=== PATIENT | male | born 1955 | race Caucasian/White ===

== ENCOUNTER 2019-10-08 16:02 | Emergency (ER) | payer OTHER, SELFPAY ==
[2019-10-08 16:49] VITALS: BP 158/87; PULSE 77; RESP 16; TEMP 36.8; O2SAT 95; BMI 39.5
[2019-10-08 17:33] LABS: Basophils % 0.6 %; Eosinophils # 0.1 10^3/uL (0.0-0.8); Hematocrit 44.1 % (42.0-52.0); Hemoglobin 13.4 g/dL (11.7-16.6); Lymphocytes # 1.9 10^3/uL (0.8-4.8); Lymphocytes % 27.9 %; Mean Corpuscular HGB Conc 30.4 g/dL (30.0-36.0); Mean Corpuscular Hemoglobin 26.6 pg (28.0-34.0); Mean Corpuscular Volume 87.5 fL (80-94); Mean Platelet Volume 8.6 fL (7.4-10.4); Monocytes # 0.7 10^3/uL (0.2-0.9); Monocytes % 10.1 %; Neutrophils % 59.8 %; Nucleated Red Blood Cells % 0 %; Platelet Count 245 10^3/cmm (130-400); Red Blood Count 5.04 10^6/uL (4.1-5.3); Red Cell Distribution Width 22.2 % (12.1-15.1); White Blood Count 6.8 10^3/uL (4.0-10.0)
[2019-10-08 17:37] LABS: Add RBC Morph No
[2019-10-08 17:50] LABS: Alanine Aminotransferase 38 U/L (0-41); Albumin Level 4.4 g/dL (3.5-5.2); Alkaline Phosphatase 56 IU/L (40-130); Anion Gap 18.1 (5-19); Aspartate Amino Transferase 39 U/L (0-40); Blood Urea Nitrogen 11 mg/dL (8-23); Carbon Dioxide 25 mmol/L (22-29); Chloride 92 mmol/L (98-107); Globulin 3.6 g/dL (1.3-4.6); Glomerular Filtration Rate 135.6 mL/min (90-130); Glucose 204 mg/dL (74-106); Potassium 4.1 mmol/L (3.5-5.1); Sodium 131 mmol/L (136-145); Total Bilirubin 0.4 mg/dL (0.15-1.2)
--- NOTE | 2019-10-08 19:39 | ED_ITS ---
HPI - Male Genitourinary General Chief complaint: Urogenital-Male Stated complaint: c/o of rectum prolapsing when he tries to have BM- today, hx of current colon CA tx Time Seen by Provider: 10/08/19 19:28 Source: patient Mode of arrival: ambulatory Related Data Allergies Allergy/AdvReac Type Severity Reaction Status Date / Time aspirin Allergy ALGY-Hives Verified 10/08/19 17:03 MDM - Male Lab Data Result diagrams: 10/08/19 17:25 10/08/19 17:25 Labs: Lab Results 10/08/19 10/08/19 Range/Units 17:25 17:25 WBC 6.8 (4.0-10.0) 10^3/uL RBC 5.04 (4.1-5.3) 10^6/uL Hgb 13.4 (11.7-16.6) g/dL Hct 44.1 (42.0-52.0) % MCV 87.5 (80-94) fL MCH 26.6 L (28.0-34.0) pg MCHC 30.4 (30.0-36.0) g/dL RDW 22.2 H (12.1-15.1) % Plt Count 245 (130-400) 10^3/cmm MPV 8.6 (7.4-10.4) fL Neut % (Auto) 59.8 % Lymph % (Auto) 27.9 % [place] % (Auto) 10.1 % Eos % (Auto) 1.0 % Baso % (Auto) 0.6 % Neut # (Auto) 4.0 (1.8-7.7) 10^3/uL Lymph # (Auto) 1.9 (0.8-4.8) 10^3/uL [place] # (Auto) 0.7 (0.2-0.9) 10^3/uL Eos # (Auto) 0.1 (0.0-0.8) 10^3/uL Baso # (Auto) 0.0 (0.0-0.1) 10^3/uL Nucleated RBC % (auto) 0 % Nucleated RBCs # 0.0 /100WBC Sodium 131 L (136-145) mmol/L Potassium 4.1 (3.5-5.1) mmol/L Chloride 92 L (98-107) mmol/L Carbon Dioxide 25 (22-29) mmol/L Anion Gap 18.1 (5-19) BUN 11 (8-23) mg/dL Creatinine 0.6 L (0.7-1.2) mg/dL GFR Calculation 135.6 H (90-130) mL/min Glucose 204 H (74-106) mg/dL Calcium 10.0 (8.8-10.2) mg/Dl Total Bilirubin 0.4 (0.15-1.2) mg/dL AST 39 (0-40) U/L ALT 38 (0-41) U/L Alkaline Phosphatase 56 (40-130) IU/L Total Protein 8.0 (6.6-8.7) g/dL Albumin 4.4 (3.5-5.2) g/dL Globulin 3.6 (1.3-4.6) g/dL
--- NOTE | 2019-10-08 19:45 | W.ED.GENADLT ---
Documented by User: JAYME Rodriguez 10/08/19 19:48 HPI - General Adult General: Chief complaint: Urogenital-Male Stated complaint: c/o of rectum prolapsing when he tries to have BM- today, hx of current colon CA tx Time Seen by Provider: 10/08/19 19:28 History of Present Illness: MD complaint: rectal prolapse Onset (ago): day(s) Severity: moderate Quality: burning Associated symptoms: Deny chest pain, dyspnea, headache(s), nausea, rash or vomiting Review of Systems Const: Denies: fever, chills or body aches Eyes: Denies: change in vision or blurry vision ENMT: Denies: throat pain or nasal congestion Card: Denies: chest pain or shortness of breath on exertion Resp: Denies: shortness of breath, productive cough or non-productive cough GI: Reports: painful bowel movements (bowel protruding with BM), rectal pain and blood in stool; Denies: abdominal pain, nausea, vomiting, rectal swelling, rectal itching or mucus in stool : Denies: difficulty urinating Musc: Denies: extremity pain Skin/Breast: Denies: rash Neuro: Denies: headache Psych: Denies: anxiety or depression Oswaldo/Lymph: Denies: easy bruising PFSH ED PFSH: Statuses (acute, chronic, etc) shown below reflect problem list status as previously entered and may not be historically accurate Social History Smoking and tobacco status: former smoker Physical Exam Const: COMMON NORMALS: no apparent distress, average body habitus and oriented x3 HENMT: COMMON NORMALS: normocephalic HEAD & SCALP: normal to inspection and normocephalic FACE & SINUS: normal facial exam Eye: COMMON NORMALS: conjunctivae normal GENERAL EYE: normal appearance of both eyes CONJUNCTIVA: Yes conjunctivae normal Neck/C-Spine: COMMON NORMALS: no JVD Chest: COMMONS NORMALS: inspection of chest normal Resp: COMMON NORMALS: normal respiratory effort and clear to auscultation bilaterally AUSCULTATION: clear to auscultation bilaterally Cardio: COMMON NORMALS: no JVD, regular rate and regular rhythm RATE: regular rate RHYTHM: regular rhythm GI: COMMON NORMALS: normal to inspection, nondistended, normoactive bowel sounds RECTAL EXAM: Yes visual inspection abnormal, Yes heme positive stool, No hemorrhoids, Yes prolapse (none seen), Yes excoriation and Yes tenderness Extremity: COMMON NORMALS: normal to inspection and full ROM Neuro: COMMON NORMALS: oriented x3 Course Vital Signs: Vital signs: Vital Signs Temperature 98.2 F 10/08/19 16:49 Pulse Rate 68 10/08/19 21:21 Respiratory Rate 18 10/08/19 21:21 Blood Pressure 142/71 10/08/19 21:21 Pulse Oximetry 96 10/08/19 21:21 [facility] - General Adult Lab Data: Labs: Lab Results 10/08/19 10/08/19 10/08/19 Range/Units 17:25 17:25 17:25 WBC 6.8 (4.0-10.0) 10^3/ uL RBC 5.04 (4.1-5.3) 10^6/u L Hgb 13.4 (11.7-16.6) g/dL Hct 44.1 (42.0-52.0) % MCV 87.5 (80-94) fL MCH 26.6 L (28.0-34.0) pg MCHC 30.4 (30.0-36.0) g/dL RDW 22.2 H (12.1-15.1) % Plt Count 245 (130-400) 10^3/c mm MPV 8.6 (7.4-10.4) fL Neut % (Auto) 59.8 % Lymph % (Auto) 27.9 % [place] % (Auto) 10.1 % Eos % (Auto) 1.0 % Baso % (Auto) 0.6 % Neut # (Auto) 4.0 (1.8-7.7) 10^3/u L Lymph # (Auto) 1.9 (0.8-4.8) 10^3/u L [place] # (Auto) 0.7 (0.2-0.9) 10^3/u L Eos # (Auto) 0.1 (0.0-0.8) 10^3/u L Baso # (Auto) 0.0 (0.0-0.1) 10^3/u L Nucleated RBC % (a uto) 0 % Nucleated RBCs # 0.0 /100WBC PT 20.70 H (10.5-13.3) SECO NDS INR 1.72 H (0.8-1.2) Sodium 131 L (136-145) mmol/L Potassium 4.1 (3.5-5.1) mmol/L Chloride 92 L (98-107) mmol/L Carbon Dioxide 25 (22-29) mmol/L Anion Gap 18.1 (5-19) BUN 11 (8-23) mg/dL Creatinine 0.6 L (0.7-1.2) mg/dL GFR Calculation 135.6 H (90-130) mL/min Glucose 204 H (74-106) mg/dL Calcium 10.0 (8.8-10.2) mg/Dl Total Bilirubin 0.4 (0.15-1.2) mg/dL AST 39 (0-40) U/L ALT 38 (0-41) U/L Alkaline Phosphata se 56 (40-130) IU/L Total Protein 8.0 (6.6-8.7) g/dL Albumin 4.4 (3.5-5.2) g/dL Globulin 3.6 (1.3-4.6) g/dL Urine Color (Yellow) Urine Appearance (CLEAR) Urine pH (5-7) Ur Specific Gravit y (1.005-1.030) Urine Protein (Negative) Urine Glucose (UA) (Normal) Urine Ketones (Negative) Urine Occult Blood (Negative) Urine Nitrate (Negative) Urine Bilirubin (Negative) Urine Urobilinogen (Negative) mg/dL Ur Leukocyte [place] (Negative) 10/08/19 Range/Units 19:50 WBC (4.0-10.0) 10^3/ uL RBC (4.1-5.3) 10^6/u L Hgb (11.7-16.6) g/dL Hct (42.0-52.0) % MCV (80-94) fL MCH (28.0-34.0) pg MCHC (30.0-36.0) g/dL RDW (12.1-15.1) % Plt Count (130-400) 10^3/c mm MPV (7.4-10.4) fL Neut % (Auto) % Lymph % (Auto) % [place] % (Auto) % Eos % (Auto) % Baso % (Auto) % Neut # (Auto) (1.8-7.7) 10^3/u L Lymph # (Auto) (0.8-4.8) 10^3/u L [place] # (Auto) (0.2-0.9) 10^3/u L Eos # (Auto) (0.0-0.8) 10^3/u L Baso # (Auto) (0.0-0.1) 10^3/u L Nucleated RBC % (a uto) % Nucleated RBCs # /100WBC PT (10.5-13.3) SECO NDS INR (0.8-1.2) Sodium (136-145) mmol/L Potassium (3.5-5.1) mmol/L Chloride (98-107) mmol/L Carbon Dioxide (22-29) mmol/L Anion Gap (5-19) BUN (8-23) mg/dL Creatinine (0.7-1.2) mg/dL GFR Calculation (90-130) mL/min Glucose (74-106) mg/dL Calcium (8.8-10.2) mg/Dl Total Bilirubin (0.15-1.2) mg/dL AST (0-40) U/L ALT (0-41) U/L Alkaline Phosphata se (40-130) IU/L Total Protein (6.6-8.7) g/dL Albumin (3.5-5.2) g/dL Globulin (1.3-4.6) g/dL Urine Color Yellow (Yellow) Urine Appearance Clear (CLEAR) Urine pH 7 (5-7) Ur Specific [place]it y 1.010 (1.005-1.030) Urine Protein Neg (Negative) Urine Glucose (UA) 1+ (Normal) Urine Ketones Negative (Negative) Urine Occult Blood Neg (Negative) Urine Nitrate Negative (Negative) Urine Bilirubin Neg (Negative) Urine Urobilinogen Norm (Negative) mg/dL Ur Leukocyte Rosa [place] Negative (Negative) Discharge Plan Discharge Patient Disposition: Home, Self-Care Clinical Impression: Rectal prolapse, Rectal burning Condition: Stable Prescriptions: No Action metformin 500 mg Tablet 500 mg PO BID RF: 0 warfarin 7.5 mg Tablet 7.5 mg PO DAILY RF: 0 Zofran 8 mg Tablet 8 mg PO Q12H PRN (Reason: Nausea) RF: 0 lisinopril 20 mg Tablet 20 mg PO DAILY RF: 0 Compazine 10 mg Tablet 10 mg PO Q6H PRN (Reason: Nausea) RF: 0 gabapentin 300 mg Capsule 300 mg PO TID RF: 0 montelukast 10 mg Tablet 10 mg PO BEDTIME RF: 0 Lasix 20 mg Tablet 20 mg PO DAILY RF: 0 metoprolol tartrate 25 mg Tablet 25 mg PO DAILY RF: 0 Ambien CR 6.25 mg Tablet,Ext Release Multiphase 6.25 mg PO BEDTIME RF: 0 Referrals: Kelton Lanier [Primary Care Provider] - Discharge Activity: Resume usual activity Patient Instructions: Topical Barrier Preparations (On the skin) Activity Restrictions/Additional Instructions: pt to contact surgeon in morning, use immodium, rx given for amoxil and mycolog cream Discharge Date/Time: 10/08/19 21:29 Coding Level of Care Code ED Process Description Writer for Chg Fwd Exam Problem Focused Documented by User: Patrick Correa MD 10/09/19 02:19 HPI - General Adult General: Chief complaint: Urogenital-Male Stated complaint: c/o of rectum prolapsing when he tries to have BM- today, hx of current colon CA tx Time Seen by Provider: 10/08/19 19:28 PFSH ED PFSH: Statuses (acute, chronic, etc) shown below reflect problem list status as previously entered and may not be historically accurate Social History Smoking and tobacco status: former smoker Course Vital Signs: Vital signs: Vital Signs Temperature 98.2 F 10/08/19 16:49 Pulse Rate 68 10/08/19 21:21 Respiratory Rate 18 10/08/19 21:21 Blood Pressure 142/71 10/08/19 21:21 Pulse Oximetry 96 10/08/19 21:21 MDM - General Adult Lab Data: Labs: Lab Results 10/08/19 10/08/19 10/08/19 Range/Units 17:25 17:25 17:25 WBC 6.8 (4.0-10.0) 10^3/ uL RBC 5.04 (4.1-5.3) 10^6/u L Hgb 13.4 (11.7-16.6) g/dL Hct 44.1 (42.0-52.0) % MCV 87.5 (80-94) fL MCH 26.6 L (28.0-34.0) pg MCHC 30.4 (30.0-36.0) g/dL RDW 22.2 H (12.1-15.1) % Plt Count 245 (130-400) 10^3/c mm MPV 8.6 (7.4-10.4) fL Neut % (Auto) 59.8 % Lymph % (Auto) 27.9 % [place] % (Auto) 10.1 % Eos % (Auto) 1.0 % Baso % (Auto) 0.6 % Neut # (Auto) 4.0 (1.8-7.7) 10^3/u L Lymph # (Auto) 1.9 (0.8-4.8) 10^3/u L [place] # (Auto) 0.7 (0.2-0.9) 10^3/u L Eos # (Auto) 0.1 (0.0-0.8) 10^3/u L Baso # (Auto) 0.0 (0.0-0.1) 10^3/u L Nucleated RBC % (a uto) 0 % Nucleated RBCs # 0.0 /100WBC PT 20.70 H (10.5-13.3) SECO NDS INR 1.72 H (0.8-1.2) Sodium 131 L (136-145) mmol/L Potassium 4.1 (3.5-5.1) mmol/L Chloride 92 L (98-107) mmol/L Carbon Dioxide 25 (22-29) mmol/L Anion Gap 18.1 (5-19) BUN 11 (8-23) mg/dL Creatinine 0.6 L (0.7-1.2) mg/dL GFR Calculation 135.6 H (90-130) mL/min Glucose 204 H (74-106) mg/dL Calcium 10.0 (8.8-10.2) mg/Dl Total Bilirubin 0.4 (0.15-1.2) mg/dL AST 39 (0-40) U/L ALT 38 (0-41) U/L Alkaline Phosphata se 56 (40-130) IU/L Total Protein 8.0 (6.6-8.7) g/dL Albumin 4.4 (3.5-5.2) g/dL Globulin 3.6 (1.3-4.6) g/dL Urine Color (Yellow) Urine Appearance (CLEAR) Urine pH (5-7) Ur Specific Gravit y (1.005-1.030) Urine Protein (Negative) Urine Glucose (UA) (Normal) Urine Ketones (Negative) Urine Occult Blood (Negative) Urine Nitrate (Negative) Urine Bilirubin (Negative) Urine Urobilinogen (Negative) mg/dL Ur Leukocyte Rosa ase (Negative) 10/08/19 Range/Units 19:50 WBC (4.0-10.0) 10^3/ uL RBC (4.1-5.3) 10^6/u L Hgb (11.7-16.6) g/dL Hct (42.0-52.0) % MCV (80-94) fL MCH (28.0-34.0) pg MCHC (30.0-36.0) g/dL RDW (12.1-15.1) % Plt Count (130-400) 10^3/c mm MPV (7.4-10.4) fL Neut % (Auto) % Lymph % (Auto) % [place] % (Auto) % Eos % (Auto) % Baso % (Auto) % Neut # (Auto) (1.8-7.7) 10^3/u L Lymph # (Auto) (0.8-4.8) 10^3/u L [place] # (Auto) (0.2-0.9) 10^3/u L Eos # (Auto) (0.0-0.8) 10^3/u L Baso # (Auto) (0.0-0.1) 10^3/u L Nucleated RBC % (a uto) % Nucleated RBCs # /100WBC PT (10.5-13.3) SECO NDS INR (0.8-1.2) Sodium (136-145) mmol/L Potassium (3.5-5.1) mmol/L Chloride (98-107) mmol/L Carbon Dioxide (22-29) mmol/L Anion Gap (5-19) BUN (8-23) mg/dL Creatinine (0.7-1.2) mg/dL GFR Calculation (90-130) mL/min Glucose (74-106) mg/dL Calcium (8.8-10.2) mg/Dl Total Bilirubin (0.15-1.2) mg/dL AST (0-40) U/L ALT (0-41) U/L Alkaline Phosphata se (40-130) IU/L Total Protein (6.6-8.7) g/dL Albumin (3.5-5.2) g/dL Globulin (1.3-4.6) g/dL Urine Color Yellow (Yellow) Urine Appearance Clear (CLEAR) Urine pH 7 (5-7) Ur Specific Gravit y 1.010 (1.005-1.030) Urine Protein Neg (Negative) Urine Glucose (UA) 1+ (Normal) Urine Ketones Negative (Negative) Urine Occult Blood Neg (Negative) Urine Nitrate Negative (Negative) Urine Bilirubin Neg (Negative) Urine Urobilinogen Norm (Negative) mg/dL Ur Leukocyte Rosa a[place] Negative (Negative) Discharge Plan Discharge Patient Disposition: Home, Self-Care Clinical Impression: Rectal prolapse, Rectal burning Condition: Stable Prescriptions: No Action metformin 500 mg Tablet 500 mg PO BID RF: 0 warfarin 7.5 mg Tablet 7.5 mg PO DAILY RF: 0 Zofran 8 mg Tablet 8 mg PO Q12H PRN (Reason: Nausea) RF: 0 lisinopril 20 mg Tablet 20 mg PO DAILY RF: 0 Compazine 10 mg Tablet 10 mg PO Q6H PRN (Reason: Nausea) RF: 0 gabapentin 300 mg Capsule 300 mg PO TID RF: 0 montelukast 10 mg Tablet 10 mg PO BEDTIME RF: 0 Lasix 20 mg Tablet 20 mg PO DAILY RF: 0 metoprolol tartrate 25 mg Tablet 25 mg PO DAILY RF: 0 Ambien CR 6.25 mg Tablet,Ext Release Multiphase 6.25 mg PO BEDTIME RF: 0 Referrals: Kelton Lanier [Primary Care Provider] - Discharge Activity: Resume usual activity Patient Instructions: Topical Barrier Preparations (On the skin) Activity Restrictions/Additional Instructions: pt to contact surgeon in morning, use immodium, rx given for amoxil and mycolog cream Discharge Date/Time: 10/08/19 21:29 Coding Level of Care Code ED Process Description Writer for Chg Fwd Exam Problem Focused
--- NOTE | 2019-10-08 19:49 | PC.NURSE ---
PT PRESENTS WITH C/O RECTAL PROLAPSE
--- NOTE | 2019-10-08 19:53 | W.ED.MALEGU ---
HPI - Male Genitourinary General Chief complaint: Urogenital-Male Stated complaint: c/o of rectum prolapsing when he tries to have BM- today, hx of current colon CA tx Time Seen by Provider: 10/08/19 19:28 Related Data Home Medications Medication Instructions Recorded Confirmed furosemide [Lasix] 20 mg PO DAILY 10/08/19 10/08/19 gabapentin 300 mg PO TID 10/08/19 10/08/19 lisinopril 20 mg PO DAILY 10/08/19 10/08/19 metformin 500 mg PO BID 10/08/19 10/08/19 metoprolol tartrate 25 mg PO DAILY 10/08/19 10/08/19 montelukast 10 mg PO BEDTIME 10/08/19 10/08/19 ondansetron HCl [Zofran] 8 mg PO Q12H PRN 10/08/19 10/08/19 prochlorperazine maleate 10 mg PO Q6H PRN 10/08/19 10/08/19 [Compazine] warfarin 7.5 mg PO DAILY 10/08/19 10/08/19 zolpidem [Ambien CR] 6.25 mg PO BEDTIME 10/08/19 10/08/19 Allergies Allergy/AdvReac Type Severity Reaction Status Date / Time aspirin Allergy ALGY-Hives Verified 10/08/19 17:03 Discharge Plan Discharge Patient Disposition: Home, Self-Care Clinical Impression: Rectal prolapse, Rectal burning Condition: Stable Prescriptions: No Action metformin 500 mg Tablet 500 mg PO BID RF: 0 warfarin 7.5 mg Tablet 7.5 mg PO DAILY RF: 0 Zofran 8 mg Tablet 8 mg PO Q12H PRN (Reason: Nausea) RF: 0 lisinopril 20 mg Tablet 20 mg PO DAILY RF: 0 Compazine 10 mg Tablet 10 mg PO Q6H PRN (Reason: Nausea) RF: 0 gabapentin 300 mg Capsule 300 mg PO TID RF: 0 montelukast 10 mg Tablet 10 mg PO BEDTIME RF: 0 Lasix 20 mg Tablet 20 mg PO DAILY RF: 0 metoprolol tartrate 25 mg Tablet 25 mg PO DAILY RF: 0 Ambien CR 6.25 mg Tablet,Ext Release Multiphase 6.25 mg PO BEDTIME RF: 0 Referrals: Kelton Lanier [Primary Care Provider] - Discharge Activity: Resume usual activity Patient Instructions: Topical Barrier Preparations (On the skin) Activity Restrictions/Additional Instructions: pt to contact surgeon in morning, use immodium, rx given for amoxil and mycolog cream MDM - Male Lab Data Result diagrams: 10/08/19 17:25 10/08/19 17:25 Labs: Lab Results 10/08/19 10/08/19 10/08/19 Range/Units 17:25 17:25 19:50 WBC 6.8 (4.0-10.0) 10^3/uL RBC 5.04 (4.1-5.3) 10^6/uL Hgb 13.4 (11.7-16.6) g/dL Hct 44.1 (42.0-52.0) % MCV 87.5 (80-94) fL MCH 26.6 L (28.0-34.0) pg MCHC 30.4 (30.0-36.0) g/dL RDW 22.2 H (12.1-15.1) % Plt Count 245 (130-400) 10^3/cmm MPV 8.6 (7.4-10.4) fL Neut % (Auto) 59.8 % Lymph % (Auto) 27.9 % [place] % (Auto) 10.1 % Eos % (Auto) 1.0 % Baso % (Auto) 0.6 % Neut # (Auto) 4.0 (1.8-7.7) 10^3/uL Lymph # (Auto) 1.9 (0.8-4.8) 10^3/uL [place] # (Auto) 0.7 (0.2-0.9) 10^3/uL Eos # (Auto) 0.1 (0.0-0.8) 10^3/uL Baso # (Auto) 0.0 (0.0-0.1) 10^3/uL Nucleated RBC % (auto) 0 % Nucleated RBCs # 0.0 /100WBC Sodium 131 L (136-145) mmol/L Potassium 4.1 (3.5-5.1) mmol/L Chloride 92 L (98-107) mmol/L Carbon Dioxide 25 (22-29) mmol/L Anion Gap 18.1 (5-19) BUN 11 (8-23) mg/dL Creatinine 0.6 L (0.7-1.2) mg/dL GFR Calculation 135.6 H (90-130) mL/min Glucose 204 H (74-106) mg/dL Calcium 10.0 (8.8-10.2) mg/Dl Total Bilirubin 0.4 (0.15-1.2) mg/dL AST 39 (0-40) U/L ALT 38 (0-41) U/L Alkaline Phosphatase 56 (40-130) IU/L Total Protein 8.0 (6.6-8.7) g/dL Albumin 4.4 (3.5-5.2) g/dL Globulin 3.6 (1.3-4.6) g/dL Urine Color Yellow (Yellow) Urine Appearance Clear (CLEAR) Urine pH 7 (5-7) Ur Specific [place] 1.010 (1.005-1.030) Urine Protein Neg (Negative) Urine Glucose (UA) 1+ (Normal) Urine Ketones Negative (Negative) Urine Occult Blood Neg (Negative) Urine Nitrate Negative (Negative) Urine Bilirubin Neg (Negative) Urine Urobilinogen Norm (Negative) mg/dL Ur Leukocyte Esterase Negative (Negative)
[2019-10-08 20:08] LABS: Add Urine Microscopic? NO
[2019-10-08 20:22] LABS: Bilirubin Urine Neg (Negative); Blood Urine Neg (Negative); Glucose Urine UA 1+ (Normal); Ketones Urine Negative (Negative); Leukocyte Esterase Urine Negative (Negative); Nitrate Urine Negative (Negative); Protein Urine Neg (Negative); Urine Appearance Clear (CLEAR); Urine Color Yellow (Yellow); Urobilinogen Urine Norm (Negative); pH Urine 7 (5-7)
[2019-10-08 21:11] LABS: INR 1.72 (0.8-1.2)
[2019-10-08 21:21] VITALS: BP 142/71; PULSE 68; RESP 18; O2SAT 96
== END 2019-10-08 21:29 | disposition home or self-care (01) ==
PROVIDERS: Family Medicine; Emergency Provider Nurse Practitioner Family; PCP Student in an Organized Health Care Education/Training Program
DX: K62.3 Rectal prolapse (principal); Z87.891 Personal history of nicotine dependence
CPT/HCPCS: 36415; 80053; 81003; 85025; 85610; 99282

== ENCOUNTER → 2020-05-11 16:00 | Outpatient (BNVA) | payer MEDICARE, SELFPAY | PROVIDERS: PCP Student in an Organized Health Care Education/Training Program; Visit Provider Nurse Practitioner Family | DX: Z20.828 Contact with and (suspected) exposure to other viral communicable diseases (principal); Z11.59 Encounter for screening for other viral diseases | CPT/HCPCS: 87635 ==

== ENCOUNTER 2020-09-12 10:33 | Emergency (ER) | payer MEDICARE, SELFPAY ==
[2020-09-12] VITALS (8 sets, daily range): BP systolic 121–129; BP diastolic 71–100; PULSE 72–91; RESP 16–18; TEMP 36.5; O2SAT 91–96; BMI 35.6
--- NOTE | 2020-09-12 10:51 | W.ED.ABDPA2 ---
HPI - Abdominal Pain General: Chief Complaint: Abdominal Pain Stated Complaint: R ABDOMEN PAIN Time Seen by Provider: 09/12/20 10:38 Source: patient and family Mode of arrival: ambulatory Limitations: no limitations History of Present Illness: HPI narrative: Patient is a 65-year-old male with stage IV colon cancer who is currently on chemotherapy. He complains of right sided abdominal/right flank pain that started 3 days ago. Pain is worse on deep inspiration and on laying down. When he lies down he has trouble breathing. He denies any fever, nausea or vomiting. He has some diarrhea but he believes it is due to chemotherapy. Because of the pain he is here to be evaluated MD elicited complaint: abdominal pain and flank pain Onset (ago): day(s) (3) Pain Consistency: constant Location: RUQ and R flank Severity: severe Quality: cramping Associated Symptoms: Denies anorexia, belching, bloating, change in bowel habits, change in stool character, chills, coffee ground emesis, constipation, GI cramping, diarrhea, dyspepsia, dysuria, excessive flatus, fever(s), heartburn, hematochezia, hematuria, hematemesis, fecal incontinence, loose stools, melena, nausea, poor appetite, syncope and vomiting Review of Systems General: Reports: 10 or more systems reviewed and unremarkable except in HPI and below Const: Denies: fever(s) or chills Eyes: Denies: change in vision or blurry vision ENMT: Denies: throat pain, enlarged tonsils, odynophagia, hoarseness, mouth pain or swelling of lips/tongue Card: Denies: syncope Resp: Denies: dyspnea, productive cough or non-productive cough GI: Denies: nausea, vomiting, hematemesis, coffee ground emesis, heartburn, diarrhea, constipation, bloating, GI cramping, belching, excessive flatus, fecal incontinence, change in bowel habits, change in stool character, hematochezia or melena : Denies: dysuria or hematuria Musc: Denies: neck pain, back pain or extremity swelling Skin/Breast: Denies: rash, pruritus or erythema Neuro: Denies: headache(s), numbness in extremities or weakness in extremities Endo: Denies: polyuria, polydipsia or tired all the time PFSH ED PFSH: Medical History CHF (congestive heart failure) Colon cancer COPD (chronic obstructive pulmonary disease) Diabetes Hypertension Insomnia Neuropathy GENIE (obstructive sleep apnea) Social History Smoking and tobacco status: former smoker Alcohol intake: never Physical Exam Const: COMMON NORMALS: no acute distress, average body habitus, patient oriented x3, no limitations, healthy appearing, alert and well nourished HENMT: COMMON NORMALS: normocephalic, atraumatic and moist oral mucous membranes HEAD & SCALP: normocephalic and atraumatic Neck/C-Spine: COMMON NORMALS: no meningeal signs and no JVD Resp: COMMON NORMALS: normal respiratory effort, No retractions, No use of accessory muscles, clear to auscultation bilaterally and percussion normal AUSCULTATION: clear to auscultation bilaterally PERCUSSION: percussion normal Cardio: COMMON NORMALS: no JVD, regular rate, regular rhythm, S1 normal heart sound present, S2 normal heart sound present, No gallops present (Cardio), No clicks present (Cardio), No murmurs present (Cardio), No rub (Cardio) and Peripheral pulses 2+ throughout RATE: regular rate RHYTHM: regular rhythm HEART SOUNDS: S1 normal heart sound present and S2 normal heart sound present PERIPHERAL PULSES: Peripheral pulses 2+ throughout GI: COMMON NORMALS: Normal to inspection, nondistended, normoactive bowel sounds present, Soft to palpation, No hepatosplenomegaly present, no masses and no bruits PALPATION: Yes Soft to palpation, Yes Tenderness to palpation present (GI) Details: RUQ, Yes Guarding due to palpation present (GI) and Yes No hepatosplenomegaly present Back/Pelvis: GENERAL BACK: Yes CVA tenderness CVA tenderness: right Extremity: COMMON NORMALS: normal to inspection, full ROM, capillary refill normal, no calf tenderness and no pedal edema Neuro: COMMON NORMALS: patient oriented x3 SENSORIUM/ORIENTATION: Yes alert MENINGEAL SIGNS: Yes no meningeal signs Skin: COMMON NORMALS: no rashes or lesions noted, no wounds, turgor normal, no jaundice, no petechiae and no mottling GENERAL SKIN EXAM: no rashes or lesions noted and turgor normal Course Reevaluation(s): Reevaluation #1: discussed her lab and imaging findings with him. No acute findings. We will discharge him home with pain medication as the pain might be muscular. No life-threatening cause for his pain could be identified. He voiced understanding and he is in agreement with the plan Time: 15:09 Vital Signs: Vital signs: Vital Signs Temperature 97.7 F 09/12/20 10:36 Pulse Rate 91 09/12/20 15:20 Respiratory Rate 16 09/12/20 15:20 Blood Pressure 129/87 09/12/20 15:20 Pulse Oximetry 91 09/12/20 15:20 MDM - Abdominal Pain MDM Narrative: Medical decision making narrative: 65-year-old male who presents with right flank/right upper quadrant pain. Evaluation in this emergency department was negative for acute findings. Because of the location of the pain and the fact that he is on chemotherapy for cancer plus he has had a prior history of PEs a CTA of his lungs was done which was negative for PE or other acute findings. A CT of his abdomen was also negative. Lab work was unremarkable. He is therefore sent home with a prescription for pain medication. Medical Records: Attestation: I reviewed the patient's medical records. Lab Data: Attestation: I reviewed the patient's lab results. Labs: Lab Results 09/12/20 09/12/20 09/12/20 Range/Units 11:30 12:05 12:05 WBC 8.9 (4.0-10.0) 10^3/ uL RBC 4.50 (4.1-5.3) 10^6/u L Hgb 13.6 (11.7-16.6) g/dL Hct 41.7 L (42.0-52.0) % MCV 92.7 (80-94) fL MCH 30.2 (28.0-34.0) pg MCHC 32.6 (30.0-36.0) g/dL RDW 14.6 (12.1-15.1) % Plt Count 205 (130-400) 10^3/c mm MPV 9.0 (7.4-10.4) fL Neut % (Auto) 73.1 % Lymph % (Auto) 18.8 % [place] % (Auto) 5.3 % Eos % (Auto) 1.6 % Baso % (Auto) 0.4 % Neut # (Auto) 6.50 (1.8-7.7) 10^3/u L Lymph # (Auto) 1.7 (0.8-4.8) 10^3/u L [place] # (Auto) 0.5 (0.2-0.9) 10^3/u L Eos # (Auto) 0.1 (0.0-0.8) 10^3/u L Baso # (Auto) 0.0 (0.0-0.1) 10^3/u L Nucleated RBC % (a uto) 0 % Nucleated RBCs # 0.0 /100WBC D-Dimer 1.73 H (0-0.59) ug/mIFE U Sodium (136-145) mmol/L Potassium (3.5-5.1) mmol/L Chloride (98-107) mmol/L Carbon Dioxide (22-29) mmol/L Anion Gap (5-19) BUN (8-23) mg/dL Creatinine (0.7-1.2) mg/dL GFR Calculation (90-130) mL/min Glucose (65-115) mg/dL Calculated Osmolal ity (285-295) mOsm/k g Lactate (0.5-2.2) mmol/L Calcium (8.5-10.5) mg/dL Total Bilirubin (0.15-1.2) mg/dL AST (0-40) U/L ALT (0-41) U/L Alkaline Phosphata se (40-130) IU/L Creatine Kinase (39-308) U/L C-Reactive Protein (0.0-4.9) mg/L Total Protein (6.6-8.7) g/dL Albumin (3.5-5.2) g/dL Globulin (1.3-4.6) g/dL Lipase (13-60) U/L Urine Color Straw (Yellow) Urine Appearance Clear (CLEAR) Urine pH 5 (5-7) Ur Specific Gravit y 1.005 (1.005-1.030) Urine Protein Neg (Negative) Urine Glucose (UA) Norm (Normal) Urine Ketones Negative (Negative) Urine Blood Neg (Negative) Urine Nitrate Negative (Negative) Urine Bilirubin Neg (Negative) Urine Urobilinogen Norm (Negative) mg/dL Ur Leukocyte Rosa ase Negative (Negative) 09/12/20 09/12/20 09/12/20 Range/Units 12:05 12:05 13:20 WBC (4.0-10.0) 10^3/ uL RBC (4.1-5.3) 10^6/u L Hgb (11.7-16.6) g/dL Hct (42.0-52.0) % MCV (80-94) fL MCH (28.0-34.0) pg MCHC (30.0-36.0) g/dL RDW (12.1-15.1) % Plt Count (130-400) 10^3/c mm MPV (7.4-10.4) fL Neut % (Auto) % Lymph % (Auto) % [place] % (Auto) % Eos % (Auto) % Baso % (Auto) % Neut # (Auto) (1.8-7.7) 10^3/u L Lymph # (Auto) (0.8-4.8) 10^3/u L [place] # (Auto) (0.2-0.9) 10^3/u L Eos # (Auto) (0.0-0.8) 10^3/u L Baso # (Auto) (0.0-0.1) 10^3/u L Nucleated RBC % (a uto) % Nucleated RBCs # /100WBC D-Dimer (0-0.59) ug/mIFE U Sodium 133 L (136-145) mmol/L Potassium 4.5 (3.5-5.1) mmol/L Chloride 97 L (98-107) mmol/L Carbon Dioxide 26 (22-29) mmol/L Anion Gap 14.5 (5-19) BUN 8 (8-23) mg/dL Creatinine 0.5 L (0.7-1.2) mg/dL GFR Calculation 166.9 H (90-130) mL/min Glucose 141 H (65-115) mg/dL Calculated Osmolal ity 277 L (285-295) mOsm/k g Lactate 1.9 (0.5-2.2) mmol/L Calcium 9.2 (8.5-10.5) mg/dL Total Bilirubin 0.4 (0.15-1.2) mg/dL AST 21 (0-40) U/L ALT 28 (0-41) U/L Alkaline Phosphata se 51 (40-130) IU/L Creatine Kinase 58 (39-308) U/L C-Reactive Protein 13.1 H (0.0-4.9) mg/L Total Protein 7.0 (6.6-8.7) g/dL Albumin 4.2 (3.5-5.2) g/dL Globulin 2.8 (1.3-4.6) g/dL Lipase 40 (13-60) U/L Urine Color (Yellow) Urine Appearance (CLEAR) Urine pH (5-7) Ur Specific Gravit y (1.005-1.030) Urine Protein (Negative) Urine Glucose (UA) (Normal) Urine Ketones (Negative) Urine Blood (Negative) Urine Nitrate (Negative) Urine Bilirubin (Negative) Urine Urobilinogen (Negative) mg/dL Ur Leukocyte Rosa ase (Negative) Imaging Data ^: CTA Chest: Radiologist's impression: [address] [address] [address] Scan Report Signed Patient: Santos Escalera #: [id number] : 5Acct#:[id number] Age/Sex: 65 / MADM Date: 09/12/20 Loc: [facility] [place]/Bed: Attending Dr: Ordering Provider/Ordering MD: Florina Li [place], [facility] [place] of Service: 09/12/20 Procedure(s): CT angio chest w abd pel w con Accession Number(s): [id number] Report Number: [id number] PROCEDURE INFORMATION: Exam: CT Angiography Chest With Contrast Exam date and time: 09/12/2020 1:29 PM Age: 65 years old Clinical indication: Abdominal pain; Right; Chest wall pain; Prior surgery; Surgery date: 6+ months; Surgery type: Port, multiple abd; Patient HX: HX of stage 4 colon CA - C/O R flank/r pleuritic cp w cough; Additional info: Right lower chest pain, pleuritic chest pain, high pretest TECHNIQUE: Imaging protocol: Computed tomographic angiography of the chest with intravenous contrast. 3D rendering (Not supervised by radiologist): MIP and/or 3D reconstructed images were created by the technologist. Radiation optimization: All CT scans at this facility use at least one of these dose optimization techniques: automated exposure control; mA and/or kV adjustment per patient size (includes targeted exams where dose is matched to clinical indication); or iterative reconstruction. Contrast material: OMNI 350; Contrast volume: 95 ml; Contrast route: INTRAVENOUS (IV); COMPARISON: No relevant prior studies available. RADIATION DOSE METRICS: Total DLP (mGy-cm): 2512.21 FINDINGS: Pulmonary arteries: Normal. No pulmonary emboli. Aorta: Unremarkable. No aortic aneurysm. No aortic dissection. Lungs: There is a 0.5 cm nodule in the right middle lobe on series 2, image 272. There is a calcified granuloma in the right lower lobe of the lung. There is probable atelectasis/scar in the lungs. No significant lung consolidation. Pleural space: Unremarkable. No pneumothorax. No pleural effusion. Heart: Unremarkable. No cardiomegaly. No pericardial effusion. Lymph nodes: Unremarkable. No enlarged lymph nodes. Bones/joints: Degenerative change is identified in the spine. There is no evidence for acute fracture or malalignment. Soft tissues: Unremarkable. IMPRESSION: There are no acute concerning abnormalities. There is a nodule in the right middle lobe of the lung.For patients at low risk (minimal or absent history of smoking and of other known risk factors), no routine follow-up is indicated. For patients at high risk (history of smoking or of other known risk factors), consider optional CT Chest at 12 months. (Reference: Verna) References: Verna Syed, et al. Guidelines for Management of Incidental Pulmonary Nodules Detected on CT Images: From the Fleischner Society 2017. Radiology. 2017;284(1):228-243. PROCEDURE INFORMATION: Exam: CT Abdomen And Pelvis With Contrast Exam date and time: 09/12/2020 1:29 PM Age: 65 years old Clinical indication: Abdominal pain; Right; Chest wall pain; Prior surgery; Surgery date: 6+ months; Surgery type: Port, multiple abd; Patient HX: HX of stage 4 colon CA - C/O R flank/r pleuritic cp w cough; Additional info: Right lower chest pain, pleuritic chest pain, high pretest TECHNIQUE: Imaging protocol: Computed tomography of the abdomen and pelvis with intravenous contrast. Radiation optimization: All CT scans at this facility use at least one of these dose optimization techniques: automated exposure control; mA and/or kV adjustment per patient size (includes targeted exams where dose is matched to clinical indication); or iterative reconstruction. Contrast material: OMNI 350; Contrast volume: 95 ml; Contrast route: INTRAVENOUS (IV); COMPARISON: No relevant prior studies available. RADIATION DOSE METRICS: Total DLP (mGy-cm): 2512.21 FINDINGS: Liver: Findings consistent with fatty infiltration of the liver are identified. No liver mass. Gallbladder and bile ducts: Normal. No calcified stones. No ductal dilation. Pancreas: Normal. No ductal dilation. Spleen: Normal. No splenomegaly. Adrenal glands: Normal. No mass. Kidneys and ureters: Normal. No hydronephrosis. Stomach and bowel: There has been a right hemicolectomy. No bowel obstruction or wall thickening. Appendix: No evidence of appendicitis. Intraperitoneal space: Unremarkable. No free air. No significant fluid collection. Vasculature: Unremarkable. No abdominal aortic aneurysm. Lymph nodes: Unremarkable. No enlarged lymph nodes. Urinary bladder: Unremarkable as visualized. Reproductive: Unremarkable as visualized. Bones/joints: Unremarkable. No acute fracture. Soft tissues: Unremarkable. CT/CT angio chest w abd pel w con IMPRESSION: There are no acute concerning abnormalities. Radiation Dose CTDIVOL = (mGy): DLP = 2512.21~2512.21 (mGy-cm) Dictated By:Dilan Jiménez MD Signed By:Dilan Jiménezigned Date/Time:09/12/201445 DD/ 144 Discharge Plan Discharge Patient Disposition: Home Clinical Impression: Abdominal wall pain in right flank Condition: Stable Prescriptions: [place] 5-325 mg tablet 1 tab PO Q8H PRN (Reason: pain) Qty: 20 RF: 0 Continued ondansetron HCl 8 mg tablet 8 mg PO Q12H PRN (Reason: Nausea) 30 Days Qty: 60 RF: 2 Compazine 10 mg tablet 10 mg PO Q6H PRN (Reason: Nausea) Qty: 60 RF: 2 albuterol sulfate [Ventolin HFA] 90 mcg/actuation HFA aerosol inhaler 2 puff INHALATION Q6H PRN (Reason: Shortness Of Breath) RF: 0 minocycline 100 mg capsule 100 mg PO Q12H RF: 0 montelukast 10 mg Tablet 10 mg PO BEDTIME@1800 RF: 0 metformin 500 mg tablet 500 mg PO BID@06,18 RF: 0 lisinopril 20 mg tablet 20 mg PO DAILY@0600 RF: 0 gabapentin 300 mg capsule 300 mg PO TID@06,,18 RF: 0 Lasix 20 mg tablet 20 mg PO DAILY@0600 RF: 0 metoprolol succinate 25 mg tablet extended release 24 hr 25 mg PO DAILY@0600 RF: 0 zolpidem 10 mg tablet 10 mg PO BEDTIME@1800 RF: 0 Discharge Orders: Discharge ED (Routine); Ordered 09/12/20 Ordered By: Florina Li Referrals: Kelton Lanier [Primary Care Provider] - 1-3 days Discharge Diet: Usual diet Discharge Activity: Increase activity as tolerated Patient Instructions: Hydrocodone/Acetaminophen (By mouth), Abdominal Pain (ED) Activity Restrictions/Additional Instructions: Return for any new or worsening symptoms. Follow-up with your primary care provider within 3 days. Take the pain medication as needed for pain. Coding Level of Care Code ED Guide Foreign Tour for Chg Fwd Exam Comprehensive
[2020-09-12 11:46] LABS: Add Urine Microscopic? NO
[2020-09-12 12:16] LABS: Specific Gravity, Urine 1.005 (1.005-1.030); Urine Appearance Clear (CLEAR); Urine Color Straw (Yellow); pH Urine 5 (5-7)
[2020-09-12 12:17] LABS: Bilirubin Urine Neg (Negative); Blood Urine Neg (Negative); Glucose Urine UA Norm (Normal); Ketones Urine Negative (Negative); Leukocyte Esterase Urine Negative (Negative); Nitrate Urine Negative (Negative); Protein Urine Neg (Negative); Urobilinogen Urine Norm (Negative)
[2020-09-12 12:26] LABS: Basophils % 0.4 %; Eosinophils # 0.1 10^3/uL (0.0-0.8); Eosinophils % 1.6 %; Hematocrit 41.7 % (42.0-52.0); Hemoglobin 13.6 g/dL (11.7-16.6); Lymphocytes # 1.7 10^3/uL (0.8-4.8); Lymphocytes % 18.8 %; Mean Corpuscular HGB Conc 32.6 g/dL (30.0-36.0); Mean Corpuscular Hemoglobin 30.2 pg (28.0-34.0); Mean Corpuscular Volume 92.7 fL (80-94); Monocytes # 0.5 10^3/uL (0.2-0.9); Monocytes % 5.3 %; Neutrophils % 73.1 %; Nucleated Red Blood Cells % 0 %; Platelet Count 205 10^3/cmm (130-400); Red Cell Distribution Width 14.6 % (12.1-15.1); White Blood Count 8.9 10^3/uL (4.0-10.0)
[2020-09-12 12:39] LABS: D Dimer 1.73 ug/mIFEU (0-0.59)
[2020-09-12 12:46] LABS: Alanine Aminotransferase 28 U/L (0-41); Albumin Level 4.2 g/dL (3.5-5.2); Alkaline Phosphatase 51 IU/L (40-130); Aspartate Amino Transferase 21 U/L (0-40); Blood Urea Nitrogen 8 mg/dL (8-23); C Reactive Protein 13.1 mg/L (0.0-4.9); Calcium 9.2 mg/dL (8.5-10.5); Carbon Dioxide 26 mmol/L (22-29); Chloride 97 mmol/L (98-107); Creatine Phosphokinase 58 U/L (39-308); Globulin 2.8 g/dL (1.3-4.6); Glomerular Filtration Rate 166.9 mL/min (90-130); Glucose 141 mg/dL (65-115); Osmolality Calculated 277 mOsm/kg (285-295); Sodium 133 mmol/L (136-145); Total Bilirubin 0.4 mg/dL (0.15-1.2)
[2020-09-12 12:50] LABS: Anion Gap 14.5 (5-19)
--- NOTE | 2020-09-12 12:50 | CTR_ITS ---
PROCEDURE INFORMATION: Exam: CT Angiography Chest With Contrast Exam date and time: 09/12/2020 1:29 PM Age: 65 years old Clinical indication: Abdominal pain; Right; Chest wall pain; Prior surgery; Surgery date: 6+ months; Surgery type: Port, multiple abd; Patient HX: HX of stage 4 colon CA - C/O R flank/r pleuritic cp w cough; Additional info: Right lower chest pain, pleuritic chest pain, high pretest TECHNIQUE: Imaging protocol: Computed tomographic angiography of the chest with intravenous contrast. 3D rendering (Not supervised by radiologist): MIP and/or 3D reconstructed images were created by the technologist. Radiation optimization: All CT scans at this facility use at least one of these dose optimization techniques: automated exposure control; mA and/or kV adjustment per patient size (includes targeted exams where dose is matched to clinical indication); or iterative reconstruction. Contrast material: OMNI 350; Contrast volume: 95 ml; Contrast route: INTRAVENOUS (IV); COMPARISON: No relevant prior studies available. RADIATION DOSE METRICS: Total DLP (mGy-cm): 2512.21 FINDINGS: Pulmonary arteries: Normal. No pulmonary emboli. Aorta: Unremarkable. No aortic aneurysm. No aortic dissection. Lungs: There is a 0.5 cm nodule in the right middle lobe on series 2, image 272. There is a calcified granuloma in the right lower lobe of the lung. There is probable atelectasis/scar in the lungs. No significant lung consolidation. Pleural space: Unremarkable. No pneumothorax. No pleural effusion. Heart: Unremarkable. No cardiomegaly. No pericardial effusion. Lymph nodes: Unremarkable. No enlarged lymph nodes. Bones/joints: Degenerative change is identified in the spine. There is no evidence for acute fracture or malalignment. Soft tissues: Unremarkable. IMPRESSION: There are no acute concerning abnormalities. There is a nodule in the right middle lobe of the lung.For patients at low risk (minimal or absent history of smoking and of other known risk factors), no routine follow-up is indicated. For patients at high risk (history of smoking or of other known risk factors), consider optional CT Chest at 12 months. (Reference: Verna) References: Verna Syed et al. Guidelines for Management of Incidental Pulmonary Nodules Detected on CT Images: From the Fleischner Society 2017. Radiology. 2017;284(1):228-243. PROCEDURE INFORMATION: Exam: CT Abdomen And Pelvis With Contrast Exam date and time: 09/12/2020 1:29 PM Age: 65 years old Clinical indication: Abdominal pain; Right; Chest wall pain; Prior surgery; Surgery date: 6+ months; Surgery type: Port, multiple abd; Patient HX: HX of stage 4 colon CA - C/O R flank/r pleuritic cp w cough; Additional info: Right lower chest pain, pleuritic chest pain, high pretest TECHNIQUE: Imaging protocol: Computed tomography of the abdomen and pelvis with intravenous contrast. Radiation optimization: All CT scans at this facility use at least one of these dose optimization techniques: automated exposure control; mA and/or kV adjustment per patient size (includes targeted exams where dose is matched to clinical indication); or iterative reconstruction. Contrast material: OMNI 350; Contrast volume: 95 ml; Contrast route: INTRAVENOUS (IV); COMPARISON: No relevant prior studies available. RADIATION DOSE METRICS: Total DLP (mGy-cm): 2512.21 FINDINGS: Liver: Findings consistent with fatty infiltration of the liver are identified. No liver mass. Gallbladder and bile ducts: Normal. No calcified stones. No ductal dilation. Pancreas: Normal. No ductal dilation. Spleen: Normal. No splenomegaly. Adrenal glands: Normal. No mass. Kidneys and ureters: Normal. No hydronephrosis. Stomach and bowel: There has been a right hemicolectomy. No bowel obstruction or wall thickening. Appendix: No evidence of appendicitis. Intraperitoneal space: Unremarkable. No free air. No significant fluid collection. Vasculature: Unremarkable. No abdominal aortic aneurysm. Lymph nodes: Unremarkable. No enlarged lymph nodes. Urinary bladder: Unremarkable as visualized. Reproductive: Unremarkable as visualized. Bones/joints: Unremarkable. No acute fracture. Soft tissues: Unremarkable. CT/CT angio chest w abd pel w con IMPRESSION: There are no acute concerning abnormalities. Radiation Dose CTDIVOL = (mGy): DLP = 2512.21~2512.21 (mGy-cm)
[2020-09-12 12:51] LABS: Potassium 4.5 mmol/L (3.5-5.1)
[2020-09-12 13:16] LABS: Lipase 40 U/L (13-60)
[2020-09-12] MEDS: iohexol 350 mg/mL 100 mL Btl IV (13:43)
[2020-09-12 13:46] LABS: Lactate (Lactic Acid level) 1.9 mmol/L (0.5-2.2)
[2020-09-12] MEDS: ondansetron 2 mg/ML SDV 2 mL 4 MG IVP (14:17)
[2020-09-12] MEDS: morphine 4 mg/mL SDV 1 mL IVP (14:17)
== END 2020-09-12 15:20 | disposition home or self-care (01) ==
PROVIDERS: Emergency Provider Family Medicine; PCP Student in an Organized Health Care Education/Training Program
DX: R10.9 Unspecified abdominal pain (principal); Z79.84 Long term (current) use of oral hypoglycemic drugs; I11.0 Hypertensive heart disease with heart failure; I50.9 Heart failure, unspecified; Z85.038 Personal history of other malignant neoplasm of large intestine; J44.9 Chronic obstructive pulmonary disease, unspecified; E11.40 Type 2 diabetes mellitus with diabetic neuropathy, unspecified; Z87.891 Personal history of nicotine dependence; Z79.899 Other long term (current) drug therapy
CPT/HCPCS: 12345; 71275; 74177; 80053; 81003; 82550; 83605; 83690; 85025; 85378; 86140; 96374; 96375; 99283; 99284; J2270; J2405; Q9967

== ENCOUNTER 2020-09-27 11:53 | Emergency (ER) | payer MEDICARE, SELFPAY ==
[2020-09-27] VITALS (7 sets, daily range): BP systolic 113–142; BP diastolic 75–85; PULSE 70–75; RESP 14–16; TEMP 36.4–37.3; O2SAT 93–98; BMI 35.3
--- NOTE | 2020-09-27 13:37 | USCV_ITS ---
Santos Escalera Age: 65 Gender: M : 1955 Exam Date: 09/27/2020 14:05 Ordering Phys: Harris Simon DO Technologist: Jacquelyn Hills [place] [facility] [place]: + covid, LLE hot/swelling/tender to touch HISTORY: Lower extremity swelling. Lower extremity pain. PROCEDURES: Venous duplex imaging was performed in only the left lower extremity. The following venous structures were evaluated: common femoral vein, profunda vein, proximal portion of the greater saphenous vein, superficial femoral vein, and the popliteal vein. In addition, the posterior tibial veins were evaluated. In addition, the posterior tibial and peroneal trunk were evaluated. FINDINGS: Evidence of acute occlusive deep vein thrombosis in the distal left femoral vein with abnormal flow dynamics. DVT extends into the popliteal and tibioperoneal trunk. No DVT proximal CFV. CONCLUSIONS Acute DVT left distal SFV through the tibioperoneal trunk. Dr. Cathy Farrell DO (Electronically Signed) Final Date: 27 September 2020 15:06 S
--- NOTE | 2020-09-27 13:48 | W.ED.EXTPRO ---
HPI - Extremity Problem General: Chief complaint: Infusion Kenny Stated complaint: COVID+, LLE HOT/SWELLING/TENDER TO TOUCH Time Seen by Provider: 09/27/20 13:29 History of Present Illness: HPI Narrative: 65-year-old male who comes in today complaining of left leg pain and swelling is getting progressively worse over the weekend. 5 days ago he was tested positive for Covid. In addition to that he has colon cancer is currently undergoing chemotherapy he was supposed to receive a round of chemo today but was not able to get therapy because of the leg pain and instead presented here. He denies any chest pain or shortness of breath. MD Complaint: extremity pain and extremity swelling Onset (ago): day(s) Pain Consistency: constant Location: left and lower extremity Quality: aching Radiation: none Relieving factors: immobilization Exacerbating factors: weight bearing, walking and exertion Associated symptoms: Deny arthralgias, chest pain, fever(s), myalgias, rash or short of breath Review of Systems Const: Denies: fever(s) ENMT: Denies: throat pain, ear or mastoid pain, nasal discharge or nasal congestion Card: Denies: chest pain Resp: Denies: dyspnea, productive cough or non-productive cough GI: Denies: abdominal pain, nausea, vomiting, hematemesis, coffee ground emesis, diarrhea, constipation, bloating, hematochezia or melena : Denies: flank pain, dysuria, urinary frequency or urinary urgency Skin/Breast: Denies: rash PFSH ED PFSH: Medical History CHF (congestive heart failure) Colon cancer COPD (chronic obstructive pulmonary disease) Diabetes Hypertension Insomnia Neuropathy GENIE (obstructive sleep apnea) Social History Smoking and tobacco status: former smoker Alcohol intake: never Physical Exam Const: COMMON NORMALS: no acute distress GENERAL APPEARANCE: cooperative and comfortable ORIENTATION/CONSCIOUSNESS: Yes awake, Yes oriented to person, Yes oriented to place and Yes oriented to time HENMT: COMMON NORMALS: normocephalic, atraumatic and hearing grossly normal bilaterally HEAD & SCALP: normocephalic and atraumatic Neck/C-Spine: COMMON NORMALS: no JVD Resp: COMMON NORMALS: normal respiratory effort, No retractions, No use of accessory muscles and clear to auscultation bilaterally AUSCULTATION: clear to auscultation bilaterally Cardio: COMMON NORMALS: no JVD, regular rate, regular rhythm and No murmurs present (Cardio) RATE: regular rate RHYTHM: regular rhythm GI: COMMON NORMALS: Soft to palpation and No hepatosplenomegaly present AUSCULTATION: Yes normoactive bowel sounds PALPATION: Yes Soft to palpation, No Tenderness to palpation present (GI), No Guarding due to palpation present (GI) and Yes No hepatosplenomegaly present Extremity: NARRATIVE EXTREMITY EXAM: Swelling and extreme tenderness of the left lower leg positive Homans test. Neuro: SENSORIUM/ORIENTATION: Yes oriented to person, Yes oriented to place and Yes oriented to time Skin: COMMON NORMALS: no rashes or lesions noted GENERAL SKIN EXAM: no rashes or lesions noted Course Vital Signs: Vital signs: Vital Signs Temperature 97.5 F L 09/27/20 17:37 Pulse Rate 70 09/27/20 17:37 Respiratory Rate 16 09/27/20 17:37 Blood Pressure 125/75 09/27/20 17:37 Pulse Oximetry 98 09/27/20 17:37 MDM - Extremity (Nontraumatic) MDM Narrative: Medical decision making narrative: Patient he does have a left lower leg DVT we will go ahead and give him Lovenox start him on Eliquis. In addition to that he is 5 days out from being tested positive for Covid. We will go ahead and give him albumin of the map infusion. I discussed this with him at length reviewed the risks and benefits he wishes to proceed he signed the consent we have called pharmacy and placed the order for the infusion. Discharge Plan Discharge Patient Disposition: Home Clinical Impression: Deep vein thrombosis of lower extremity, COVID-19 Condition: Stable Prescriptions: New Eliquis DVT-PE Treat 30D Start 5 mg (74 tabs) tablets,dose pack See Rx Instructions .ROUTE .COMPLEX Qty: 74 RF: 0 No Action ondansetron HCl 8 mg tablet 8 mg PO Q12H PRN (Reason: Nausea) 30 Days Qty: 60 RF: 2 Compazine 10 mg tablet 10 mg PO Q6H PRN (Reason: Nausea) Qty: 60 RF: 2 albuterol sulfate [Ventolin HFA] 90 mcg/actuation HFA aerosol inhaler 2 puff INHALATION Q6H PRN (Reason: Shortness Of Breath) RF: 0 metformin 500 mg tablet 500 mg PO BID@,18 RF: 0 lisinopril 20 mg tablet 20 mg PO DAILY@0600 RF: 0 gabapentin 300 mg capsule 300 mg PO TID@06,,18 RF: 0 furosemide [Lasix] 20 mg tablet 20 mg PO DAILY PRN (Reason: Edema) RF: 0 metoprolol succinate 25 mg tablet extended release 24 hr 25 mg PO DAILY@0600 RF: 0 zolpidem 10 mg tablet 10 mg PO BEDTIME@1800 RF: 0 hydrocodone-acetaminophen [[place]] 5-325 mg tablet 1 tab PO Q8H PRN (Reason: pain) Qty: 20 RF: 0 Discharge Orders: Discharge ED (Routine); Ordered 09/27/20 Ordered By: Harris Simon Referrals: Nan Sellers MD [Primary Care Provider] - Discharge Diet: Usual diet Discharge Activity: Increase activity as tolerated Coding Level of Care Code ED Action Installer for Chg Fwd Exam Comprehensive Monoclonal Antibody Treatments Inclusion/Exclusion Criteria weight >/= 40 kg and + direct Sars-Cov-2 test less than 7-10 days ago age >/= 65, receiving immunosuppressive therapy and has immunosuppressive disease not requiring hospitalization, not requiring oxygen (if not chronically on oxygen) and no increase oxygen requirement (if chronically on oxygen) Patient education patient/family/caregiver received/reviewed fact sheet, Emergency Use Authorization/unapproved drug status discussed with patient/family/caregiver, alternatives to this treatment discussed with patient/family/caregiver, risks and benefits of medication reviewed with patient/family/caregiver, patient/family/caregiver given opportunity for questions, which were answered and patient consents to receiving Monoclonal Antibody Treatment Plan for treatment Meets criteria for Monoclonal Antibody infusion Monoclonal antibody information given and Ordering Monoclonal Antibody infusion for today
[2020-09-27] MEDS: enoxaparin 120 mg/0.8 mL Syringe SUBCUT (15:30)
--- NOTE | 2020-09-28 16:17 | DCPLANNER ---
Addendum entered by Eva Vera 10/07/20 15:45: Patient returned case investigator phone, he stated that he was doing good. Patient stated that he was still a little weak, but he is feeling good. Patient also stated that he has not been admitted to the hospital. Addendum entered by Eva Vera 10/07/20 14:24: hostel manager called to check on patient on day 10 after receiving the BAM infusion. hostel manager was unable to speak with patient at this time, a voicemail was left for patient to return case investigator phone call. Addendum entered by Eva Vera 09/30/20 11:54: Called to check on patient, unable to speak with patient, a voicemail was left for patient to return case investigator phone call. Addendum entered by Eva Vera 09/28/20 16:19: Patient has a follow up appointment scheduled for Sunday, October 06, [address] at 9:[address] Sellers. Original Note: hostel manager had message that patient received the BAM infusion. hostel manager called to check on patient after he received the infusion. Spoke with patient, he stated that he took the infusion well. Before the infusion patient stated that he had a fever, and he hurt all over, and he had a small cough. After the infusion, patient stated that he had the dirreaha really bad, he felt wore out, still has a cough, no fever. Patient stated that he can not really tell a difference at this time.
== END 2020-09-27 17:38 | disposition home or self-care (01) ==
PROVIDERS: Emergency Provider Family Medicine; PCP Family Medicine
DX: I82.412 Acute embolism and thrombosis of left femoral vein (principal); U07.1 COVID-19; I11.0 Hypertensive heart disease with heart failure; I50.9 Heart failure, unspecified; Z85.038 Personal history of other malignant neoplasm of large intestine; J44.9 Chronic obstructive pulmonary disease, unspecified; E11.40 Type 2 diabetes mellitus with diabetic neuropathy, unspecified; Z87.891 Personal history of nicotine dependence
CPT/HCPCS: 12345; 93971; 96365; 99281; 99283; J1650; J7050

== ENCOUNTER 2020-11-10 20:00 | Outpatient (CLI) | payer MEDICARE, SELFPAY | END 2020-11-10 20:01 | disposition home or self-care (01) | LOC: SLEEP 11-11 09:42 | PROVIDERS: PCP Family Medicine; Visit Provider Family Medicine | DX: G47.33 Obstructive sleep apnea (adult) (pediatric) (principal) | CPT/HCPCS: 95811 ==

== ENCOUNTER → 2020-11-12 08:59 | Outpatient (BNVA) | payer MEDICARE, SELFPAY | PROVIDERS: PCP Family Medicine; Referring Provider Family Medicine; Visit Provider Family Medicine | DX: I82.409 Acute embolism and thrombosis of unspecified deep veins of unspecified lower extremity (principal) | CPT/HCPCS: 85610 ==

== ENCOUNTER → 2020-11-29 11:37 | Outpatient (BNVA) | payer MEDICARE, SELFPAY | PROVIDERS: PCP Family Medicine; Visit Provider Family Medicine | DX: I82.593 Chronic embolism and thrombosis of other specified deep vein of lower extremity, bilateral (principal); C18.9 Malignant neoplasm of colon, unspecified; G47.01 Insomnia due to medical condition; I50.22 Chronic systolic (congestive) heart failure; G89.29 Other chronic pain; Z51.81 Encounter for therapeutic drug level monitoring; Z79.01 Long term (current) use of anticoagulants | CPT/HCPCS: 85610 ==

== ENCOUNTER → 2020-12-29 10:06 | Outpatient (BNVA) | payer MEDICARE, SELFPAY | PROVIDERS: PCP Family Medicine; Visit Provider Family Medicine | DX: I82.593 Chronic embolism and thrombosis of other specified deep vein of lower extremity, bilateral (principal); Z51.81 Encounter for therapeutic drug level monitoring; Z79.01 Long term (current) use of anticoagulants | CPT/HCPCS: 85610 ==

== ENCOUNTER → 2021-01-20 10:00 | Outpatient (BNVA) | payer MEDICARE, SELFPAY | PROVIDERS: PCP Family Medicine; Visit Provider Family Medicine | DX: I82.593 Chronic embolism and thrombosis of other specified deep vein of lower extremity, bilateral (principal); R05 Cough; C18.9 Malignant neoplasm of colon, unspecified; Z51.81 Encounter for therapeutic drug level monitoring; Z79.01 Long term (current) use of anticoagulants | CPT/HCPCS: 85610 ==

== ENCOUNTER 2021-01-25 19:23 | Inpatient (IN) | payer MEDICARE, SELFPAY ==
[2021-01-25 19:27] VITALS: BP 100/64; PULSE 123; RESP 26; TEMP 36.6; O2SAT 90; BMI 37.8
--- NOTE | 2021-01-25 19:37 | XR_ITS ---
WS: [id number] Portable AP upright chest, 01/25/2021 Clinical Data: sob Comparison: None. Findings: No nodules, masses or effusions are seen. The heart is normal. The pulmonary vascularity is not increased. No pneumothorax is seen. There is minimal opacity over the surface of left diaphragm which could represent atelectasis or mild pneumonia. There is a right infusion catheter ending in th e superior vena cava. The aortic arch and descending aorta shows mild tortuosity. XR/XR chest 1V portable [id number] Impression: Minimal opacity over surface of left diaphragm which could represent atelectasi s or minimal pneumonia.
--- NOTE | 2021-01-25 19:37 | ECG_ITS ---
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
--- NOTE | 2021-01-25 19:40 | ED_ITS ---
HPI - Chest Pain General: Chief Complaint: Chest Pain Stated Complaint: CHEST PAIN Time Seen by Provider: 01/25/21 19:30 History of Present Illness: HPI narrative: 65-year-old male presents with shortness of breath. Patient reports that he just feels like he cannot catch any air. Patient reports has been going on since around 2 PM this afternoon. He has a history of COPD or reactive airway and has not used his inhaler in about a week. He reports that the shortness of breath gets significantly worse if he lays down. He does state he has got some leg swelling. He has a history of colon cancer. He also has a history of blood clots. Patient denies any significant chest pain. No reports of fevers chills or cough. Associated symptoms: Reports dyspnea; Deny abdominal pain, fever(s), nausea or vomiting Review of Systems Const: Denies: fever(s) or chills ENMT: Denies: throat pain Card: Reports: swelling of feet/ankles, dyspnea on exertion and orthopnea; Denies: chest pain Resp: Reports: dyspnea; Denies: productive cough or non-productive cough GI: Denies: abdominal pain, nausea or vomiting : Denies: flank pain Musc: Denies: neck pain Skin/Breast: Denies: rash Neuro: Denies: headache(s) Psych: Denies: anxiety PFSH ED PFSH: Medical History Allergy CHF (congestive heart failure) Colon cancer COPD (chronic obstructive pulmonary disease) Diabetes DVT (deep venous thrombosis) Hypertension Insomnia Neuropathy GENIE (obstructive sleep apnea) Surgical History H/O hemorrhoidectomy Social History Smoking and tobacco status: former smoker Alcohol intake: never Physical Exam Const: COMMON NORMALS: no acute distress Resp: COMMON NORMALS: normal respiratory effort AUSCULTATION: diminished lung sounds Cardio: COMMON NORMALS: regular rhythm RATE: tachycardic RHYTHM: regular rhythm GI: COMMON NORMALS: Soft to palpation INSPECTION: Yes central obesity PALPATION: Yes Soft to palpation and No Tenderness to palpation present (GI) Psych: COMMON NORMALS: mental status grossly normal, normal affect and speech normal SPEECH: Yes normal speech Skin: COMMON NORMALS: no rashes or lesions noted GENERAL SKIN EXAM: no rashes or lesions noted Course Vital Signs: Vital signs: Vital Signs Temperature 97.9 F 01/25/21 19:27 Pulse Rate 108 H 01/25/21 21:02 Respiratory Rate 18 01/25/21 21:02 Blood Pressure 101/55 01/25/21 21:02 Pulse Oximetry 91 01/25/21 21:02 MDM - Chest Pain MDM Narrative: Medical decision making narrative: Patient with elevated white count, low oxygen. This tachycardia at arrival improved with oxygen as did his low oxygen. Patient has what looks like left upper lobe infiltrates. Patient has had [employer] Covid vaccine. Discussed with the hospitalist, we will start him on Rocephin and doxycycline. I will admit him due to his oxygen need. Patient stable upon admission Lab Data: Attestation: I reviewed the patient's lab results. Labs: Lab Results 01/25/21 01/25/21 01/25/21 Range/Units 19:53 19:53 19:53 WBC 17.9 H (4.0-10.0) 10^3/ uL RBC 4.95 (4.1-5.3) 10^6/u L Hgb 14.4 (11.7-16.6) g/dL Hct 45.3 (42.0-52.0) % MCV 91.5 (80-94) fL MCH 29.1 (28.0-34.0) pg MCHC 31.8 (30.0-36.0) g/dL RDW 15.7 H (12.1-15.1) % Plt Count 207 (130-400) 10^3/c mm MPV 8.8 (7.4-10.4) fL Neut % (Auto) 85.8 % Lymph % (Auto) 4.5 % Josephine % (Auto) 8.1 % Eos % (Auto) 0.7 % Baso % (Auto) 0.4 % Neut # (Auto) 15.35 H (1.8-7.7) 10^3/u L Lymph # (Auto) 0.8 (0.8-4.8) 10^3/u L Josephine # (Auto) 1.4 H (0.2-0.9) 10^3/u L Eos # (Auto) 0.1 (0.0-0.8) 10^3/u L Baso # (Auto) 0.1 (0.0-0.1) 10^3/u L Nucleated RBC % (a uto) 0 % Nucleated RBCs # 0.0 /100WBC D-Dimer 1.60 H (0-0.59) ug/mIFE U Sodium (136-145) mmol/L Potassium (3.5-5.1) mmol/L Chloride (98-107) mmol/L Carbon Dioxide (22-29) mmol/L Anion Gap (5-19) BUN (8-23) mg/dL Creatinine (0.7-1.2) mg/dL GFR Calculation (90-130) mL/min Glucose (65-115) mg/dL Calculated Osmolal ity (285-295) mOsm/k g Calcium (8.5-10.5) mg/dL Magnesium 1.7 (1.7-2.3) mg/dL NT-Pro-B Natriuret Pep 58 (0-125) pg/mL 01/25/ Range/Units 19:53 WBC (4.0-10.0) 10^3/ uL RBC (4.1-5.3) 10^6/u L Hgb (11.7-16.6) g/dL Hct (42.0-52.0) % MCV (80-94) fL MCH (28.0-34.0) pg MCHC (30.0-36.0) g/dL RDW (12.1-15.1) % Plt Count (130-400) 10^3/c mm MPV (7.4-10.4) fL Neut % (Auto) % Lymph % (Auto) % Josephine % (Auto) % Eos % (Auto) % Baso % (Auto) % Neut # (Auto) (1.8-7.7) 10^3/u L Lymph # (Auto) (0.8-4.8) 10^3/u L Josephine # (Auto) (0.2-0.9) 10^3/u L Eos # (Auto) (0.0-0.8) 10^3/u L Baso # (Auto) (0.0-0.1) 10^3/u L Nucleated RBC % (a uto) % Nucleated RBCs # /100WBC D-Dimer (0-0.59) ug/mIFE U Sodium 134 L (136-145) mmol/L Potassium 4.2 (3.5-5.1) mmol/L Chloride 97 L (98-107) mmol/L Carbon Dioxide 25 (22-29) mmol/L Anion Gap 16.2 (5-19) BUN 15 (8-23) mg/dL Creatinine 0.7 (0.7-1.2) mg/dL GFR Calculation 113.2 (90-130) mL/min Glucose 151 H (65-115) mg/dL Calculated Osmolal ity 282 L (285-295) mOsm/k g Calcium 9.1 (8.5-10.5) mg/dL Magnesium (1.7-2.3) mg/dL NT-Pro-B Natriuret Pep (0-125) pg/mL Imaging Data^: CTA Chest: Radiologist's impression: CT/CT angio chest PE protcl [id number] IMPRESSION: 1. No pulmonary embolism. 2. Fatty infiltration of the liver. 3. There is moderate emphysema. 4. Scattered left upper lower lobe airspace opacities which are nonspecific but can be seen in pneumonia and COVID-19. 5. Stable 6 mm right upper lobe pulmonary nodule. For patients at low risk (minimal or absent history of smoking and of other known risk factors), recommend CT Chest at 6-12 months, then consider CT Chest at 18-24 months. For patients at high risk (history of smoking or of other known risk factors), recommend CT Chest at 6-12 months, then CT Chest at 18-24 months. CXR: Attestation: I personally reviewed and interpreted this imaging study as follows: My impression: No acute findings EKG Data^: EKG 1: Attestation: I personally reviewed and interpreted this EKG as follows: EKG interpretation date: 01/25/21 EKG interpretation time: 19:35 Interpretation: Sinus tach, ventricular rate 116, MT 131, no acute ST elevation or findings Discharge Plan Discharge Patient Disposition: Admitted As Inpatient Clinical Impression: Pneumonia Qualifiers: Pneumonia type: due to unspecified organism Laterality: left Lung location: upper lobe of lung Qualified Code(s): J18.9 - Pneumonia, unspecified organism Condition: Stable Coding Level of Care Code ED Senior Software Engineer for Chg Fwd Exam Detailed
[2021-01-25 19:55] VITALS: BP 112/64; PULSE 111; RESP 16; O2SAT 95
[2021-01-25 20:05] LABS: Basophils # 0.1 10^3/uL (0.0-0.1); Basophils % 0.4 %; Eosinophils # 0.1 10^3/uL (0.0-0.8); Eosinophils % 0.7 %; Hematocrit 45.3 % (42.0-52.0); Hemoglobin 14.4 g/dL (11.7-16.6); Lymphocytes # 0.8 10^3/uL (0.8-4.8); Lymphocytes % 4.5 %; Mean Corpuscular HGB Conc 31.8 g/dL (30.0-36.0); Mean Corpuscular Hemoglobin 29.1 pg (28.0-34.0); Mean Corpuscular Volume 91.5 fL (80-94); Mean Platelet Volume 8.8 fL (7.4-10.4); Monocytes # 1.4 10^3/uL (0.2-0.9); Monocytes % 8.1 %; Neutrophils # 15.35 10^3/uL (1.8-7.7); Neutrophils % 85.8 %; Nucleated Red Blood Cells % 0 %; Platelet Count 207 10^3/cmm (130-400); Red Blood Count 4.95 10^6/uL (4.1-5.3); Red Cell Distribution Width 15.7 % (12.1-15.1); White Blood Count 17.9 10^3/uL (4.0-10.0)
[2021-01-25 20:37] LABS: Magnesium 1.7 mg/dL (1.7-2.3); NT Pro B Type Natriuretic Pept 58 pg/mL (0-125)
[2021-01-25 21:02] VITALS: BP 101/55; PULSE 108; RESP 18; O2SAT 91
[2021-01-25 21:10] LABS: Anion Gap 16.2 (5-19); Blood Urea Nitrogen 15 mg/dL (8-23); Calcium 9.1 mg/dL (8.5-10.5); Carbon Dioxide 25 mmol/L (22-29); Chloride 97 mmol/L (98-107); Glomerular Filtration Rate 113.2 mL/min (90-130); Glucose 151 mg/dL (65-115); Osmolality Calculated 282 mOsm/kg (285-295); Potassium 4.2 mmol/L (3.5-5.1); Sodium 134 mmol/L (136-145)
--- NOTE | 2021-01-25 21:22 | CTR_ITS ---
PROCEDURE INFORMATION: Exam: CTA Chest With Contrast Exam date and time: 01/25/2021 9:25 PM Age: 65 years old Clinical indication: Abnormal findings; Abnormal diagnostic tests; Elevated d-dimer; Shortness of breath; Prior surgery; Surgery type: Port; Additional info: Elevated dimer, SOB, HX of clots TECHNIQUE: Imaging protocol: Computed tomographic angiography of the chest with contrast. 3D rendering (Not supervised by radiologist): MIP and/or 3D reconstructed images were created by the technologist. Radiation optimization: All CT scans at this facility use at least one of these dose optimization techniques: automated exposure control; mA and/or kV adjustment per patient size (includes targeted exams where dose is matched to clinical indication); or iterative reconstruction. Contrast material: VISI 320; Contrast volume: 69 ml; Contrast route: INTRAVENOUS (IV); COMPARISON: CT angio chest w abd pel w con 09/12/2020 1:30 PM RADIATION DOSE METRICS: Total DLP (mGy-cm): 1621.47 FINDINGS: Pulmonary arteries: No pulmonary embolism. Aorta: No aortic dissection or aneurysm. Lungs: There is moderate emphysema. There are scattered airspace opacities in the left upper lower lobes. Stable 6 mm right upper lobe pulmonary nodule. Pleural spaces: Unremarkable. No pneumothorax. No pleural effusion. Heart: Unremarkable. No cardiomegaly. No pericardial effusion. Lymph nodes: Unremarkable. No enlarged lymph nodes. Liver: There is fatty infiltration of the liver. Bones/joints: Unremarkable. No acute fracture. Soft tissues: Unremarkable. CT/CT angio chest PE protcl [id number] IMPRESSION: 1. No pulmonary embolism. 2. Fatty infiltration of the liver. 3. There is moderate emphysema. 4. Scattered left upper lower lobe airspace opacities which are nonspecific but can be seen in pneumonia and COVID-19. 5. Stable 6 mm right upper lobe pulmonary nodule. For patients at low risk (minimal or absent history of smoking and of other known risk factors), recommend CT Chest at 6-12 months, then consider CT Chest at 18-24 months. For patients at high risk (history of smoking or of other known risk factors), recommend CT Chest at 6-12 months, then CT Chest at 18-24 months. (Reference: Verna) REFERENCES: Verna Syed et al. Guidelines for Management of Incidental Pulmonary Nodules Detected on CT Images: From the Fleischner Society 2017. Radiology. 2017;284(1):228-243. Radiation Dose CTDIVOL = (mGy): DLP = 1621.47 (mGy-cm)
[2021-01-25] MEDS: iohexol 350 mg/mL 100 mL Btl IV (21:40)
[2021-01-25] MEDS: iodixanol 320 mg/mL 100mL Btl IV (21:44)
[2021-01-25 22:00] VITALS: PULSE 74
[2021-01-25] MEDS: cefTRIAXone 1,000 MG in sodium chloride 0.9% (plus) 50 ML 100 MG IV (23:18)
[2021-01-25] MEDS: doxycycline 100 mg Tablet PO (23:19)
[2021-01-25 23:20] VITALS: BP 106/62; PULSE 97; RESP 16; O2SAT 95
--- NOTE | 2021-01-25 23:41 | P.HP_ITS ---
Providers/Chief Complaint Admitting Physician: Tj Ledbetter Primary Care Provider: Nan Sellers MD Chief Complaint: CHEST PAIN History of Present Illness Santos Escalera is a 65 year old male with past medical history of stage IV colon cancer, DVT, diabetes, CHF and possible COPD who presents to emergency room with complaints of shortness of breath and productive cough with yellow mucus which started yesterday. He describes his symptoms as moderate in intensity but worsening. Denies associated fever or chills. However he reports that he might be developing sweats right now. He reports left-sided back pain. No nausea or vomiting. No diarrhea. Reports similar pneumonia several years ago. Chest x- ray today reveals left-sided infiltrate consistent with pneumonia. Review of Systems General: Reports: 10 or more systems reviewed and unremarkable except in HPI and below Medications/Allergies Home Medications Medication Instructions Recorded Confirmed Last Taken Type albuterol sulfate 90 mcg/actuation 2 puff INHALATION Q6H PRN 06/08/20 01/25/21 01/21/21 History aerosol inhaler prochlorperazine maleate 10 mg 10 mg PO Q6H PRN #60 tab 09/07/20 01/25/21 09/11/20 Rx tablet furosemide [Lasix] 20 mg PO DAILY PRN 09/12/20 01/25/21 01/25/21 History gabapentin 300 mg PO TID@07,,09/12/20 01/25/21 01/25/21 History albuterol sulfate 2.5 mg INHALATION Q4H PRN #180 ml 10/06/20 01/25/21 Unknown Rx miscellaneous medical supply See Rx Instructions MISCELLANEOUS 10/06/20 01/25/21 Unknown Rx .COMPLEX #1 ea ondansetron HCl 8 mg tablet 8 mg PO Q12H PRN 30 Days #60 tab 01/14/21 01/25/21 Unknown Rx dextromethorphan polistirex 30 10 ml PO Q12H PRN #89 ml 01/20/21 01/25/21 01/25/21 Rx mg/5 mL oral susp ext.release 12hr guaifenesin 1,200 mg tablet, 1,200 mg PO Q12H #60 tab 01/20/21 01/25/21 01/25/21 Rx extended release 12 hr hydrocodone 5 mg-acetaminophen 325 1 tab PO Q8H PRN 30 Days #60 tab 01/20/21 01/25/21 Unknown Rx mg tablet warfarin 4 mg tablet 8 mg PO DAILY 14 Days #28 tab 01/20/21 01/25/21 01/25/21 Rx lisinopril 20 mg PO DAILY@0700 01/25/21 01/25/21 01/25/21 History magnesium 1 tab PO DAILY@0700 01/25/21 01/25/21 01/25/21 History metformin 500 mg PO BID@0700,1900 01/25/21 01/25/21 01/25/21 History metoprolol succinate 25 mg PO DAILY@0700 01/25/21 01/25/21 01/25/21 History montelukast 10 mg PO DAILY@0700 01/25/21 01/25/21 01/25/21 History trifluridine-tipiracil [Lonsurf] See Rx Instructions .ROUTE .COMPLEX 01/25/21 01/25/21 Unknown History zolpidem 10 mg PO BEDTIME@1900 01/25/21 01/25/21 01/24/21 History Allergies Allergy/AdvReac Type Severity Reaction Status Date / Time aspirin Allergy ALGY-Hives Verified 01/20/21 09:32 PFSH Acute PFSH: Medical History Allergy CHF (congestive heart failure) Colon cancer COPD (chronic obstructive pulmonary disease) Diabetes DVT (deep venous thrombosis) Hypertension Insomnia Neuropathy GENIE (obstructive sleep apnea) Surgical History H/O hemorrhoidectomy Social History Smoking and tobacco status: former smoker Alcohol intake: never Vitals/I&O/Wt Last Vital Signs Temp 97.9 F 01/25/21 19:27 Pulse 97 01/25/21 23:20 Resp 16 01/25/21 23:20 BP 106/62 01/25/21 23:20 Pulse Ox 95 01/25/21 23:20 Weight last 48 hrs Weight 133.81 kg Physical Exam Narrative: EXAM NARRATIVE: The patient is awake alert oriented. No acute distress. Mood and affect are appropriate. Responses are adequate. Skin is warm and dry. Moist extremities Eyes PERRL, extraocular muscles are intact Normal speech Neck supple. No JVD Lungs left-sided coarse breath sounds and wheezes are present. Right side is clear. Heart S1, S2, regular Abdomen soft, obese, nontender, bowel sounds are present colon resection abdominal wall scar is present. Extremities no edema cyanosis or calf tenderness bilaterally Neuro examination is nonfocal Data : 01/25/21 19:53 01/25/21 19:53 Other Labs: Laboratory Results WBC 17.9 10^3/uL (4.0-10.0) H 01/25/21 19:53 RBC 4.95 10^6/uL (4.1-5.3) 01/25/21 19:53 Hgb 14.4 g/dL (11.7-16.6) 01/25/21 19:53 Hct 45.3 % (42.0-52.0) 01/25/21 19:53 MCV 91.5 fL (80-94) 01/25/21 19:53 MCH 29.1 pg (28.0-34.0) 01/25/21 19:53 MCHC 31.8 g/dL (30.0-36.0) 01/25/21 19:53 RDW 15.7 % (12.1-15.1) H 01/25/21 19:53 Plt Count 207 10^3/cmm (130-400) 01/25/21 19:53 MPV 8.8 fL (7.4-10.4) 01/25/21 19:53 Neut % (Auto) 85.8 % 01/25/21 19:53 Lymph % (Auto) 4.5 % 01/25/21 19:53 Beauregard % (Auto) 8.1 % 01/25/21 19:53 Eos % (Auto) 0.7 % 01/25/21 19:53 Baso % (Auto) 0.4 % 01/25/21 19:53 Neut # (Auto) 15.35 10^3/uL (1.8-7.7) H 01/25/21 19:53 Lymph # (Auto) 0.8 10^3/uL (0.8-4.8) 01/25/21 19:53 Beauregard # (Auto) 1.4 10^3/uL (0.2-0.9) H 01/25/21 19:53 Eos # (Auto) 0.1 10^3/uL (0.0-0.8) 01/25/21 19:53 Baso # (Auto) 0.1 10^3/uL (0.0-0.1) 01/25/21 19:53 Nucleated RBC % (auto) 0 % 01/25/21 19:53 Nucleated RBCs # 0.0 /100WBC 01/25/21 19:53 D-Dimer 1.60 ug/mIFEU (0-0.59) H 01/25/21 19:53 Sodium 134 mmol/L (136-145) L 01/25/21 19:53 Potassium 4.2 mmol/L (3.5-5.1) 01/25/21 19:53 Chloride 97 mmol/L (98-107) L 01/25/21 19:53 Carbon Dioxide 25 mmol/L (22-29) 01/25/21 19:53 Anion Gap 16.2 (5-19) 01/25/21 19:53 BUN 15 mg/dL (8-23) 01/25/21 19:53 Creatinine 0.7 mg/dL (0.7-1.2) 01/25/21 19:53 GFR Calculation 113.2 mL/min (90-130) 01/25/21 19:53 Glucose 151 mg/dL (65-115) H 01/25/21 19:53 Calculated Osmolality 282 mOsm/kg (285-295) L 01/25/21 19:53 Calcium 9.1 mg/dL (8.5-10.5) 01/25/21 19:53 Magnesium 1.7 mg/dL (1.7-2.3) 01/25/21 19:53 NT-Pro-B Natriuret Pep 58 pg/mL (0-125) 01/25/21 19:53 Impressions Chest CTA 01/25/21 21:22 IMPRESSION: 1. No pulmonary embolism. 2. Fatty infiltration of the liver. 3. There is moderate emphysema. 4. Scattered left upper lower lobe airspace opacities which are nonspecific but can be seen in pneumonia and COVID-19. 5. Stable 6 mm right upper lobe pulmonary nodule. For patients at low risk (minimal or absent history of smoking and of other known risk factors), recommend CT Chest at 6-12 months, then consider CT Chest at 18-24 months. For patients at high risk (history of smoking or of other known risk factors), recommend CT Chest at 6-12 months, then CT Chest at 18-24 months. (Reference: Verna) REFERENCES: Verna Syed et al. Guidelines for Management of Incidental Pulmonary Nodules Detected on CT Images: From the Fleischner Society 2017. Radiology. 2017;284(1):228-243. Radiation Dose CTDIVOL = (mGy): DLP = 1621.47 (mGy-cm) A&P Additional A&P Information Santos Escalera is a 65 year old male with past medical history of stage IV colon cancer, DVT, diabetes, CHF and possible COPD who presents to emergency room with complaints of shortness of breath and productive cough with yellow mucus w hich started yesterday. The patient is found to have left-sided pneumonia. Community-acquired pneumonia. We will start Rocephin and doxycycline. Left upper lobe nodule. Will need close follow-up with outpatient CT. Please remind the patient at discharge. Hyponatremia probably secondary to pneumonia. Monitor. Diabetes. Insulin sliding scale History of DVT. We will resume his warfarin and monitor his INR. The plan of care was discussed with the patient. He verbalized understanding an d agreement. Attestations Medical Necessity Statement*: Based on my assessment of patient's condition he will require more than 2 midnights in the hospital. Coding Level of Care Code Acute Educational Programming Director for [facility]
[2021-01-25 23:48] VITALS: BP 106/62; PULSE 92; RESP 17; O2SAT 98
[2021-01-26] VITALS (14 sets, daily range): BP systolic 92–143; BP diastolic 51–78; PULSE 59–101; RESP 15–19; TEMP 36.7–37.3; O2SAT 90–98
[2021-01-26] MEDS: HYDROcodone-acetaminophen 5-325 mg Tablet 1 TAB PO ×2 (01:51→10:52)
[2021-01-26 06:13] LABS: Basophils # 0.1 10^3/uL (0.0-0.1); Basophils % 0.3 %; Eosinophils % 0.1 %; Hematocrit 43.2 % (42.0-52.0); Hemoglobin 13.6 g/dL (11.7-16.6); Lymphocytes # 1.3 10^3/uL (0.8-4.8); Lymphocytes % 5.6 %; Mean Corpuscular HGB Conc 31.5 g/dL (30.0-36.0); Mean Corpuscular Hemoglobin 29.6 pg (28.0-34.0); Mean Corpuscular Volume 94.1 fL (80-94); Mean Platelet Volume 9.5 fL (7.4-10.4); Monocytes # 2.8 10^3/uL (0.2-0.9); Monocytes % 11.9 %; Neutrophils # 19.11 10^3/uL (1.8-7.7); Neutrophils % 80.6 %; Nucleated Red Blood Cells % 0 %; Platelet Count 203 10^3/cmm (130-400); Red Blood Count 4.59 10^6/uL (4.1-5.3); Red Cell Distribution Width 16.1 % (12.1-15.1); White Blood Count 23.7 10^3/uL (4.0-10.0)
[2021-01-26] MEDS: gabapentin 300 mg Capsule PO ×3 (06:19→18:51)
[2021-01-26] MEDS: montelukast sodium 10 mg Tablet PO (06:19)
[2021-01-26] MEDS: lisinopril 20 mg Tablet PO (06:19)
[2021-01-26 06:23] LABS: INR 1.54 (0.8-1.2)
[2021-01-26 06:48] LABS: Procalcitonin 3.65 ng/mL (0-0.5)
[2021-01-26 07:01] LABS: Albumin Level 3.9 g/dL (3.5-5.2); Anion Gap 16.6 (5-19); Blood Urea Nitrogen 13 mg/dL (8-23); Calcium 8.8 mg/dL (8.5-10.5); Carbon Dioxide 24 mmol/L (22-29); Chloride 96 mmol/L (98-107); Glomerular Filtration Rate 135.2 mL/min (90-130); Glucose 159 mg/dL (65-115); Magnesium 1.8 mg/dL (1.7-2.3); Phosphorus 3.4 mg/dL (2.5-4.5); Potassium 4.6 mmol/L (3.5-5.1); Sodium 132 mmol/L (136-145)
--- NOTE | 2021-01-26 10:24 | PC.CHAP ---
Pastoral Care Encounter/Spiritual Assessment Type of Contact [] Declined webmethods consultant visit [] Patient/Family/Request visit [] Outpatient visit [] Follow-up visit [] Physician referral [] Code/Alert [xx] Routine visit [] Staff referral [] Actively dying [] Patient sleeping [] Family support [] [] Out of room [] Palliative care [] [] Receiving care in room [] Pre-surgical visit [] Trauma [] Long length of stay [] ICU visit [] Other: Relational/Emotional Strength [] Patient feels connected with others/family/visitors/staff [] Distress [] Loneliness/isolation [] Abandonment Spirituality of Patient [] Person of Briana [] Attends Pentecostal of their Briana [] Believes in Prayer [] Reads Bible or Mormon materials [] There are Spiritual issues to be addressed Medical Services Assistant Interventions [x] Prayer [x] Active listening [x] Non-anxious presence [x] Spiritual/emotional support [] Crisis/trauma care [] Spiritual counseling [] Bereavement support [] Provided bereavement packet [] Provided Bible/devotional materials [] Provided toy/stuffed animal, coloring book to patient or family member [] Provided Communion [] Anointing/[place] [] Salvation [x] Completed spiritual assessment [] Other: Impact on Illness or Injury [] Angry [] Fearful [] Anxious [] Often cries [] Exhaustion [] Unable to work [] Unable to attend zoroastrian [] Unable to walk/stand [] Unable to read [] Unable to drive [] Unable to eat/drink [] Unable to sleep [] Unable to be with family [] Patient intubated [] Other: Summary Time spent with patient 15 min
[2021-01-26] MEDS: doxycycline 100 mg Tablet PO ×2 (10:51→18:52)
--- NOTE | 2021-01-26 15:42 | PM.PN ---
Subjective Subjective: Interval history: Admitted last night. H&P and labs noted. Examination patient lying comfortably in bed with at bedside. He states his cough is little better though is complaining of pain in his abdominal muscles with each cough. He is on 2 L nasal cannula saturating 93%. He states he is feeling little better. He is having occasional rigors. Vitals/I&O/Wt Last Vital Signs Temp 98.5 F 01/26/21 12:00 Pulse 80 01/26/21 12:00 Resp 18 01/26/21 12:00 BP 92/51 01/26/21 12:00 Pulse Ox 93 01/26/21 12:00 01/26/21 01/26/21 01/26/21 06:59 14:59 22:59 Intake Total 170 / 170 600 / 600 Balance 170 / 170 600 / 600 Weight last 48 hrs Weight 133.81 kg Physical Exam Narrative: EXAM NARRATIVE: The patient is awake alert oriented. No acute distress. Mood and affect are appropriate. Responses are adequate. Skin is warm and dry. Moist extremities Eyes PERRL, extraocular muscles are intact Normal speech Neck supple. No JVD Lungs no respiratory breath sounds bilaterally, left-sided coarse breath sounds and wheezes are present. Right side is clear. Heart S1, S2, regular, no murmurs Abdomen soft, obese, nontender, bowel sounds are present colon resection abdominal wall scar is present. Extremities no edema cyanosis or calf tenderness bilaterally Neuro examination is nonfocal Data : 01/26/21 04:30 01/26/21 04:30 A&P Assessment and plan (1) Hypoxia: Status: Acute (2) Pneumonia: Status: Acute Qualifiers: Laterality: left Lung location: upper lobe of lung Pneumonia type: due to unspecified organism Qualified Code(s): J18.9 - Pneumonia, unspecified organism (3) GENIE (obstructive sleep apnea): Status: Acute (4) DVT, bilateral lower limbs: Status: Acute Qualifiers: Affected thrombotic vein of extremity: other lower extremity vein Chronicity: chronic Qualified Code(s): I82.593 - 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, bilateral (5) Anticoagulation goal of INR 2 to 3: Status: Acute (6) Hypertension: Status: Acute Qualifiers: Hypertension type: essential hypertension Qualified Code(s): I10 - Essential (primary) hypertension (7) Diabetes: Status: Acute Qualifiers: Diabetes mellitus type: type 2 Diabetes mellitus intermediate designer insulin use: without intermediate designer use Diabetes mellitus complication status: with other specified complication Qualified Code(s): E11.69 - Type 2 diabetes mellitus with other specified complication (8) Colon cancer: Status: Acute Qualifiers: Colon location: unspecified part of colon Qualified Code(s): C18.9 - Malignant neoplasm of colon, unspecified Additional A&P Information Santos Escalera is a 65 year old male with past medical history of stage IV colon cancer, DVT, diabetes, CHF and possible COPD who presents to emergency room with complaints of shortness of breath and productive cough with yellow mucus which started yesterday. The patient is found to have left-sided pneumonia. Community-acquired pneumonia: Given the immunocompromise status with chemotherapy and recurrent visual hospitalization we will broaden the coverage of antibiotics with vancomycin and Zosyn. Stop ceftriaxone. Continue doxycycline. Check blood culture, urine culture, urinalysis, urine Legionella, sputum culture. Will de-escalate antibiotics as per the culture results. Start patient on DuoNebs and budesonide. Questionable history of CHF in the past. Patient is on Lasix as needed. Check echocardiogram, proBNP. CPAP at night because of history of obstructive sleep apnea. Oxygen supplementation keeping saturation over 92%. History of colon cancer: Follow-ups with oncology department at [facility]. Post colectomy, history of metastasis to liver. On chemotherapy. Plan to transition over to oral experimental therapy. Diabetes: Stop oral hypoglycemics. Continue with insulin sliding scale. Carb consistent cardiac diet. History of DVT/PE: Goal INR 2-3. Takes Coumadin 8 mg daily at home. Subtherapeutic INR. Increase the dose of Coumadin to 9 mg daily. Hypertension: Goal blood pressure less than 140/90 of Hg. Blood pressure is borderline for now. Takes metoprolol 25 and lisinopril 20 mg at home. For now hold off on lisinopril. We will continue to monitor and reintroduce medications accordingly. Full code. Coumadin also help with DVT prophylaxis. Cardiac diabetic diet. Attestations Medical Necessity Statement*: Requires further hospitalization for management of hypoxia because of pneumonia in immunocompromised patient on chemotherapy for colon cancer Time Spent in Patient Care: Greater than 35 minutes (>than 50% of time spent in counselling and/or direct pt care on unit). Coding Level of Care Code Acute Rehab Nursing Tech for Chg Fwd Diagnoses Hypoxia R09.02 Pneumonia J18.9 Laterality: left Lung location: upper lobe of lung Pneumonia type: due to unspecified organism GENIE (obstructive sleep apnea) G47.33 DVT, bilateral lower limbs I82.593 Affected thrombotic vein of extremity: other lower extremity vein Chronicity: chronic Anticoagulation goal of INR 2 to 3 Z51.81; Z79.01 Hypertension I10 Hypertension type: essential hypertension Diabetes E11.69 Diabetes mellitus type: type 2 Diabetes mellitus intermediate insulin use: without intermediate designer use Diabetes mellitus complication status: with other specified complication Colon cancer C18.9 Colon location: unspecified part of colon
[2021-01-26 16:10] LABS: Thyroid Stimulating Hormone 0.29 uIU/mL (0.27-4.20)
[2021-01-26] MEDS: warfarin 4 mg Tablet 8 MG PO (16:13)
[2021-01-26] MEDS: piperacillin-tazobactam 3.375 GM in sodium chloride 0.9% (plus) 50 ML IV (16:14)
[2021-01-26 16:28] LABS: Iron 24 ug/dL (59-158); NT Pro B Type Natriuretic Pept 305 pg/mL (0-125); Percent Saturation 7.3 % (20-50); Total Iron Binding Capacity 327 mcg/dl; Unsaturated Iron Binding 303 ug/dL (112-347)
[2021-01-26] MEDS: guaiFENesin 600 mg Tablet 1200 MG PO (18:51)
[2021-01-26] MEDS: zolpidem 5 mg Tablet 10 MG PO (18:52)
[2021-01-26] MEDS: budesonide 0.5 mg/2 mL Neb INHALATION (20:29)
[2021-01-26] MEDS: ipratropium-albuterol 3 mL Neb INHALATION (20:29)
[2021-01-26] MEDS: benzonatate 100 mg Capsule PO (21:57)
[2021-01-26] MEDS: FUROsemide 20 mg Tablet PO (22:44)
[2021-01-27] VITALS (20 sets, daily range): BP systolic 111–127; BP diastolic 71–80; PULSE 74–100; RESP 15–20; TEMP 36.8–37.4; O2SAT 91–97
[2021-01-27 00:34] LABS: Bilirubin Urine Neg (Negative); Blood Urine Neg (Negative); Glucose Urine UA Norm (Normal); Ketones Urine Negative (Negative); Nitrate Urine Negative (Negative); Protein Urine Neg (Negative); Urine Appearance Clear (CLEAR); Urine Color Yellow (Yellow); pH Urine 5 (5-7)
[2021-01-27 00:35] LABS: Add Urine Culture? No; Leukocyte Esterase Urine Negative (Negative); RBC Urine RARE /hpf (0-2); Squamous Epithelial Cell Urine RARE /hpf (0-5); Urobilinogen Urine Norm (Negative); WBC Urine RARE /hpf (0-5)
[2021-01-27 00:43] LABS: Potassium, Radom Urine 14 mmol/L; Urine Random Sodium 26 mmol/L
[2021-01-27 00:48] LABS: Urine Random Chloride 11 mmol/L
[2021-01-27] MEDS: piperacillin-tazobactam 3.375 GM in sodium chloride 0.9% (plus) 50 ML IV ×3 (01:18→18:06)
[2021-01-27] MEDS: ipratropium-albuterol 3 mL Neb INHALATION ×4 (03:01→20:54)
--- NOTE | 2021-01-27 05:00 | USCV_ITS ---
Santos Escalera Age: 65 Gender: M : 1955 Exam Date: 01/27/2021 05:55 Ordering Phys: Regino Pino MD Technologist: Kelsey Ordaz Exam Location: [facility] Indication: CHF BP: 119 / 79 HR: 85 Rhythm: Sinus Technical Quality: Very technically difficult study MEASUREMENTS (Male / Female) Normal Values 2D ECHO LV Diastolic Diameter PLAX 4.5 cm 4.2 - 5.9 / 3.9 - 5.3 cm LV Systolic Diameter PLAX 3.1 cm LV Chamber Size 4.6 cm IVS Diastolic Thickness 1.8 cm 0.6 - 1.0 / 0.6 - 0.9 cm IVS Systolic Thickness 2.3 cm LVPW Diastolic Thickness 1.6 cm 0.6 - 1.0 / 0.6 - 0.9 cm LVPW Systolic Thickness 2.4 cm RV Chamber Size 2.9 cm LVOT Diameter 2.1 cm LV Ejection Fraction 2D Teich 60.4 % LA Diameter 3.2 cm LA Width 2.6 cm LA Height 4.5 cm RA Width 3.5 cm RA Height 3.7 cm M-MODE LV Diastolic Diameter MM 5.2 cm 4.2 - 5.9 / 3.9 - 5.3 cm LV Systolic Diameter MM 3.0 cm LV Ejection Fraction MM Teich 71.4 % IVS Diastolic Thickness MM 1.0 cm 0.6 - 1.0 / 0.6 - 0.9 cm IVS Systolic Thickness MM 1.3 cm LVPW Diastolic Thickness MM 1.2 cm 0.6 - 1.0 / 0.6 - 0.9 cm LVPW Systolic Thickness MM 1.3 cm MV E Point Septal Separation 1.8 cm DOPPLER AV Peak Velocity 134.0 cm/s LVOT Peak Velocity 106.0 cm/s AV Area Cont Eq vti 3.0 cm squared AV Area Cont Eq pk 2.6 cm squared MV Area PHT 6.3 cm squared Mitral E to A Ratio 0.8 MV E' Velocity 43.5 cm/s Mitral E to MV E' Ratio 6.0 Mitral E to LV E' Lateral Ratio 6.4 Mitral E to LV E' Septal Ratio 5.8 TR Peak Velocity 167.3 cm/s TR Peak Gradient 11.2 mmHg TV Peak E Velocity 53.0 cm/s Right Atrial Pressure 8.0 mmHg Pulmonary Artery Systolic Pressu 19.2 mmHg FINDINGS Left Ventricle Mildly dilated left ventricular cavity size. Milldy decreased left ventricular ejection fraction is estimated at 50%. Possible septal hypokinesis. Grade I diastolic dysfunction (abnormal relaxation filling pattern), normal to mildly elevated filling pressures. Abnormal septal motion. Right Ventricle Right ventricle not well visualized. Right Atrium Right atrium not well visualized. Left Atrium Left atrium not well visualized. Mitral Valve Mitral valve not well visualized. Aortic Valve Aortic valve not well visualized. Tricuspid Valve Tricuspid valve not well visualized. Pulmonic Valve Pulmonic valve not well visualized. Pericardium No pericardial effusion. Aorta Aorta not well visualized. CONCLUSIONS 1. This is a technically difficult study inspite of ultrasound enhancing agent (Optison). 2. Mildly dilated left ventricular cavity size. Milldy decreased left ventricular ejection fraction is estimated at 50%. Possible septal hypokinesis. Grade I diastolic dysfunction (abnormal relaxation filling pattern), normal to mildly elevated filling pressures. Abnormal septal motion. 3. No prior similar studies to compare. Rain Conrad MD (Electronically Signed) Final Date: 28 January 2021 13:25 S
[2021-01-27 05:07] LABS: Basophils # 0.1 10^3/uL (0.0-0.1); Basophils % 0.3 %; Eosinophils # 0.1 10^3/uL (0.0-0.8); Eosinophils % 0.6 %; Hematocrit 40.8 % (42.0-52.0); Hemoglobin 12.1 g/dL (11.7-16.6); Lymphocytes # 1.7 10^3/uL (0.8-4.8); Lymphocytes % 10.7 %; Mean Corpuscular HGB Conc 29.7 g/dL (30.0-36.0); Mean Corpuscular Hemoglobin 29.2 pg (28.0-34.0); Mean Corpuscular Volume 98.3 fL (80-94); Mean Platelet Volume 9.1 fL (7.4-10.4); Monocytes # 1.7 10^3/uL (0.2-0.9); Neutrophils # 11.86 10^3/uL (1.8-7.7); Neutrophils % 76.8 %; Nucleated Red Blood Cells % 0 %; Platelet Count 155 10^3/cmm (130-400); Red Blood Count 4.15 10^6/uL (4.1-5.3); Red Cell Distribution Width 16.2 % (12.1-15.1); White Blood Count 15.4 10^3/uL (4.0-10.0)
[2021-01-27 05:26] LABS: Alanine Aminotransferase 19 U/L (0-41); Albumin Level 3.3 g/dL (3.5-5.2); Alkaline Phosphatase 43 IU/L (40-130); Anion Gap 11.3 (5-19); Aspartate Amino Transferase 16 U/L (0-40); Blood Urea Nitrogen 10 mg/dL (8-23); Calcium 7.9 mg/dL (8.5-10.5); Carbon Dioxide 26 mmol/L (22-29); Chloride 96 mmol/L (98-107); Globulin 3.1 g/dL (1.3-4.6); Glomerular Filtration Rate 166.9 mL/min (90-130); Glucose 156 mg/dL (65-115); Osmolality Calculated 270 mOsm/kg (285-295); Potassium 4.3 mmol/L (3.5-5.1); Sodium 129 mmol/L (136-145); Total Bilirubin 0.6 mg/dL (0.15-1.2); Total Protein 6.4 g/dL (6.6-8.7)
[2021-01-27] MEDS: metoprolol succinate ER (24 HR) 25 mg Tablet PO (06:19)
[2021-01-27] MEDS: gabapentin 300 mg Capsule PO ×3 (06:19→18:06)
[2021-01-27] MEDS: montelukast sodium 10 mg Tablet PO (06:19)
[2021-01-27] MEDS: acetaminophen 325 mg Tablet 650 MG PO ×2 (06:25→20:34)
[2021-01-27] MEDS: benzonatate 100 mg Capsule PO ×3 (08:15→20:34)
[2021-01-27] MEDS: doxycycline 100 mg Tablet PO ×2 (08:15→18:06)
[2021-01-27] MEDS: guaiFENesin 600 mg Tablet 1200 MG PO ×2 (08:15→18:06)
[2021-01-27] MEDS: HYDROcodone-acetaminophen 5-325 mg Tablet 1 TAB PO (08:15)
[2021-01-27] MEDS: budesonide 0.5 mg/2 mL Neb INHALATION ×2 (08:18→20:54)
[2021-01-27] MEDS: warfarin 4 mg Tablet 8 MG PO (14:06)
[2021-01-27] MEDS: FUROsemide 10 mg/mL SDV 4mL 40 MG IVP (14:14)
--- NOTE | 2021-01-27 16:32 | P.PN_ITS ---
Subjective Subjective: Interval history: No acute events overnight. On examination patient is lying comfortably in bed. He is on 2 L nasal cannula saturating 93%. States he is feeling better than yesterday. Is able to ambulate without any issue [id number] from the restroom. Still complaining of left upper quadrant abdominal pain on cough. Patient states hospice has been arranged for him at home. We did have a long discussion with son at bedside regarding hospice, goals of care with hospice. Patient states for now he would want everything to be done to keep him alive and would want to continue full treatment to get better. He states he will continue to think about hospice then decide accordingly. Vitals/I&O/Wt Last Vital Signs Temp 98.4 F 01/27/21 15:52 Pulse 79 01/27/21 15:52 Resp 18 01/27/21 15:52 BP 112/71 01/27/21 15:52 Pulse Ox 93 01/27/21 15:52 01/27/21 01/27/21 01/27/21 06:59 14:59 22:59 Intake Total 550 / 1560 1220 / 1220 50 / 1270 Output Total 1300 / 1300 Balance -750 / 260 1220 / 1220 50 / 1270 Weight last 48 hrs Weight 133.81 kg Physical Exam Narrative: EXAM NARRATIVE: The patient is awake alert oriented. No acute distress. Mood and affect are appropriate. Responses are adequate. Skin is warm and dry. Moist extremities Eyes PERRL, extraocular muscles are intact Normal speech Neck supple. No JVD Lungs no respiratory breath sounds bilaterally, left-sided coarse breath sounds and wheezes are present. Right side is clear. Heart S1, S2, regular, no murmurs Abdomen soft, obese, nontender, bowel sounds are present colon resection abdominal wall scar is present. Extremities no edema cyanosis or calf tenderness bilaterally Neuro examination is nonfocal Data : 01/27/21 04:36 01/27/21 04:36 Micro: Microbiology 01/27/21 00:01 Legionella Urinary Antigen - Final Urine,Voided 01/26/21 18:50 Blood Culture - Preliminary Blood SPECIMEN COLLECTED 01/26/21 18:45 Blood Culture - Preliminary Blood SPECIMEN COLLECTED A&P Assessment and plan (1) Hypoxia: Status: Acute (2) Pneumonia: Status: Acute Qualifiers: Laterality: left Lung location: upper lobe of lung Pneumonia type: due to unspecified organism Qualified Code(s): J18.9 - Pneumonia, unspecified organism (3) GENIE (obstructive sleep apnea): Status: Acute (4) DVT, bilateral lower limbs: Status: Acute Qualifiers: Affected thrombotic vein of extremity: other lower extremity vein Chronicity: chronic Qualified Code(s): I82.593 - 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, bilateral (5) Anticoagulation goal of INR 2 to 3: Status: Acute (6) Hypertension: Status: Acute Qualifiers: Hypertension type: essential hypertension Qualified Code(s): I10 - Essential (primary) hypertension (7) Diabetes: Status: Acute Qualifiers: Diabetes mellitus type: type 2 Diabetes mellitus [facility] insulin use: without [facility] use Diabetes mellitus complication status: with other specified complication Qualified Code(s): E11.69 - Type 2 diabetes mellitus with other specified complication (8) Colon cancer: Status: Acute Qualifiers: Colon location: unspecified part of colon Qualified Code(s): C18.9 - Malignant neoplasm of colon, unspecified Additional A&P Information Santos Escalera is a 65 year old male with past medical history of stage IV colon cancer, DVT, diabetes, CHF and possible COPD who presents to emergency room with complaints of shortness of breath and productive cough with yellow mucus which started yesterday. The patient is found to have left-sided pneumonia. Shortness of breath: Could be a combination of bronchitis leading to COPD exacerbation versus community-acquired pneumonia: Given the immunocompromise status with chemotherapy and recurrent visual hospitalization antibiotic coverage will broaden. CT chest done yesterday did not reveal proper consolidation but read as possible pneumonitis. For now continue with vancomycin and Zosyn. Procalcitonin elevated. Urine Legionella negative. Sputum culture, MRSA swab results awaited. Continue with DuoNebs and budesonide. Echocardiogram results still awaited. Lasix 40 mg IV once. Tessalon Perles. Peculiar as needed for pain. Patient complaining of left upper quadrant abdominal pain with cough. Given his history of colon cancer we will do CT chest with contrast for further evaluation. We will request records from his primary oncologist office to see what chemotherapy patient is on and when did patient have scheduled last Neupogen for further clarity. It is important to rule out that patient does not have pneumo nitis secondary to ongoing chemotherapy. Oxygen supplementation keeping saturation over 92%. History of colon cancer: Follow-ups with oncology department at [facility]. Post colectomy, history of metastasis to liver. On chemotherapy. Plan to transition over to oral experimental therapy. Diabetes: Stop oral hypoglycemics. Continue with insulin sliding scale. Carb consistent cardiac diet. History of DVT/PE: Goal INR 2-3. Takes Coumadin 8 mg daily at home. Subtherapeutic INR. Continue Coumadin 9 mg daily. Check INR in 2 days. Hypertension: Goal blood pressure less than 140/90 of Hg. Blood pressure is borderline for now. Takes metoprolol 25 and lisinopril 20 mg at home. For now hold off on lisinopril. We will continue to monitor and reintroduce medications accordingly. Full code. Coumadin also help with DVT prophylaxis. Cardiac diabetic diet. Attestations Medical Necessity Statement*: Requires further hospitalization for management of community-acquired pneumonia Time Spent in Patient Care: Greater than 35 minutes (>than 50% of time spent in counselling and/or direct pt care on unit) . Coding Level of Care Code Acute Pearler for [facility] Fwd Diagnoses Hypoxia R09.02 Pneumonia J18.9 Laterality: left Lung location: upper lobe of lung Pneumonia type: due to unspecified organism GENIE (obstructive sleep apnea) G47.33 DVT, bilateral lower limbs I82.593 Affected thrombotic vein of extremity: other lower extremity vein Chronicity: chronic Anticoagulation goal of INR 2 to 3 Z51.81; Z79.01 Hypertension I10 Hypertension type: essential hypertension Diabetes E11.69 Diabetes mellitus type: type 2 Diabetes mellitus [facility] insulin use: without terminal make up operator use Diabetes mellitus complication status: with other specified complication Colon cancer C18.9 Colon location: unspecified part of colon
--- NOTE | 2021-01-27 16:38 | CTR_ITS ---
PROCEDURE INFORMATION: Exam: CT Abdomen And Pelvis With Contrast Exam date and time: 01/27/2021 5:24 PM Age: 65 years old Clinical indication: Constipation; Prior surgery; Surgery type: Colon, appy, back; Additional info: Abdominal pain, colon cancer TECHNIQUE: Imaging protocol: Computed tomography of the abdomen and pelvis with contrast. Radiation optimization: All CT scans at this facility use at least one of these dose optimization techniques: automated exposure control; mA and/or kV adjustment per patient size (includes targeted exams where dose is matched to clinical indication); or iterative reconstruction. Contrast material: OMNI 300; Contrast volume: 95 ml; Contrast route: INTRAVENOUS (IV); COMPARISON: CT angio chest w abd pel w con 09/12/2020 1:30 PM RADIATION DOSE METRICS: Total DLP (mGy-cm): 1981.38 FINDINGS: Lungs: Nonspecific bibasilar consolidation left greater than right is present, consistent with atelectasis, edema, or pneumonia. Calcified granulomas are noted in the lungs. No discrete soft tissue density pulmonary nodule. Pleural spaces: There is a trace left pleural effusion and mild right pleural thickening. Mediastinal space: A small hiatal hernia is present. Liver: There is a diffuse decrease in hepatic parenchymal density, consistent with fatty infiltration. Several small hypodensities are noted in the liver and are too small to characterize. Gallbladder and bile ducts: Normal. No calcified stones. No ductal dilation. Pancreas: Normal. No ductal dilation. Spleen: Normal. No splenomegaly. Adrenal glands: The adrenal glands are normal. Kidneys and ureters: There is mild left hydronephrosis and hydroureter with mild left perinephric fat stranding without obstructing calculus concerning for recent passage of a stone or urinary tract infection new since the prior exam. There is punctate right nephrolithiasis. No right hydronephrosis. There is trace right perinephric fat stranding much less than the left kidney. Stomach and bowel: There is excessive colonic stool content. Postoperative changes of a right hemicolectomy are noted. There is no evidence of colitis/diverticulitis. There is no evidence of intestinal perforation or obstruction. Appendix: There has been an appendectomy. Intraperitoneal space: There are several areas of ill-defined/hazy density infiltrating the mesenteric fat concerning for omental carcinomatosis that are larger than on the prior exam. For example the abnormality on the right series 2, image 39 today measures 2.1 x 3.8 cm where previously it measured 1.6 x 2.1 cm. A nodule just right of midline on image 52 today measures 1.9 x 3.0 cm were previously it measured 1.4 x 2.5 cm. There is no ascites. Additional hazy and nodular opacities deep to the abdominal wall compatible probable carcinomatosis have increased in size and number such is image 59 and posterior to the right lobe of the liver on image 43.. Vasculature: The aorta demonstrates mild atherosclerotic calcification. Lymph nodes: Unremarkable.No enlarged lymph nodes. Urinary bladder: Unremarkable as visualized. Reproductive: Unremarkable as visualized. Bones/joints: There is a transitional lumbosacral junction with degenerative changes and vacuum disc at L5-S1 and degenerative changes at the transitional lumbarized S1 and the remaining sacrum. No acute bony abnormality. Soft tissues: There are bilateral fat filled inguinal hernias. CT/CT abdomen pelvis w con* [id number] IMPRESSION: 1. There is mild left hydronephrosis and hydroureter with mild left perinephric fat stranding without obstructing calculus concerning for recent passage of a stone or urinary tract infection new since the prior exam. 2. Progressing omental carcinomatosis. Larger and more numerous nodules are noted. No ascites. 3. There is constipation but no bowel thickening, colitis or enteritis is identified. 4. Nonspecific bibasilar consolidation left greater than right is present, consistent with atelectasis, edema, or pneumonia. Radiation Dose CTDIVOL = (mGy): DLP = 1981.38 (mGy-cm)
[2021-01-27] MEDS: perflutren protein-a microsphr 0.22 mg/mL SDV 3 mL IV (16:47)
[2021-01-27] MEDS: iohexol 300 mg/mL 100 mL Btl IV (17:44)
[2021-01-27] MEDS: zolpidem 5 mg Tablet 10 MG PO (18:06)
[2021-01-28] VITALS (22 sets, daily range): BP systolic 116–128; BP diastolic 74–79; PULSE 64–88; RESP 14–20; TEMP 36.3–37.1; O2SAT 90–97
[2021-01-28] MEDS: ipratropium-albuterol 3 mL Neb INHALATION ×4 (02:10→20:10)
[2021-01-28] MEDS: piperacillin-tazobactam 3.375 GM in sodium chloride 0.9% (plus) 50 ML IV ×3 (02:14→18:01)
[2021-01-28] MEDS: metoprolol succinate ER (24 HR) 25 mg Tablet PO (06:02)
[2021-01-28] MEDS: gabapentin 300 mg Capsule PO ×3 (06:02→18:02)
[2021-01-28] MEDS: montelukast sodium 10 mg Tablet PO (06:02)
[2021-01-28 06:24] LABS: Basophils % 0.3 %; Eosinophils # 0.3 10^3/uL (0.0-0.8); Eosinophils % 2.7 %; Hematocrit 39.5 % (42.0-52.0); Hemoglobin 12.3 g/dL (11.7-16.6); Lymphocytes # 1.6 10^3/uL (0.8-4.8); Lymphocytes % 14.3 %; Mean Corpuscular HGB Conc 31.1 g/dL (30.0-36.0); Mean Corpuscular Hemoglobin 29.1 pg (28.0-34.0); Mean Corpuscular Volume 93.6 fL (80-94); Mean Platelet Volume 8.8 fL (7.4-10.4); Monocytes # 1.1 10^3/uL (0.2-0.9); Monocytes % 9.6 %; Neutrophils # 7.95 10^3/uL (1.8-7.7); Neutrophils % 72.7 %; Nucleated Red Blood Cells % 0 %; Platelet Count 186 10^3/cmm (130-400); Red Blood Count 4.22 10^6/uL (4.1-5.3); Red Cell Distribution Width 15.9 % (12.1-15.1); White Blood Count 10.9 10^3/uL (4.0-10.0)
[2021-01-28 06:44] LABS: INR 1.64 (0.8-1.2)
[2021-01-28 06:46] LABS: Vancomycin Trough 12.3 ug/mL (10-15)
[2021-01-28 06:55] LABS: Alanine Aminotransferase 19 U/L (0-41); Albumin Level 3.7 g/dL (3.5-5.2); Alkaline Phosphatase 46 IU/L (40-130); Anion Gap 11.1 (5-19); Aspartate Amino Transferase 14 U/L (0-40); Blood Urea Nitrogen 10 mg/dL (8-23); Calcium 8.3 mg/dL (8.5-10.5); Carbon Dioxide 30 mmol/L (22-29); Chloride 98 mmol/L (98-107); Globulin 2.9 g/dL (1.3-4.6); Glomerular Filtration Rate 135.2 mL/min (90-130); Glucose 147 mg/dL (65-115); Osmolality Calculated 282 mOsm/kg (285-295); Potassium 4.1 mmol/L (3.5-5.1); Sodium 135 mmol/L (136-145); Total Bilirubin 0.4 mg/dL (0.15-1.2); Total Protein 6.6 g/dL (6.6-8.7)
[2021-01-28] MEDS: HYDROcodone-acetaminophen 5-325 mg Tablet 1 TAB PO (07:34)
[2021-01-28] MEDS: benzonatate 100 mg Capsule PO ×3 (07:35→20:01)
[2021-01-28] MEDS: guaiFENesin 600 mg Tablet 1200 MG PO ×2 (07:35→18:02)
[2021-01-28] MEDS: doxycycline 100 mg Tablet PO ×2 (07:35→18:02)
[2021-01-28] MEDS: budesonide 0.5 mg/2 mL Neb INHALATION ×2 (08:09→20:10)
--- NOTE | 2021-01-28 10:10 | PC.SOCIAL ---
Pg 2 IMM Explained to pt Pg 2 IMM. No questions voiced. Provided pt a copy. Signed, dated, & timed a copy & placed in chart.
[2021-01-28] MEDS: acetaminophen 325 mg Tablet 650 MG PO (11:12)
[2021-01-28] MEDS: warfarin 5 mg Tablet PO (13:46)
[2021-01-28] MEDS: warfarin 4 mg Tablet PO (13:48)
--- NOTE | 2021-01-28 15:16 | PM.PN ---
Subjective Subjective: Interval history: No acute events overnight. Patient states he is feeling a lot better. Denies any nausea, vomiting, headache. Still complaining of mild pain in the left upper quadrant. Denies any headache. States he is feeling little more energetic than before. Vitals/I&O/Wt Last Vital Signs Temp 97.3 F L 01/28/21 11:09 Pulse 88 01/28/21 14:32 Resp 20 H 01/28/21 14:27 BP 116/74 01/28/21 11:09 Pulse Ox 94 01/28/21 14:27 01/28/21 01/28/21 01/28/21 06:59 14:59 22:59 Intake Total 486.667 / 2110.000 620 / 620 Output Total 425 / 1325 275 / 275 Balance 61.667 / 785.000 345 / 345 Physical Exam Narrative: EXAM NARRATIVE: The patient is awake alert oriented. No acute distress. Mood and affect are appropriate. Responses are adequate. Skin is warm and dry. Moist extremities Eyes PERRL, extraocular muscles are intact Normal speech Neck supple. No JVD Lungs no respiratory breath sounds bilaterally, left-sided coarse breath sounds and wheezes are present. Right side is clear. Heart S1, S2, regular, no murmurs Abdomen soft, obese, nontender, bowel sounds are present colon resection abdominal wall scar is present. Extremities no edema cyanosis or calf tenderness bilaterally Neuro examination is nonfocal Data : 01/28/21 06:13 01/28/21 06:13 Micro: Microbiology 01/27/21 00:01 Urine Culture - Preliminary Urine,Voided 01/26/21 18:50 Blood Culture - Preliminary Blood NEGATIVE TO DATE 01/26/21 18:45 Blood Culture - Preliminary Blood NEGATIVE TO DATE 01/26/21 16:00 Gram Stain - Final Sputum - Expectorated Sputum A&P Assessment and plan (1) Hypoxia: Status: Acute (2) Pneumonia: Status: Acute Qualifiers: Laterality: left Lung location: upper lobe of lung Pneumonia type: due to unspecified organism Qualified Code(s): J18.9 - Pneumonia, unspecified organism (3) GENIE (obstructive sleep apnea): Status: Acute (4) DVT, bilateral lower limbs: Status: Acute Qualifiers: Affected thrombotic vein of extremity: other lower extremity vein Chronicity: chronic Qualified Code(s): I82.593 - 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, bilateral (5) Anticoagulation goal of INR 2 to 3: Status: Acute (6) Hypertension: Status: Acute Qualifiers: Hypertension type: essential hypertension Qualified Code(s): I10 - Essential (primary) hypertension (7) Diabetes: Status: Acute Qualifiers: Diabetes mellitus type: type 2 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 mellitus 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 insulin use: without usp use Diabetes mellitus complication status: with other specified complication Qualified Code(s): E11.69 - Type 2 diabetes mellitus with other specified complication (8) Colon cancer: Status: Acute Qualifiers: Colon location: unspecified part of colon Qualified Code(s): C18.9 - Malignant neoplasm of colon, unspecified Additional A&P Information Santos Escalera is a 65 year old male with past medical history of stage IV colon cancer, DVT, diabetes, CHF and possible COPD who presents to emergency room with complaints of shortness of breath and productive cough with yellow mucus which started yesterday. The patient is found to have left-sided pneumonia. Shortness of breath/hypoxia: Etiology could be multiple. Could be secondary to bronchitis due to COPD exacerbation. Cannot rule out pneumonitis from chemotherapy. CT chest done on admission consistent with possible diffuse pneumonitis. No consolidation. Given the immunocompromise status continue with vancomycin and Zosyn for now. Patient has remained afebrile and WBC has trended down to 10,000 from 25,000 on admission. While we continue to wait for documents from primary's office/oncology office regarding patient's chemotherapy will start patient on Solu-Medrol 40 mg IV once a day for now. Continue with DuoNebs and budesonide. Tessalon Perles. Incentive spirometry [place] as needed for pain. Patient complaining of left upper quadrant abdominal pain with cough. CT abdomen results appreciated consistent with possible left hydronephrosis secondary to recent passage of stone along with omental carcinomatosis. Most likely cause of pain and hydronephrosis is omental carcinomatosis. Continue with [place] 5 every 6 hours as needed. Oxygen supplementation keeping saturation over 92%. History of colon cancer: Follow-ups with oncology department at [facility]. Post colectomy, history of metastasis to liver. On chemotherapy. Plan to transition over to oral experimental therapy. Diabetes: Stop oral hypoglycemics. Continue with insulin sliding scale. Carb consistent cardiac diet. History of DVT/PE: Goal INR 2-3. Takes Coumadin 8 mg daily at home. Subtherapeutic INR. Continue Coumadin 9 mg daily. Check INR in 2 days. Hypertension: Goal blood pressure less than 140/90 mmHg. Blood pressure is borderline for now. Takes metoprolol 25 and lisinopril 20 mg at home. For now hold off on lisinopril. We will continue to monitor and reintroduce medications accordingly. Full code. Coumadin also help with DVT prophylaxis. Cardiac diabetic diet. Attestations Medical Necessity Statement*: Patient requires further hospitalization for management of shortness of breath/hypoxia secondary to pneumonitis along with abdominal pain most likely from omental carcinomatosis Time Spent in Patient Care: Greater than 35 minutes (>than 50% of time spent in counselling and/or direct pt care on unit). 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 [facility] Diagnoses Hypoxia R09.02 Pneumonia J18.9 Laterality: left Lung location: upper lobe of lung Pneumonia type: due to unspecified organism GENIE (obstructive sleep apnea) G47.33 DVT, bilateral lower limbs I82.593 Affected thrombotic vein of extremity: other lower extremity vein Chronicity: chronic Anticoagulation goal of INR 2 to 3 Z51.81; Z79.01 Hypertension I10 Hypertension type: essential hypertension Diabetes E11.69 Diabetes mellitus type: type 2 Diabetes mellitus 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 insulin use: without usp use Diabetes mellitus complication status: with other specified complication Colon cancer C18.9 Colon location: unspecified part of colon
[2021-01-28] MEDS: FUROsemide 10 mg/mL SDV 4mL 40 MG IVP (16:31)
--- NOTE | 2021-01-28 16:31 | PC.RESP ---
Pulmonary Rehab information sent to patient.
[2021-01-28 16:52] LABS: Procalcitonin 2.05 ng/mL (0-0.5)
[2021-01-28] MEDS: zolpidem 5 mg Tablet 10 MG PO (18:02)
[2021-01-28 18:30] LABS: INR 1.53 (0.8-1.2)
[2021-01-29] VITALS (11 sets, daily range): BP systolic 106–156; BP diastolic 67–84; PULSE 65–80; RESP 15–19; TEMP 36.4–36.9; O2SAT 86–96
[2021-01-29] MEDS: piperacillin-tazobactam 3.375 GM in sodium chloride 0.9% (plus) 50 ML IV ×2 (01:38→10:25)
[2021-01-29] MEDS: ipratropium-albuterol 3 mL Neb INHALATION ×2 (03:08→08:12)
[2021-01-29] MEDS: montelukast sodium 10 mg Tablet PO (06:02)
[2021-01-29] MEDS: metoprolol succinate ER (24 HR) 25 mg Tablet PO (06:02)
[2021-01-29] MEDS: gabapentin 300 mg Capsule PO ×2 (06:02→12:14)
[2021-01-29 07:04] LABS: Basophils % 0.3 %; Eosinophils % 0.1 %; Hematocrit 41.3 % (42.0-52.0); Lymphocytes % 9.2 %; Mean Corpuscular HGB Conc 31.5 g/dL (30.0-36.0); Mean Corpuscular Hemoglobin 29.5 pg (28.0-34.0); Mean Corpuscular Volume 93.7 fL (80-94); Mean Platelet Volume 9.2 fL (7.4-10.4); Monocytes # 0.7 10^3/uL (0.2-0.9); Monocytes % 6.4 %; Neutrophils # 8.65 10^3/uL (1.8-7.7); Neutrophils % 83.2 %; Nucleated Red Blood Cells % 0 %; Platelet Count 226 10^3/cmm (130-400); Red Blood Count 4.41 10^6/uL (4.1-5.3); Red Cell Distribution Width 15.2 % (12.1-15.1); White Blood Count 10.4 10^3/uL (4.0-10.0)
[2021-01-29 07:24] LABS: Alanine Aminotransferase 23 U/L (0-41); Albumin Level 3.4 g/dL (3.5-5.2); Alkaline Phosphatase 57 IU/L (40-130); Blood Urea Nitrogen 11 mg/dL (8-23); Calcium 8.9 mg/dL (8.5-10.5); Carbon Dioxide 26 mmol/L (22-29); Chloride 101 mmol/L (98-107); Globulin 3.7 g/dL (1.3-4.6); Glomerular Filtration Rate 166.9 mL/min (90-130); Glucose 204 mg/dL (65-115); Osmolality Calculated 289 mOsm/kg (285-295); Sodium 137 mmol/L (136-145); Total Bilirubin 0.3 mg/dL (0.15-1.2); Total Protein 7.1 g/dL (6.6-8.7)
[2021-01-29 07:28] LABS: Aspartate Amino Transferase 21 U/L (0-40)
[2021-01-29] MEDS: guaiFENesin 600 mg Tablet 1200 MG PO (08:01)
[2021-01-29] MEDS: doxycycline 100 mg Tablet PO (08:01)
[2021-01-29] MEDS: benzonatate 100 mg Capsule PO (08:01)
[2021-01-29] MEDS: budesonide 0.5 mg/2 mL Neb INHALATION (08:12)
--- NOTE | 2021-01-29 12:16 | P.DS_ITS ---
Discharge Providers Date of Admission: 01/25/21 22:52 Date of Discharge: January 29, 2021 Attending Provider at Admission: Tj Ledbetter Attending Provider at Discharge: Regino Pino MD Primary Care Provider: Nan Sellers MD Diagnoses at Discharge Discharge Diagnosis (1) Hypoxia: Status: Acute (2) Pneumonia: Status: Acute Qualifiers: Laterality: left Lung location: upper lobe of lung Pneumonia type: due to unspecified organism Qualified Code(s): J18.9 - Pneumonia, unspecified organism (3) GENIE (obstructive sleep apnea): Status: Acute (4) DVT, bilateral lower limbs: Status: Acute Qualifiers: Affected thrombotic vein of extremity: other lower extremity vein Chronicity: chronic Qualified Code(s): I82.593 - 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, bilateral (5) Anticoagulation goal of INR 2 to 3: Status: Acute (6) Hypertension: Status: Acute Qualifiers: Hypertension type: essential hypertension Qualified Code(s): I10 - Essential (primary) hypertension (7) Diabetes: Status: Acute Qualifiers: Diabetes mellitus type: type 2 Diabetes mellitus detention insulin use: without exterminator helper termite use Diabetes mellitus complication status: with other specified complication Qualified Code(s): E11.69 - Type 2 diabetes mellitus with other specified complication (8) Colon cancer: Status: Acute Qualifiers: Colon location: unspecified part of colon Qualified Code(s): C18.9 - Malignant neoplasm of colon, unspecified Reason for Visit Reason for Visit: CHEST PAIN Hospital Course Hospital Course Santos Escalera is a 65 year old male with past medical history of stage IV colon cancer, DVT, diabetes, CHF and possible COPD who presents to emergency room with complaints of shortness of breath and productive cough with yellow mucus which started yesterday. He describes his symptoms as moderate in intensity but worsening. Denies associated fever or chills. However he reports that he might be developing sweats right now. He reports left-sided back pain. No nausea or vomiting. No diarrhea. Reports similar pneumonia several years ago. Chest x- ray today reveals left-sided infiltrate consistent with pneumonia. Patient is admitted to the floors with working diagnosis of hypoxia because of pneumonia. On admission patient had leukocytosis without any signs of sepsis, hypoxia needing up to 5 L oxygen supplementation to maintain saturation. CT chest was done which is consistent with possible diffuse mild pneumonitis. During hospitalization patient continued to complain of left upper quadrant abdominal pain for which he underwent CT abdomen pelvis is consistent with mild left nonobstructive hydronephrosis and hydroureter along with omental carcinomatosis. Patient's kidney functions remained stable. He was started on broad-spectrum antibiotics because of immunocompromise status from ongoing chemotherapy for colon cancer. Initially patient's oxygen supplementation did not improve later in view of possible pneumonitis secondary to chemotherapy medications he was started on low-dose steroids after which his oxygen supplementation improved drastically. Patient's blood culture and sputum culture remain negative though his white count trended down drastically on broad-spectrum antibiotics along with improvement of oxygen supplementation hence he has been discharged hemodynamically stable condition on oral antibiotics to finish a 5-day course along with a steroid taper as described in the discharge medications. During hospitalization goals of care was also discussed with patient patient and his family at bedside. Patient stated he is being set up for hospice as an outpatient though after further discussing hospice and describing what hospice means patient states that if not in view of goals of care he has for now. He states for now he would like to live as long as possible and give a trial of experimental oral therapy for colon cancer for which his oncologist is trying as an outpatient. Patient declined hospice. Home health has been arranged for patient follow-up of all above set reasons. He is been discharged in hemodynamically stable condition. Home oxygen evaluation was done prior to discharge and he qualified for 2 L Physical Exam Narrative: EXAM NARRATIVE: The patient is awake alert oriented. No acute distress. Mood and affect are appropriate. Responses are adequate. Skin is warm and dry. Moist extremities Eyes PERRL, extraocular muscles are intact Normal speech Neck supple. No JVD Lungs no respiratory breath sounds bilaterally, left-sided coarse breath sounds and wheezes are present. Right side is clear. Heart S1, S2, regular, no murmurs Abdomen soft, obese, nontender, bowel sounds are present colon resection abdominal wall scar is present. Extremities no edema cyanosis or calf tenderness bilaterally Neuro examination is nonfocal Discharge Data Data Completed and Pending: Completed Studies During Hospitalization Category Date Time Status CT abdomen pelvis w con* [id number] Rout ine Cat Scan 01/27/21 16:[address] angio chest PE protcl [id number] Urge nt Cat Scan 01/25/21 21:22 Completed XR chest 1V nenita ble [id number] Urgent Exams 01/25/21 19:37 Completed CV echo wo/w cont rast [id number] Routine Ultrasound 01/27/21 05:00 Completed US/CV paperwork R outine Ultrasound 01/27/21 Completed Pending at discharge Category Date Time Status Blood Culture Sta t Lab 01/26/21 18:50 Results MRSA by PCR Routi ne Lab 01/28/21 11:48 Ordered Sputum Culture an d Gram Stain Stat Lab 01/27/21 15:53 Results Labs from last 24 hours 01/29/21 01/29/21 01/28/21 06:26 06:26 17:50 WBC 10.4 H RBC 4.41 Hgb 13.0 Hct 41.3 L MCV 93.7 MCH 29.5 MCHC 31.5 RDW 15.2 H Plt Count 226 MPV 9.2 Neut % (Auto) 83.2 Lymph % (Auto) 9.2 [place] % (Auto) 6.4 Eos % (Auto) 0.1 Baso % (Auto) 0.3 Neut # (Auto) 8.65 H Lymph # (Auto) 1.0 [place] # (Auto) 0.7 Eos # (Auto) 0.0 Baso # (Auto) 0.0 Nucleated RBC % (a uto) 0 Nucleated RBCs # 0.0 PT 18.80 H INR 1.53 H Sodium 137 Potassium 5.0 Chloride 101 Carbon Dioxide 26 Anion Gap 15.0 BUN 11 Creatinine 0.5 L GFR Calculation 166.9 H Glucose 204 H Calculated Osmolal ity 289 Calcium 8.9 Total Bilirubin 0.3 AST 21 ALT 23 Alkaline Phosphata se 57 Total Protein 7.1 Albumin 3.4 L Globulin 3.7 Procalcitonin 01/28/21 06:13 WBC RBC Hgb Hct MCV MCH MCHC RDW Plt Count MPV Neut % (Auto) Lymph % (Auto) [place] % (Auto) Eos % (Auto) Baso % (Auto) Neut # (Auto) Lymph # (Auto) [place] # (Auto) Eos # (Auto) Baso # (Auto) Nucleated RBC % (a uto) Nucleated RBCs # PT INR Sodium Potassium Chloride Carbon Dioxide Anion Gap BUN Creatinine GFR Calculation Glucose Calculated Osmolal ity Calcium Total Bilirubin AST ALT Alkaline Phosphata se Total Protein Albumin Globulin Procalcitonin 2.05 H Addt'l Data from Hospital Stay: Laboratory Results WBC 10.4 10^3/uL (4.0 -10.0) H 01/29/21 06:26 RBC 4.41 10^6/uL (4.1 -5.3) 01/29/21 06:26 Hgb 13.0 g/dL (11.7-1 6.6) 01/29/21 06:26 Hct 41.3 % (42.0-52.0 ) L 01/29/21 06:26 MCV 93.7 fL (80-94) 01/29/21 06:26 MCH 29.5 pg (28.0-34. 0) 01/29/21 06:26 MCHC 31.5 g/dL (30.0-3 6.0) 01/29/21 06:26 RDW 15.2 % (12.1-15.1 ) H 01/29/21 06:26 Plt Count 226 10^3/cmm (130 -400) 01/29/21 06:26 MPV 9.2 fL (7.4-10.4) 01/29/21 06:26 Neut % (Auto) 83.2 % 01/29/21 06:26 Lymph % (Auto) 9.2 % 01/29/21 06:26 [place] % (Auto) 6.4 % 01/29/21 06:26 Eos % (Auto) 0.1 % 01/29/21 06:26 Baso % (Auto) 0.3 % 01/29/21 06:26 Neut # (Auto) 8.65 10^3/uL (1.8 -7.7) H 01/29/21 06:26 Lymph # (Auto) 1.0 10^3/uL (0.8- 4.8) 01/29/21 06:26 [place] # (Auto) 0.7 10^3/uL (0.2- 0.9) 01/29/21 06:26 Eos # (Auto) 0.0 10^3/uL (0.0- 0.8) 01/29/21 06:26 Baso # (Auto) 0.0 10^3/uL (0.0- 0.1) 01/29/21 06:26 Nucleated RBC % (a uto) 0 % 01/29/21 06:26 Nucleated RBCs # 0.0 /100WBC 01/29/21 06:26 PT 18.80 SECONDS (12 .1-14.9) H 01/28/21 17:50 INR 1.53 (0.8-1.2) H 01/28/21 17:50 D-Dimer 1.60 ug/mIFEU (0- 0.59) H 01/25/21 19:53 Sodium 137 mmol/L (136-1 45) 01/29/21 06:26 Potassium 5.0 mmol/L (3.5-5 .1) 01/29/21 06:26 Chloride 101 mmol/L (98-10 7) 01/29/21 06:26 Carbon Dioxide 26 mmol/L (22-29) 01/29/21 06:26 Anion Gap 15.0 (5-19) 01/29/21 06:26 BUN 11 mg/dL (8-23) 01/29/21 06:26 Creatinine 0.5 mg/dL (0.7-1. 2) L 01/29/21 06:26 GFR Calculation 166.9 mL/min (90- 130) H 01/29/21 06:26 Glucose 204 mg/dL (65-115 ) H 01/29/21 06:26 Calculated Osmolal ity 289 mOsm/kg (285- 295) 01/29/21 06:26 Calcium 8.9 mg/dL (8.5-10 .5) 01/29/21 06:26 Phosphorus 3.4 mg/dL (2.5-4. 5) 01/26/21 04:30 Phosphorus Cancelled 01/26/21 04:30 Magnesium 1.8 mg/dL (1.7-2. 3) 01/26/21 04:30 Iron 24 ug/dL (59-158) L 01/26/21 04:30 TIBC 327 mcg/dl 01/26/21 04:30 % Saturation 7.3 % (20-50) L 01/26/21 04:30 Unsat Iron Binding 303 ug/dL (112-34 7) 01/26/21 04:30 Total Bilirubin 0.3 mg/dL (0.15-1 .2) 01/29/21 06:26 AST 21 U/L (0-40) 01/29/21 06:26 ALT 23 U/L (0-41) 01/29/21 06:26 Alkaline Phosphata se 57 IU/L (40-130) 01/29/21 06:26 NT-Pro-B Natriuret Pep 305 pg/mL (0-125) H 01/26/21 04:30 Total Protein 7.1 g/dL (6.6-8.7 ) 01/29/21 06:26 Albumin 3.4 g/dL (3.5-5.2 ) L 01/29/21 06:26 Globulin 3.7 g/dL (1.3-4.6 ) 01/29/21 06:26 Procalcitonin 2.05 ng/mL (0-0.5 ) H 01/28/21 06:13 TSH 0.29 uIU/mL (0.27 -4.20) 01/26/21 04:30 Urine Color Yellow (Yellow) 01/27/21 00:01 Urine Appearance Clear (CLEAR) 01/27/21 00:01 Urine pH 5 (5-7) 01/27/21 00:01 Ur Specific Gravit y 1.010 (1.005-1.0 30) 01/27/21 00:01 Urine Protein Neg (Negative) 01/27/21 00:01 Urine Glucose (UA) Norm (Normal) 01/27/21 00:01 Urine Ketones Negative (Negati ve) 01/27/21 00:01 Urine Blood Neg (Negative) 01/27/21 00:01 Urine Nitrate Negative (Negati ve) 01/27/21 00:01 Urine Bilirubin Neg (Negative) 01/27/21 00:01 Urine Urobilinogen Norm mg/dL (Negat chris) 01/27/21 00:01 Ur Leukocyte Rosa ase Negative (Negati ve) 01/27/21 00:01 Urine RBC Rare /hpf (0-2) 01/27/21 00:01 Urine WBC Rare /hpf (0-5) 01/27/21 00:01 Ur Squamous Epith Cells Rare /hpf (0-5) 01/27/21 00:01 Amorphous Sediment Not Reportable 01/27/21 00:01 Urine Bacteria None /hpf (NONE) 01/27/21 00:01 Ur Random Sodium 26 mmol/L 01/27/21 00:01 Ur Random Potassiu m 14 mmol/L 01/27/21 00:01 Ur Random Chloride 11 mmol/L 01/27/21 00:01 Vancomycin Trough 12.3 ug/mL (10-15 ) 01/28/21 06:13 Impressions Chest X-Ray 01/25/21 19:37 Impression: Minimal opacity over surface of left diaphragm which could represent atelectasis or minimal pneumonia. Chest CTA 01/25/21 21:22 IMPRESSION: 1. No pulmonary embolism. 2. Fatty infiltration of the liver. 3. There is moderate emphysema. 4. Scattered left upper lower lobe airspace opacities which are nonspecific but can be seen in pneumonia and COVID-19. 5. Stable 6 mm right upper lobe pulmonary nodule. For patients at low risk (minimal or absent history of smoking and of other known risk factors), recommend CT Chest at 6-12 months, then consider CT Chest at 18-24 months. For patients at high risk (history of smoking or of other known risk factors), recommend CT Chest at 6-12 months, then CT Chest at 18-24 months. (Reference: Verna) REFERENCES: Verna Syed, et al. Guidelines for Management of Incidental Pulmonary Nodules Detected on CT Images: From the Fleischner Society 2017. Radiology. 2017;284(1):228-243. Radiation Dose CTDIVOL = (mGy): DLP = 1621.47 (mGy-cm) Abdomen/Pelvis CT 01/27/21 16:38 IMPRESSION: 1. There is mild left hydronephrosis and hydroureter with mild left perinephric fat stranding without obstructing calculus concerning for recent passage of a stone or urinary tract infection new since the prior exam. 2. Progressing omental carcinomatosis. Larger and more numerous nodules are noted. No ascites. 3. There is constipation but no bowel thickening, colitis or enteritis is identified. 4. Nonspecific bibasilar consolidation left greater than right is present, consistent with atelectasis, edema, or pneumonia. Radiation Dose CTDIVOL = (mGy): DLP = 1981.38 (mGy-cm) Vitals: Last Vital Signs Temp 98.4 F 01/29/21 11:39 Pulse 71 01/29/21 11:39 Resp 18 01/29/21 11:39 BP 106/67 01/29/21 11:39 Pulse Ox 94 04/24/21 11:39 Discharge Plan Discharge Patient Disposition: Home Health Service Condition: Stable Prescriptions: New Advair HFA 115-21 mcg/actuation HFA aerosol inhaler 2 inh inhalation Q12H Qty: 12 RF: 0 Augmentin 875-125 mg tablet 1 tab PO Q12H Qty: 10 RF: 0 levofloxacin 500 mg tablet 500 mg PO DAILY 5 Days Qty: 5 RF: 0 prednisone 10 mg tablet See Taper mg PO DAILY Qty: 30 RF: 0 warfarin 5 mg Tablet 5 mg PO 1400 Qty: 30 RF: 0 warfarin [Jantoven] 4 mg Tablet 4 mg PO DAILY@1400 Qty: 30 RF: 0 Continued Compazine 10 mg tablet 10 mg PO Q6H PRN (Reason: Nausea) Qty: 60 RF: 2 albuterol sulfate 2.5 mg /3 mL (0.083 %) solution for nebulization 2.5 mg inhalation Q4H PRN (Reason: shortness of breath or wheezing) Qty: 180 RF: 0 miscellaneous medical supply Misc See Rx Instructions miscellaneous .COMPLEX Qty: 1 RF: 0 albuterol sulfate [Ventolin HFA] 90 mcg/actuation HFA aerosol inhaler 2 puff INHALATION Q6H PRN (Reason: Shortness Of Breath) RF: 0 hydrocodone-acetaminophen 5-325 mg tablet 1 tab PO Q8H PRN (Reason: pain) 30 Days Qty: 60 RF: 0 dextromethorphan polistirex 30 mg/5 mL suspension,extended rel 12 hr 10 ml PO Q12H PRN (Reason: cough) Qty: 89 RF: 0 Mucinex 1,200 mg tablet extended release 12hr 1,200 mg PO Q12H Qty: 60 RF: 0 ondansetron HCl 8 mg tablet 8 mg PO Q12H PRN (Reason: Nausea) 30 Days Qty: 60 RF: 2 metformin 500 mg tablet 500 mg PO BID@0700,1900 RF: 0 lisinopril 20 mg tablet 20 mg PO DAILY@0700 RF: 0 montelukast 10 mg tablet 10 mg PO DAILY@0700 RF: 0 metoprolol succinate 25 mg tablet extended release 24 hr 25 mg PO DAILY@0700 RF: 0 zolpidem 10 mg tablet 10 mg PO BEDTIME@1900 RF: 0 Lonsurf 20-8.19 mg tablet See Rx Instructions .ROUTE .COMPLEX RF: 0 magnesium 1 tab PO DAILY@0700 RF: 0 gabapentin 300 mg capsule 300 mg PO TID@07,12,19 RF: 0 furosemide [Lasix] 20 mg tablet 20 mg PO DAILY PRN (Reason: Edema) RF: 0 Discontinued warfarin 4 mg tablet 8 mg PO DAILY 14 Days Qty: 28 RF: 0 Discharge Orders: Discharge Order (Routine); Ordered 01/29/21 Ordered By: Regino Pino Other Ambulatory Orders: DME: Oxygen (Order) Location: None Selected Ordered By: Regino Pino [place] [facility] [place] Nan Sellers MD [Primary Care Provider] - 4-7 days Discharge Diet: Cardiac Discharge Activity: Resume usual activity Patient Instructions: Opioid Safety Activity Restrictions/Additional Instructions: You will be on antibiotics including levofloxacin and Augmentin for 5 more days. Your dose of warfarin has been changed to 9 mg daily. Please recheck INR in 3 days. Please follow-up with your primary care provider within next 4 to 7 days. You will also be on prednisone taper for pneumonitis. Discharge Attestations Time Spent in Discharge Care*: greater than 30 min Specific Discharge Activities: educating patient, educating and/or supporting family/caregiver, discussing with disease case manager/social workers/dc planners, documenting/other paperwork and evaluating patient/reviewing data Status at Discharge: Cognitive status at discharge: cognitively intact , Behavioral status at discharge: cooperative , Functional status at discharge: independent ambulation Overall status at discharge: patient is back to baseline Quality Metrics Clinical Quality Measures During this hospital stay, did patient experience: None Coding Level of Care Code Acute [facility] note Diagnoses Hypoxia R09.02 Pneumonia J18.9 Laterality: left Lung location: upper lobe of lung Pneumonia type: due to unspecified organism GENIE (obstructive sleep apnea) G47.33 DVT, bilateral lower limbs I82.593 Affected thrombotic vein of extremity: other lower extremity vein Chronicity: chronic Anticoagulation goal of INR 2 to 3 Z51.81; Z79.01 Hypertension I10 Hypertension type: essential hypertension Diabetes E11.69 Diabetes mellitus type: type 2 Diabetes mellitus exterminator helper termite insulin use: without detention use Diabetes mellitus complication status: with other specified complication Colon cancer C18.9 Colon location: unspecified part of colon
--- NOTE | 2021-01-29 13:22 | PC.NURSE ---
Discharge instructions discussed with patient. IV removed with tip of catheter intact. Patient tolerated well. 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 Instructed patient to call primary care provider Sunday to set up a follow up appt. Patient waiting on ride at the moment.
== END 2021-01-29 13:41 | disposition home health service (06) | DRG 194 ==
LOC: ER 22:54 → MEDSURG 23:35
PROVIDERS: Admitting Provider Internal Medicine; Emergency Provider Student in an Organized Health Care Education/Training Program; PCP Family Medicine; Visit Provider Student in an Organized Health Care Education/Training Program
DX: J18.9 Pneumonia, unspecified organism (principal); E87.1 Hypo-osmolality and hyponatremia; J44.0 Chronic obstructive pulmonary disease with (acute) lower respiratory infection; C18.9 Malignant neoplasm of colon, unspecified; C78.6 Secondary malignant neoplasm of retroperitoneum and peritoneum; N13.30 Unspecified hydronephrosis; I82.593 Chronic embolism and thrombosis of other specified deep vein of lower extremity, bilateral; R91.1 Solitary pulmonary nodule; E11.40 Type 2 diabetes mellitus with diabetic neuropathy, unspecified; R09.02 Hypoxemia; I11.0 Hypertensive heart disease with heart failure; I50.9 Heart failure, unspecified; G47.33 Obstructive sleep apnea (adult) (pediatric); Z79.01 Long term (current) use of anticoagulants; Z87.01 Personal history of pneumonia (recurrent); Z90.49 Acquired absence of other specified parts of digestive tract; Z87.891 Personal history of nicotine dependence; Z79.899 Other long term (current) drug therapy; Z79.891 Long term (current) use of opiate analgesic; Z79.84 Long term (current) use of oral hypoglycemic drugs
CPT/HCPCS: 36415; 71045; 71275; 74177; 80048; 80053; 80069; 80202; 81001; 82436; 83540; 83550; 83735; 83880; 84133; 84145; 84300; 84443; 85025; 85378; 85610; 87040; 87070; 87086; 87205; 87449; 93005; 93306; 94640; 94660; 96365; 99285; C8929; J0696; J1940; J2543; J2920; J3370; J7040; J7626; Q9956; Q9967

== ENCOUNTER → 2021-01-31 15:46 | Outpatient (BNVA) | payer MEDICARE, SELFPAY | PROVIDERS: PCP Family Medicine; Visit Provider Family Medicine | DX: I82.503 Chronic embolism and thrombosis of unspecified deep veins of lower extremity, bilateral (principal); J18.9 Pneumonia, unspecified organism; J41.0 Simple chronic bronchitis; Z51.81 Encounter for therapeutic drug level monitoring; Z79.01 Long term (current) use of anticoagulants; C18.9 Malignant neoplasm of colon, unspecified; Z78.9 Other specified health status; R91.1 Solitary pulmonary nodule; Z74.09 Other reduced mobility; G89.3 Neoplasm related pain (acute) (chronic); R09.02 Hypoxemia | CPT/HCPCS: 85610 ==

== ENCOUNTER → 2021-02-08 09:25 | Outpatient (BNVA) | payer MEDICARE, SELFPAY | PROVIDERS: PCP Family Medicine; Visit Provider Family Medicine | DX: Z51.81 Encounter for therapeutic drug level monitoring (principal); Z79.01 Long term (current) use of anticoagulants | CPT/HCPCS: 85610 ==

== ENCOUNTER → 2021-02-16 09:21 | Outpatient (BNVA) | payer MEDICARE, SELFPAY | PROVIDERS: PCP Family Medicine; Referring Provider Family Medicine; Visit Provider Family Medicine | DX: I82.503 Chronic embolism and thrombosis of unspecified deep veins of lower extremity, bilateral (principal) | CPT/HCPCS: 85610 ==

== ENCOUNTER → 2021-02-23 14:30 | Outpatient (BNVA) | payer MEDICARE, SELFPAY | PROVIDERS: PCP Family Medicine; Visit Provider Family Medicine | DX: I82.503 Chronic embolism and thrombosis of unspecified deep veins of lower extremity, bilateral (principal); Z79.01 Long term (current) use of anticoagulants; Z51.81 Encounter for therapeutic drug level monitoring | CPT/HCPCS: 85610 ==

== ENCOUNTER → 2021-03-04 10:53 | Outpatient (BNVA) | payer MEDICARE, SELFPAY | PROVIDERS: PCP Family Medicine; Visit Provider Family Medicine | DX: I82.503 Chronic embolism and thrombosis of unspecified deep veins of lower extremity, bilateral (principal) | CPT/HCPCS: 85610 ==

== ENCOUNTER → 2021-03-29 11:50 | Outpatient (BNVA) | payer MEDICARE, SELFPAY | PROVIDERS: PCP Family Medicine; Visit Provider Family Medicine | DX: I82.503 Chronic embolism and thrombosis of unspecified deep veins of lower extremity, bilateral (principal) | CPT/HCPCS: 85610 ==

== ENCOUNTER → 2021-04-12 16:19 | Outpatient (BNVA) | payer MEDICARE, SELFPAY | PROVIDERS: PCP Family Medicine; Visit Provider Family Medicine | DX: C18.9 Malignant neoplasm of colon, unspecified (principal); I82.503 Chronic embolism and thrombosis of unspecified deep veins of lower extremity, bilateral; Z51.81 Encounter for therapeutic drug level monitoring; R10.31 Right lower quadrant pain; G89.3 Neoplasm related pain (acute) (chronic); Z79.01 Long term (current) use of anticoagulants; R10.32 Left lower quadrant pain; G89.4 Chronic pain syndrome | CPT/HCPCS: 85610 ==

== ENCOUNTER → 2021-04-29 10:30 | Outpatient (BNVA) | payer MEDICARE, SELFPAY | PROVIDERS: PCP Family Medicine; Visit Provider Family Medicine | DX: I82.503 Chronic embolism and thrombosis of unspecified deep veins of lower extremity, bilateral (principal); Z51.81 Encounter for therapeutic drug level monitoring; Z79.01 Long term (current) use of anticoagulants | CPT/HCPCS: 85610 ==

== ENCOUNTER → 2021-05-10 15:33 | Outpatient (BNVA) | payer MEDICARE, SELFPAY | PROVIDERS: PCP Family Medicine; Visit Provider Nurse Practitioner Family | DX: I82.503 Chronic embolism and thrombosis of unspecified deep veins of lower extremity, bilateral (principal); R18.0 Malignant ascites; R06.02 Shortness of breath | CPT/HCPCS: 85610 ==

== ENCOUNTER → 2021-06-08 11:45 | Outpatient (BNVA) | payer MEDICARE, SELFPAY | PROVIDERS: PCP Family Medicine; Visit Provider Family Medicine | DX: I82.503 Chronic embolism and thrombosis of unspecified deep veins of lower extremity, bilateral (principal) | CPT/HCPCS: 85610 ==

== ENCOUNTER 2021-08-02 17:01 | Emergency (ER) | payer MEDICARE, SELFPAY ==
[2021-08-02 17:44] VITALS: BP 131/80; PULSE 72; RESP 22; TEMP 36.7; O2SAT 89; BMI 36.9
[2021-08-02 17:50] VITALS: O2SAT 98
--- NOTE | 2021-08-02 18:08 | XRR_ITS ---
PROCEDURE INFORMATION: Exam: XR Chest Exam date and time: 08/02/2021 6:08 PM Age: 66 years old Clinical indication: Cough and dyspnea; Prior surgery; Surgery type: Port; Patient HX: HX colon cancer, sob/cough x 10days; Additional info: Dyspnea/cough TECHNIQUE: Imaging protocol: XR of the chest. Views: 1 view. COMPARISON: CR XR chest 1V portable [id number] 01/25/2021 8:17 PM FINDINGS: Tubes, catheters and devices: Infusion port catheter is in place with its tip in the superior vena cava. Lungs: There is some mild residual infiltrate at the left lung base. This is improved compared with 01/25/2021. No new infiltrate is identified. There is no pulmonary vascular congestion. Pleural spaces: Unremarkable. No pleural effusion. No pneumothorax. Heart/Mediastinum: Heart is within normal limits of size. Bones/joints: Unremarkable. XR/XR chest 1V portable [id number] IMPRESSION: 1. Improving pulmonary infiltrates. 2. No acute finding. Radiation Dose CTDIVOL = (mGy): DLP = (mGy-cm)
[2021-08-02 18:25] VITALS: BP 109/73; PULSE 72; RESP 18; O2SAT 98
--- NOTE | 2021-08-02 18:34 | CTR_ITS ---
PROCEDURE INFORMATION: Exam: CTA Chest With Contrast Exam date and time: 08/02/2021 6:34 PM Age: 66 years old Clinical indication: Other: Hemoptysis; Prior surgery; Surgery type: Port, appy, colon TECHNIQUE: Imaging protocol: Computed tomographic angiography of the chest with contrast. 3D rendering (Not supervised by radiologist): MIP and/or 3D reconstructed images were created by the technologist. Radiation optimization: All CT scans at this facility use at least one of these dose optimization techniques: automated exposure control; mA and/or kV adjustment per patient size (includes targeted exams where dose is matched to clinical indication); or iterative reconstruction. Contrast material: OMNI 350; Contrast volume: 95 ml; Contrast route: INTRAVENOUS (IV); COMPARISON: 1. CT angio chest w abd pel w con 09/12/2020 1:[address] angio chest PE protcl [id number] 01/25/2021 9:53:31 PM RADIATION DOSE METRICS: Total DLP (mGy-cm): 3005.78 FINDINGS: Pulmonary arteries: There is no evidence of filling defects within the pulmonary arterial circulation to suggest pulmonary embolism. There is no evidence of filling defects within the pulmonary arterial circulation to suggest pulmonary embolism. Aorta: There is no thoracic aortic aneurysm or dissection. Lungs: There are calcified granulomas in both lungs. There is moderate centrilobular emphysema not significantly changed. No focal infiltrate is identified. There is some mild dependent atelectasis at the lung bases. 8 mm nodule series 5, image 71 in the right lung abutting the fissure previously measured 6 mm on 01/25/2021 and 5 mm on 09/12/2020. There is also a new nodule on the same slice in the middle lobe abutting the fissure measuring 4 mm 4 mm nodule superior segment right lower lobe not significantly changed. 5 mm size nodule left upper lobe image number 29 previously 3 mm. These increasing nodules are worrisome for pulmonary metastasis there is also a 7 mm sized nodule right upper lobe image number 43 previously 5 mm. Pleural spaces: There is small bilateral pleural effusions. Heart: Unremarkable. No cardiomegaly. No pericardial effusion. Lymph nodes: There are calcified left hilar lymph nodes in keeping with old granulomatous disease. There is no evidence of lymphadenopathy. Bones/joints: Unremarkable. No acute fracture. Soft tissues: Unremarkable. IMPRESSION: 1. Small bilateral pleural effusions. 2. Increasing pulmonary nodules worrisome for pulmonary metastasis. 3. Old granulomatous disease. 4. No evidence pulmonary embolism. PROCEDURE INFORMATION: Exam: CTA Abdomen and Pelvis With Contrast Exam date and time: 08/02/2021 6:34 PM Age: 66 years old Clinical indication: Other: Hemoptysis; Prior surgery; Surgery type: Port, appy, colon TECHNIQUE: Imaging protocol: Computed tomographic angiography of the abdomen and pelvis with contrast material. 3D rendering (Not supervised by radiologist): MIP and/or 3D reconstructed images were created by the technologist. Radiation optimization: All CT scans at this facility use at least one of these dose optimization techniques: automated exposure control; mA and/or kV adjustment per patient size (includes targeted exams where dose is matched to clinical indication); or iterative reconstruction. Contrast material: OMNI 350; Contrast volume: 95 ml; Contrast route: INTRAVENOUS (IV); COMPARISON: 1. CT angio chest w abd pel w con 09/12/2020 1:[address] abdomen pelvis w con* [id number] 01/27/2021 5:57:39 PM RADIATION DOSE METRICS: Total DLP (mGy-cm): 3005.78 FINDINGS: Aorta: There is no evidence of an abdominal aortic aneurysm. Celiac trunk and mesenteric arteries: No occlusion or significant stenosis. Renal arteries: No occlusion or significant stenosis. Right iliac arteries: No occlusion or significant stenosis. Left iliac arteries: No occlusion or significant stenosis. Liver: There are at least 6 lesions in the liver, larger than on the previous examination with subtle peripheral enhancement measuring up to 2.3 cm in size worrisome for hepatic metastasis. Gallbladder and bile ducts: The gallbladder is normal. Pancreas: The pancreas is normal. Spleen: The spleen is normal. Adrenal glands: The adrenal glands are normal. Kidneys and ureters: The kidneys are normal. There is no evidence of hydronephrosis. There is no evidence of renal or ureteral calcifications. Stomach and bowel: There is no evidence of intestinal obstruction. Appendix: No evidence of appendicitis. Intraperitoneal space: There is a moderate amount of free intraperitoneal fluid present. Peritoneal carcinomatosis is partly obscured by the ascites but appears to have increased in the upper abdomen. Lymph nodes: There is no evidence of lymphadenopathy. Urinary bladder: Unremarkable. No mass. Reproductive: Unremarkable as visualized. Bones/joints: No acute fracture. No dislocation. Soft tissues: There are bilateral inguinal hernias containing fat. CT/CT angio chest abdomen pelvis IMPRESSION: 1. Increasing peritoneal carcinomatosis. 2. Hepatic metastasis. 3. Ascites Radiation Dose CTDIVOL = (mGy): DLP = 3005.78~3005.78 (mGy-cm)
--- NOTE | 2021-08-02 18:40 | ED_ITS ---
HPI - SOB/Dyspnea General: Chief Complaint: Shortness of Breath/Dyspnea Stated Complaint: THROWING UP BLOOD (SENT BY ) Time Seen by Provider: 08/02/21 18:08 Source: patient Mode of arrival: ambulatory Limitations: no limitations History of Present Illness: HPI Narrative: 66-year-old male who has a history of colon cancer has had metastases to the lung and liver he is no longer on chemo as he states it is grown too much to be treated and is not a surgical candidate either. He states that he spat some slight hemoptysis and some dyspnea today and some small amount of bright red blood in the stool. He is on Coumadin for DVTs. He has had increased cough to causing him some sharp pain in his chest. Denies any other symptoms denies any worsening improving factors. Associated symptoms: Reports hemoptysis; Deny chest pain or fever(s) Review of Systems Const: Denies: fever(s), chills, body aches or change in appetite Eyes: Denies: blurry vision or eye discomfort ENMT: Denies: throat pain or dental pain Card: Denies: chest pain Resp: Reports: dyspnea, non-productive cough and hemoptysis GI: Reports: hematochezia : Denies: dysuria Musc: Denies: neck pain or back pain Skin/Breast: Denies: rash Neuro: Denies: headache(s) Psych: Denies: depression Oswaldo/Lymph: Denies: easy bruising All/Imm: Denies: urticaria PFSH ED PFSH: Medical History Allergy CHF (congestive heart failure) Colon cancer COPD (chronic obstructive pulmonary disease) Diabetes DVT (deep venous thrombosis) Hypertension Insomnia Neuropathy GENIE (obstructive sleep apnea) Surgical History H/O hemorrhoidectomy Social History Smoking and tobacco status: former smoker Alcohol intake: never Physical Exam Const: COMMON NORMALS: no acute distress, patient oriented x3 and healthy appearing HENMT: COMMON NORMALS: normocephalic and atraumatic HEAD & SCALP: normocephalic and atraumatic Eye: COMMON NORMALS: Equal, round and reactive pupils present and EOMs intact bilaterally PUPIL: Yes Equal, round and reactive pupils present Neck/C-Spine: COMMON NORMALS: full ROM and supple Chest: COMMONS NORMALS: normal inspection of the chest and normal palpation of entire chest wall Resp: COMMON NORMALS: normal respiratory effort, No retractions, No use of accessory muscles and clear to auscultation bilaterally AUSCULTATION: clear to auscultation bilaterally Cardio: COMMON NORMALS: regular rate, regular rhythm and No murmurs present (Cardio) RATE: regular rate RHYTHM: regular rhythm GI: COMMON NORMALS: Normal to inspection, nondistended, normoactive bowel sounds present, Soft to palpation, non-tender and no masses PALPATION: Yes Soft to palpation Extremity: COMMON NORMALS: normal to inspection and full ROM Neuro: COMMON NORMALS: patient oriented x3, moves all extremities and no focal motor deficits Psych: COMMON NORMALS: mental status grossly normal, Normal thought process present and cooperative THOUGHT PROCESS: Normal thought process present Skin: COMMON NORMALS: no rashes or lesions noted and no wounds GENERAL SKIN EXAM: no rashes or lesions noted Course Vital Signs: Vital signs: Vital Signs Temperature 98.0 F 08/02/21 17:44 Pulse Rate 72 08/02/21 18:25 Respiratory Rate 18 08/02/21 18:25 Blood Pressure 109/73 08/02/21 18:25 Pulse Oximetry 98 08/02/21 18:25 MDM - SOB/Dyspnea MDM Narrative: Medical decision making narrative: Patient presents here with hemoptysis and cough likely from his cancer. He is well-appearing here with no acute findings on his CT. He has no signs of acute blood loss his blood count here is normal his vital signs here been normal he is stable for discharge follow-up PCP and return if worsening. Lab Data: Labs: Lab Results 08/02/21 08/02/21 08/02/21 18:23 18:58 18:58 WBC 9.6 10^3/uL 10^3/ uL (4.0-10.0) RBC 4.27 10^6/uL 10^6 /uL (4.1-5.3) Hgb 12.4 g/dL g/dL (11.7-16.6) Hct 40.3 % L % (42.0-52.0) MCV 94.4 fl H fl (80-94) MCH 29.0 pg pg (28.0-34.0) MCHC 30.8 g/dL g/dL (30.0-36.0) RDW 15.9 % H % (12.1-15.1) Plt Count 299 10^3/cmm 10^3 /cmm (130-400) MPV 8.7 fL fL (7.4-10.4) Neut % (Auto) 61.6 % % Lymph % (Auto) 19.7 % % [place] % (Auto) 14.1 % % Eos % (Auto) 3.7 % % Baso % (Auto) 0.6 % % Neut # (Auto) 5.88 10^3/uL 10^3 /uL (1.8-7.7) Lymph # (Auto) 1.9 10^3/uL 10^3/ uL (0.8-4.8) [place] # (Auto) 1.4 10^3/uL H 10^ 3/uL (0.2-0.9) Eos # (Auto) 0.4 10^3/uL 10^3/ uL (0.0-0.8) Baso # (Auto) 0.1 10^3/uL 10^3/ uL (0.0-0.1) Nucleated RBC % (a uto) 0 % % Nucleated RBCs # 0.0 /100WBC /100W BC PT 22.40 SECONDS H S ECONDS (12.1-14.9) INR 1.92 H (0.8-1.2) APTT 42.2 SECONDS H SE CONDS (23.9-36.7) Specimen Type Sample Site ABG pH ABG pCO2 ABG pO2 ABG HCO3 ABG O2 Saturation ABG Base Excess Shilo Test Hematocrit Hgb O2 Saturation Carboxyhemoglobin Methemoglobin Total Hemoglobin Ionized Calcium O2 Delivery Device O2 Liters/Min Central Supply Worker ID Sodium 136 mmol/L mmol/L (136-145) Potassium 4.3 mmol/L mmol/L (3.5-5.1) Chloride 98 mmol/L mmol/L (98-107) Carbon Dioxide 31 mmol/L H mmol/ L (22-29) Anion Gap 11.3 (5-19) BUN 6 mg/dL L mg/dL (8-23) Creatinine 0.5 mg/dL L mg/dL (0.7-1.2) GFR Calculation 166.4 mL/min H mL /min (90-130) Glucose 108 mg/dL mg/dL (65-115) Calculated Osmolal ity 280 mOsm/kg L mOs m/kg (285-295) Calcium 9.0 mg/dL mg/dL (8.5-10.5) Total Bilirubin 0.3 mg/dL mg/dL (0.15-1.2) AST 20 U/L U/L (0-40) ALT 17 U/L U/L (0-41) Alkaline Phosphata se 75 IU/L IU/L (40-130) Creatine Kinase 64 U/L U/L (39-308) Troponin T Baselin e Troponin T 120 Min lauryn Delta Troponin T Total Protein 6.8 g/dL g/dL (6.6-8.7) Albumin 3.9 g/dL g/dL (3.5-5.2) Globulin 2.9 g/dL g/dL (1.3-4.6) Lipase 45 U/L U/L (13-60) 08/02/21 08/02/21 08/02/21 18:58 19:02 20:45 WBC RBC Hgb Hct MCV MCH MCHC RDW Plt Count MPV Neut % (Auto) Lymph % (Auto) [place] % (Auto) Eos % (Auto) Baso % (Auto) Neut # (Auto) Lymph # (Auto) [place] # (Auto) Eos # (Auto) Baso # (Auto) Nucleated RBC % (a uto) Nucleated RBCs # PT INR APTT Specimen Type Arterial Sample Site Radial, right ABG pH 7.41 (7.35-7.45) ABG pCO2 49.1 mmHg H mmHg (35-45) ABG pO2 137.0 mmHg H mmHg (80.0-100.0) ABG HCO3 31.0 mmol/L H mmo l/L (22-26) ABG O2 Saturation 99.7 ABG Base Excess 5.3 mmol/L H mmol /L (-2.0-2.0) Shilo Test Pos Hematocrit 37.9 % L % (42-52) Hgb O2 Saturation 97.6 % % (95-100) Carboxyhemoglobin 1.2 %THgb %THgb (0.4-20.1) Methemoglobin 1.0 % % (0.4-1.5) Total Hemoglobin 12.4 g/dL L g/dL (14-18) Ionized Calcium 1.2 mmol/L mmol/L (1.1-1.4) O2 Delivery Device Nc O2 Liters/Min 3.0 % % Central Supply Worker ID [email or web address] Sodium 138.0 mmol/L mmol /L (131-143) Potassium 4.1 mmol/L mmol/L (3.5-5.0) Chloride Carbon Dioxide Anion Gap BUN Creatinine GFR Calculation Glucose 108.0 mg/dL mg/dL (70-115) Calculated Osmolal ity Calcium Total Bilirubin AST ALT Alkaline Phosphata se Creatine Kinase Troponin T Baselin e 11 ng/L ng/L (0-15) Troponin T 120 Min lauryn 10.83 ng/L ng/L (0-15) Delta Troponin T -0.17 ABS# L ABS# (0-10) Total Protein Albumin Globulin Lipase Imaging Data^: CT Chest: Attestation: I personally reviewed and interpreted this imaging study as follows: Radiologist's impression: [id number] [address] [address] Scan Report Signed Patient: Santos Escalera Unit #: [id number] : 1955 Age/Sex: 66 / M ADM Date: 08/02/21 Loc: ER Room/Bed: Attending Dr: Ordering Provider/Ordering MD: Patrick Correa MD Date of Service: 08/02/21 Procedure(s): CT angio chest abdomen pelvis Accession Number(s): [id number] Report Number: [id number] PROCEDURE INFORMATION: Exam: CTA Chest With Contrast Exam date and time: 08/02/2021 6:34 PM Age: 66 years old Clinical indication: Other: Hemoptysis; Prior surgery; Surgery type: Port, appy, colon TECHNIQUE: Imaging protocol: Computed tomographic angiography of the chest with contrast. 3D rendering (Not supervised by radiologist): MIP and/or 3D reconstructed images were created by the technologist. Radiation optimization: All CT scans at this facility use at least one of these dose optimization techniques: automated exposure control; mA and/or kV adjustment per patient size (includes targeted exams where dose is matched to clinical indication); or iterative reconstruction. Contrast material: OMNI 350; Contrast volume: 95 ml; Contrast route: INTRAVENOUS (IV); COMPARISON: 1. CT angio chest w abd pel w con 09/12/2020 1:[address] angio chest PE protcl [id number] 01/25/2021 9:53:31 PM RADIATION DOSE METRICS: Total DLP (mGy-cm): 3005.78 FINDINGS: Pulmonary arteries: There is no evidence of filling defects within the pulmonary arterial circulation to suggest pulmonary embolism. There is no evidence of filling defects within the pulmonary arterial circulation to suggest pulmonary embolism. Aorta: There is no thoracic aortic aneurysm or dissection. Lungs: There are calcified granulomas in both lungs. There is moderate centrilobular emphysema not significantly changed. No focal infiltrate is identified. There is some mild dependent atelectasis at the lung bases. 8 mm nodule series 5, image 71 in the right lung abutting the fissure previously measured 6 mm on 01/25/2021 and 5 mm on 09/12/2020. There is also a new nodule on the same slice in the middle lobe abutting the fissure measuring 4 mm 4 mm nodule superior segment right lower lobe not significantly changed. 5 mm size nodule left upper lobe image number 29 previously 3 mm. These increasing nodules are worrisome for pulmonary metastasis there is also a 7 mm sized nodule right upper lobe image number 43 previously 5 mm. Pleural spaces: There is small bilateral pleural effusions. Heart: Unremarkable. No cardiomegaly. No pericardial effusion. Lymph nodes: There are calcified left hilar lymph nodes in keeping with old granulomatous disease. There is no evidence of lymphadenopathy. Bones/joints: Unremarkable. No acute fracture. Soft tissues: Unremarkable. IMPRESSION: 1. Small bilateral pleural effusions. 2. Increasing pulmonary nodules worrisome for pulmonary metastasis. 3. Old granulomatous disease. 4. No evidence pulmonary embolism. PROCEDURE INFORMATION: Exam: CTA Abdomen and Pelvis With Contrast Exam date and time: 08/02/2021 6:34 PM Age: 66 years old Clinical indication: Other: Hemoptysis; Prior surgery; Surgery type: Port, appy, colon TECHNIQUE: Imaging protocol: Computed tomographic angiography of the abdomen and pelvis with contrast material. 3D rendering (Not supervised by radiologist): MIP and/or 3D reconstructed images were created by the technologist. Radiation optimization: All CT scans at this facility use at least one of these dose optimization techniques: automated exposure control; mA and/or kV adjustment per patient size (includes targeted exams where dose is matched to clinical indication); or iterative reconstruction. Contrast material: OMNI 350; Contrast volume: 95 ml; Contrast route: INTRAVENOUS (IV); COMPARISON: 1. CT angio chest w abd pel w con 09/12/2020 1:[address] abdomen pelvis w con* [id number] 01/27/2021 5:57:39 PM RADIATION DOSE METRICS: Total DLP (mGy-cm): 3005.78 FINDINGS: Aorta: There is no evidence of an abdominal aortic aneurysm. Celiac trunk and mesenteric arteries: No occlusion or significant stenosis. Renal arteries: No occlusion or significant stenosis. Right iliac arteries: No occlusion or significant stenosis. Left iliac arteries: No occlusion or significant stenosis. Liver: There are at least 6 lesions in the liver, larger than on the previous examination with subtle peripheral enhancement measuring up to 2.3 cm in size worrisome for hepatic metastasis. Gallbladder and bile ducts: The gallbladder is normal. Pancreas: The pancreas is normal. Spleen: The spleen is normal. Adrenal glands: The adrenal glands are normal. Kidneys and ureters: The kidneys are normal. There is no evidence of hydronephrosis. There is no evidence of renal or ureteral calcifications. Stomach and bowel: There is no evidence of intestinal obstruction. Appendix: No evidence of appendicitis. Intraperitoneal space: There is a moderate amount of free intraperitoneal fluid present. Peritoneal carcinomatosis is partly obscured by the ascites but appears to have increased in the upper abdomen. Lymph nodes: There is no evidence of lymphadenopathy. Urinary bladder: Unremarkable. No mass. Reproductive: Unremarkable as visualized. Bones/joints: No acute fracture. No dislocation. Soft tissues: There are bilateral inguinal hernias containing fat. CT/CT angio chest abdomen pelvis IMPRESSION: 1. Increasing peritoneal carcinomatosis. 2. Hepatic metastasis. 3. Ascites Radiation Dose CTDIVOL = (mGy): DLP = 3005.78 3005.78 (mGy-cm) Dictated By: Jeremiah Walden Signed By: Jeremiah Walden Signed Date/Time: 08/02/212128 DD/ 33 Discharge Plan Discharge Patient Disposition: Home Clinical Impression: Cough with hemoptysis, Colon cancer metastasized to lung Condition: Stable Prescriptions: No Action albuterol sulfate 2.5 mg /3 mL (0.083 %) solution for nebulization 2.5 mg inhalation Q4H PRN (Reason: shortness of breath or wheezing) Qty: 180 RF: 0 miscellaneous medical supply Misc See Rx Instructions miscellaneous .COMPLEX Qty: 1 RF: 0 albuterol sulfate [Ventolin HFA] 90 mcg/actuation HFA aerosol inhaler 2 puff INHALATION Q6H PRN (Reason: Shortness Of Breath) Qty: 8.5 RF: 5 fluticasone propion-salmeterol [Advair Diskus] 250-50 mcg/dose blister with device 1 inh inhalation Q12H Qty: 60 RF: 5 furosemide 20 mg tablet See Rx Instructions .ROUTE .COMPLEX Qty: 30 RF: 2 gabapentin 300 mg capsule 300 mg PO TID PRN (Reason: pain) 30 Days Qty: 90 RF: 2 metoprolol succinate 25 mg tablet extended release 24 hr 25 mg PO DAILY 30 Days Qty: 30 RF: 2 lisinopril 20 mg tablet 10 mg PO DAILY 30 Days Qty: 15 RF: 0 metformin 500 mg tablet See Rx Instructions .ROUTE .COMPLEX Qty: 60 RF: 2 montelukast 10 mg tablet See Rx Instructions .ROUTE .COMPLEX Qty: 30 RF: 2 zolpidem 10 mg tablet 10 mg PO .at bedtime 30 Days Qty: 30 RF: 2 miscellaneous medical supply Misc See Rx Instructions miscellaneous .COMPLEX Qty: 1 RF: 0 (DME) Diabetic Shoes See Rx Instructions .Route .MEDSUPPLY Qty: 1 RF: 0 warfarin 4 mg tablet See Rx Instructions .ROUTE .COMPLEX Qty: 60 RF: 2 oxycodone 5 mg tablet 5 mg PO TID PRN (Reason: pain) 30 Days Qty: 90 RF: 0 magnesium 1 tab PO DAILY@0700 RF: 0 warfarin 5 mg Tablet 5 mg PO 1400 Qty: 30 RF: 0 Discharge Orders: Discharge ED (Routine); Ordered 08/02/21 Ordered By: Patrick Correa Referrals: Nan Sellers MD [Primary Care Provider] - Discharge Diet: Advance as tolerated Discharge Activity: Resume usual activity Patient Instructions: Coughing Up Blood (Hemoptysis) (ED) Coding Level of Care Code 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
[2021-08-02 18:52] LABS: INR 1.92 (0.8-1.2)
[2021-08-02 18:53] LABS: Partial Thromboplastin Time 42.2 SECONDS (23.9-36.7)
[2021-08-02 19:13] LABS: ABG PCO2 49.1 mmHg (35-45); ABG PH Result 7.41 (7.35-7.45); Arterial Blood Gas Hematocrit 37.9 % (42-52); Base Excess ABG 5.3 mmol/L (-2.0-2.0); Blood Gas Allen Test Pos; Blood Gas Sample Type Arterial; Carboxyhemoglobin 1.2 %THgb (0.4-20.1); HGB O2 Sat 97.6 % (95-100); Ionized Calcium Level - ABG 1.2 mmol/L (1.1-1.4); Oxygen Saturation ABG 99.7; Potassium Level - ABG 4.1 mmol/L (3.5-5.0); Total Hemoglobin 12.4 g/dL (14-18)
[2021-08-02 19:13] LABS: Basophils # 0.1 10^3/uL (0.0-0.1); Basophils % 0.6 %; Eosinophils # 0.4 10^3/uL (0.0-0.8); Eosinophils % 3.7 %; Hematocrit 40.3 % (42.0-52.0); Hemoglobin 12.4 g/dL (11.7-16.6); Lymphocytes # 1.9 10^3/uL (0.8-4.8); Lymphocytes % 19.7 %; Mean Corpuscular HGB Conc 30.8 g/dL (30.0-36.0); Mean Corpuscular Volume 94.4 fl (80-94); Mean Platelet Volume 8.7 fL (7.4-10.4); Monocytes # 1.4 10^3/uL (0.2-0.9); Monocytes % 14.1 %; Neutrophils # 5.88 10^3/uL (1.8-7.7); Neutrophils % 61.6 %; Nucleated Red Blood Cells % 0 %; Platelet Count 299 10^3/cmm (130-400); Red Blood Count 4.27 10^6/uL (4.1-5.3); Red Cell Distribution Width 15.9 % (12.1-15.1); White Blood Count 9.6 10^3/uL (4.0-10.0)
[2021-08-02 19:14] LABS: Blood Gas Sample Site Radial, right; Oxygen Device NC
[2021-08-02] MEDS: ondansetron 2 mg/ML SDV 2 mL 4 MG IVP (19:15)
[2021-08-02] MEDS: morphine 4 mg/mL SDV 1 mL IVP (19:15)
[2021-08-02 19:34] LABS: Alanine Aminotransferase 17 U/L (0-41); Albumin Level 3.9 g/dL (3.5-5.2); Alkaline Phosphatase 75 IU/L (40-130); Anion Gap 11.3 (5-19); Aspartate Amino Transferase 20 U/L (0-40); Blood Urea Nitrogen 6 mg/dL (8-23); Carbon Dioxide 31 mmol/L (22-29); Chloride 98 mmol/L (98-107); Creatine Phosphokinase 64 U/L (39-308); Globulin 2.9 g/dL (1.3-4.6); Glomerular Filtration Rate 166.4 mL/min (90-130); Glucose 108 mg/dL (65-115); Lipase 45 U/L (13-60); Osmolality Calculated 280 mOsm/kg (285-295); Potassium 4.3 mmol/L (3.5-5.1); Sodium 136 mmol/L (136-145); Total Bilirubin 0.3 mg/dL (0.15-1.2); Total Protein 6.8 g/dL (6.6-8.7)
[2021-08-02 19:35] LABS: Troponin(5th) Baseline 11 ng/L (0-15)
--- NOTE | 2021-08-02 19:51 | PC.NURSE ---
PT REPORTS ALLERGY TO MORPHINE AT THE TIME OF ADMINISTRATION. MEDICATION RETURNED, WITNESSED BY CHARGE NURSE. NEW ORDER OBTAINED FROM DR SOUTH.
[2021-08-02] MEDS: HYDROmorphone 1 mg/mL INJ 1 mL 0.5 MG IVP (19:56)
[2021-08-02] MEDS: iohexol 350 mg/mL 100 mL Btl IV (20:25)
[2021-08-02 21:00] VITALS: BP 118/77; PULSE 77; RESP 20; O2SAT 97
[2021-08-02 21:11] LABS: Troponin 5 2HR 10.83 ng/L (0-15)
[2021-08-02 21:14] LABS: Troponin 5 2HR Delta -0.17 ABS# (0-10)
[2021-08-02 21:35] LABS: Add Urine Microscopic? NO; Charge for UA Resulting for Rev
[2021-08-02 21:57] LABS: Bilirubin Urine Neg (Negative); Blood Urine Neg (Negative); Glucose Urine UA Norm (Normal); Ketones Urine Negative (Negative); Leukocyte Esterase Urine Negative (Negative); Nitrate Urine Negative (Negative); Protein Urine Neg (Negative); Urine Appearance Clear (CLEAR); Urine Color Yellow (Yellow); Urobilinogen Urine Norm (Negative); pH Urine 6.5 (5-7)
[2021-08-02 22:00] VITALS: BP 129/80; PULSE 76; RESP 22; O2SAT 96
[2021-08-02] MEDS: HYDROcodone-acetaminophen 10-325 mg Tablet 1 TAB PO (22:06)
[2021-08-02 22:34] VITALS: BP 131/77; PULSE 82; RESP 22; O2SAT 97
== END 2021-08-02 22:05 | disposition home or self-care (01) ==
PROVIDERS: Family Medicine; Emergency Provider Emergency Medicine; PCP Family Medicine
DX: K92.0 Hematemesis (principal); C78.00 Secondary malignant neoplasm of unspecified lung; C18.9 Malignant neoplasm of colon, unspecified; Z79.01 Long term (current) use of anticoagulants; Z79.891 Long term (current) use of opiate analgesic; E11.9 Type 2 diabetes mellitus without complications; Z79.84 Long term (current) use of oral hypoglycemic drugs; J44.9 Chronic obstructive pulmonary disease, unspecified; I11.0 Hypertensive heart disease with heart failure; I50.9 Heart failure, unspecified; Z86.718 Personal history of other venous thrombosis and embolism
CPT/HCPCS: 36415; 36600; 71045; 71275; 74174; 80051; 80053; 81003; 82330; 82550; 82805; 83690; 84484; 85025; 85610; 85730; 96374; 96375; 99284; J1170; J2270; J2405; Q9967

== ENCOUNTER 2021-08-11 10:26 | Outpatient (CLI) | payer MEDICARE, SELFPAY ==
[2021-08-11 11:11] VITALS: BP 134/85; PULSE 76; RESP 16; TEMP 36.1; O2SAT 96; BMI 24.0
[2021-08-11 11:24] LABS: INR 3.93 (0.8-1.2)
--- NOTE | 2021-08-11 11:52 | PC.NURSE ---
Pt only help coumadin for 24 hours. PT/INR elevated. Will reschedule patient. Centralized scheduling notified. Patient to be in contact with PCP for instructions on holing Coumadin. Patient reported passing blood in stool this AM.
== END 2021-08-11 10:27 | disposition home or self-care (01) ==
LOC: GILAB 10:30
PROVIDERS: Radiology Neuroradiology; PCP Family Medicine; Visit Provider Family Medicine
DX: I82.503 Chronic embolism and thrombosis of unspecified deep veins of lower extremity, bilateral (principal); R18.0 Malignant ascites; C18.9 Malignant neoplasm of colon, unspecified; G89.3 Neoplasm related pain (acute) (chronic); Z53.8 Procedure and treatment not carried out for other reasons
CPT/HCPCS: 36415; 85610

== ENCOUNTER → 2021-08-13 10:41 | Outpatient (BNVA) | payer MEDICARE, SELFPAY | PROVIDERS: PCP Family Medicine; Visit Provider Family Medicine | DX: Z51.81 Encounter for therapeutic drug level monitoring (principal); Z79.01 Long term (current) use of anticoagulants | CPT/HCPCS: 85610 ==

== ENCOUNTER → 2021-08-15 09:42 | Outpatient (BNVA) | payer MEDICARE, SELFPAY | PROVIDERS: PCP Family Medicine; Referring Provider Family Medicine; Visit Provider Family Medicine | DX: I82.503 Chronic embolism and thrombosis of unspecified deep veins of lower extremity, bilateral (principal) | CPT/HCPCS: 85610 ==

== ENCOUNTER → 2021-08-17 14:36 | Outpatient (BNVA) | payer MEDICARE, SELFPAY | PROVIDERS: PCP Family Medicine; Visit Provider Family Medicine | DX: I82.503 Chronic embolism and thrombosis of unspecified deep veins of lower extremity, bilateral (principal) | CPT/HCPCS: 85610 ==

== ENCOUNTER 2021-08-18 11:06 | Outpatient (CLI) | payer OTHER, MEDICARE, SELFPAY ==
--- NOTE | 2021-08-18 11:28 | US_ITS ---
WS: [id number] ULTRASOUND-GUIDED THERAPEUTIC PARACENTESIS Procedure, risks, and complications have been explained to the patient. Consent is obtained. Utilizing aseptic technique and 1% buffered lidocaine, a small dermatome was made through which a 5 F rench Yueh catheter was inserted. Approximately 5300 ml of clear peritoneal fluid was obtained witho ut difficulty. No complications encountered. US/US paracentesis abd w [id number] IMPRESSION: Uncomplicated paracentesis yielding 5300 ml of peritoneal fluid.
[2021-08-18 11:58] VITALS: BP 136/89; PULSE 70; RESP 18; TEMP 36.1; O2SAT 97; BMI 36.8
[2021-08-18 12:26] LABS: INR 1.57 (0.8-1.2)
[2021-08-18 12:56] VITALS: BP 120/73; PULSE 70; RESP 18; O2SAT 100
[2021-08-18 13:16] LABS: Anion Gap 15.4 (5-19); Blood Urea Nitrogen 6 mg/dL (8-23); Calcium 8.8 mg/dL (8.5-10.5); Carbon Dioxide 29 mmol/L (22-29); Chloride 94 mmol/L (98-107); Glomerular Filtration Rate 215.2 mL/min (90-130); Glucose 134 mg/dL (65-115); Osmolality Calculated 278 mOsm/kg (285-295); Potassium 4.4 mmol/L (3.5-5.1); Sodium 134 mmol/L (136-145)
[2021-08-18 13:35] VITALS: BP 129/73; PULSE 64; RESP 18; O2SAT 97
== END 2021-08-18 11:07 | disposition home or self-care (01) ==
PROVIDERS: Radiology Diagnostic Radiology; PCP Family Medicine; Visit Provider Family Medicine
DX: C18.9 Malignant neoplasm of colon, unspecified (principal); I82.503 Chronic embolism and thrombosis of unspecified deep veins of lower extremity, bilateral; R18.0 Malignant ascites; G89.3 Neoplasm related pain (acute) (chronic)
CPT/HCPCS: 36415; 49083; 80048; 85610

== ENCOUNTER → 2021-08-23 11:33 | Outpatient (BNVA) | payer OTHER, SELFPAY | PROVIDERS: PCP Family Medicine; Referring Provider Family Medicine; Visit Provider Family Medicine | DX: I82.503 Chronic embolism and thrombosis of unspecified deep veins of lower extremity, bilateral (principal) | CPT/HCPCS: 85610 ==

== ENCOUNTER → 2021-08-29 11:26 | Outpatient (BNVA) | payer MEDICARE, SELFPAY | PROVIDERS: PCP Family Medicine; Visit Provider Family Medicine | DX: Z51.81 Encounter for therapeutic drug level monitoring (principal); Z79.01 Long term (current) use of anticoagulants | CPT/HCPCS: 85610 ==

== ENCOUNTER 2021-09-09 15:31 | Inpatient (IN) | payer MEDICARE, SELFPAY ==
[2021-09-09 15:46] VITALS: BP 130/84; PULSE 88; RESP 16; TEMP 36.9; O2SAT 94
--- NOTE | 2021-09-09 16:45 | XRR_ITS ---
PROCEDURE INFORMATION: Exam: XR Chest Exam date and time: 09/09/2021 4:45 PM Age: 66 years old Clinical indication: Shortness of breath; Prior surgery; Surgery date: 6+ months; Additional info: Volume overload TECHNIQUE: Imaging protocol: XR of the chest. Views: 1 view. COMPARISON: CR XR chest 1V portable [id number] 08/02/2021 6:30 PM FINDINGS: The right-sided port remains in place. There is marked cardiomegaly. There are basilar infiltrates. There are bilateral pleural effusions right greater than left. There is no pneumothorax. XR/XR chest 1V portable [id number] IMPRESSION: 1. Marked cardiomegaly. 2. The basilar infiltrates and bilateral pleural effusions. Radiation Dose CTDIVOL = (mGy): DLP = (mGy-cm)
[2021-09-09 17:38] LABS: Basophils # 0.1 10^3/uL (0.0-0.1); Basophils % 0.6 %; Eosinophils # 0.3 10^3/uL (0.0-0.8); Eosinophils % 2.8 %; Hematocrit 43.4 % (42.0-52.0); Hemoglobin 13.1 g/dL (11.7-16.6); Lymphocytes # 1.3 10^3/uL (0.8-4.8); Lymphocytes % 11.8 %; Mean Corpuscular HGB Conc 30.2 g/dL (30.0-36.0); Mean Corpuscular Hemoglobin 27.5 pg (28.0-34.0); Mean Corpuscular Volume 91.2 fl (80-94); Mean Platelet Volume 8.4 fL (7.4-10.4); Monocytes # 1.4 10^3/uL (0.2-0.9); Monocytes % 12.8 %; Neutrophils % 71.7 %; Nucleated Red Blood Cells % 0 %; Platelet Count 310 10^3/cmm (130-400); Red Blood Count 4.76 10^6/uL (4.1-5.3); Red Cell Distribution Width 15.9 % (12.1-15.1); White Blood Count 10.7 10^3/uL (4.0-10.0)
[2021-09-09 18:04] LABS: INR 2.34 (0.8-1.2)
[2021-09-09 18:09] LABS: Partial Thromboplastin Time 46.6 SECONDS (23.9-36.7)
[2021-09-09 18:10] LABS: Alanine Aminotransferase 10 U/L (0-41); Albumin Level 3.2 g/dL (3.5-5.2); Alkaline Phosphatase 83 IU/L (40-130); Aspartate Amino Transferase 19 U/L (0-40); Blood Urea Nitrogen 9 mg/dL (8-23); Calcium 8.1 mg/dL (8.5-10.5); Carbon Dioxide 25 mmol/L (22-29); Chloride 95 mmol/L (98-107); Globulin 3.2 g/dL (1.3-4.6); Glomerular Filtration Rate 166.4 mL/min (90-130); Glucose 130 mg/dL (65-115); Osmolality Calculated 278 mOsm/kg (285-295); Sodium 134 mmol/L (136-145); Total Bilirubin 0.3 mg/dL (0.15-1.2); Total Protein 6.4 g/dL (6.6-8.7)
[2021-09-09 21:17] VITALS: BP 141/96; PULSE 70; RESP 18; O2SAT 95
--- NOTE | 2021-09-09 21:46 | W.ED.GENADLT ---
HPI - General Adult General: Chief complaint: General Medical Stated complaint: FLUID OVERLOAD: SENT BY PCPMARISELA ADMITTED Time Seen by Provider: 09/09/21 19:39 History of Present Illness: HPI narrative: 66-year-old male with a history of congestive heart failure, malignant ascites, history of malignant colon/lung cancer he presents with worsening shortness of breath, leg swelling, and belly swelling over the past several days. He had a paracentesis 3 weeks ago which helped his shortness of breath, abdominal discomfort, and hypoxia some. The swelling is slowly returned. He denies any fever. He denies significant chest pain. He says he has belly pain from distention. He notes he is much more short of breath than usual. Onset (ago): day(s) Location: abdomen Severity: moderate Quality: aching Relieving factors: none Exacerbating factors: movement Associated symptoms: Reports dyspnea, malaise, short of breath and weakness; Deny chest pain, confusion, cough, diaphoresis, fevers/chills, headache(s), palpitations or vomiting Treatments prior to arrival: other Review of Systems Const: Reports: malaise; Denies: diaphoresis Card: Denies: chest pain or palpitations Resp: Reports: dyspnea GI: Denies: vomiting Neuro: Denies: headache(s) or confusion PFSH ED PFSH: Medical History Allergy CHF (congestive heart failure) Colon cancer COPD (chronic obstructive pulmonary disease) Diabetes DVT (deep venous thrombosis) Hypertension Insomnia Neuropathy GENIE (obstructive sleep apnea) Surgical History H/O hemorrhoidectomy Social History Smoking and tobacco status: former smoker Alcohol intake: never Physical Exam Const: COMMON NORMALS: patient oriented x3 and alert GENERAL APPEARANCE: ill appearing and frail appearing HENMT: COMMON NORMALS: normocephalic HEAD & SCALP: normocephalic Chest: COMMONS NORMALS: normal inspection of the chest Resp: EFFORT & INSPECTION: Yes tachypneic and Yes labored AUSCULTATION: rales bilateral and diffuse Cardio: COMMON NORMALS: regular rate and regular rhythm RATE: regular rate RHYTHM: regular rhythm GI: INSPECTION: Yes Anasarca and Yes abdominal distension AUSCULTATION: Yes Hypoactive bowel sounds present PALPATION: Yes Tenderness to palpation present (GI) (Diffuse) Neuro: COMMON NORMALS: patient oriented x3 SENSORIUM/ORIENTATION: Yes alert Course Consultations: Consultation #1: joel Time: 22:05 Vital Signs: Vital signs: Vital Signs Temperature 98.4 F 09/09/21 15:46 Pulse Rate 70 09/09/21 21:17 Respiratory Rate 18 09/09/21 21:17 Blood Pressure 141/96 09/09/21 21:17 Pulse Oximetry 95 09/09/21 21:17 MDM - General Adult MDM Narrative: Medical decision making narrative: 66-year-old gentleman who is actually a hospice patient. He has a history of metastatic colon/lung cancer. He presents with worsening belly distention, shortness of breath, lower extremity swelling, and discomfort generalized. His oxygen saturation is 95% on 4 L, but he is tachypneic, and has labored breathing. His belly is quite distended. Bedside ultrasound reveals a significant amount of ascites. He was sent by his PCP/hospice for potential paracentesis. However, the gentleman is anticoagulated on Coumadin, and we have no interventional radiology over the weekend. He has had to have his belly repeatedly drained. Will admit for medical treatment. We will see about the potential of paracentesis versus placement of intraperitoneal drain. Of course, would like his INR lower for these. Spoke with hospice. They will sign off for now, and if the patient wishes, will reevaluate for going back into hospice service on discharge. Lab Data: Labs: Lab Results 09/09/21 09/09/21 09/09/21 17:30 17:30 17:30 WBC 10.7 10^3/uL H 10 ^3/uL (4.0-10.0) RBC 4.76 10^6/uL 10^6 /uL (4.1-5.3) Hgb 13.1 g/dL g/dL (11.7-16.6) Hct 43.4 % % (42.0-52.0) MCV 91.2 fl fl (80-94) MCH 27.5 pg L pg (28.0-34.0) MCHC 30.2 g/dL g/dL (30.0-36.0) RDW 15.9 % H % (12.1-15.1) Plt Count 310 10^3/cmm 10^3 /cmm (130-400) MPV 8.4 fL fL (7.4-10.4) Neut % (Auto) 71.7 % % Lymph % (Auto) 11.8 % % [place] % (Auto) 12.8 % % Eos % (Auto) 2.8 % % Baso % (Auto) 0.6 % % Neut # (Auto) 7.70 10^3/uL 10^3 /uL (1.8-7.7) Lymph # (Auto) 1.3 10^3/uL 10^3/ uL (0.8-4.8) [place] # (Auto) 1.4 10^3/uL H 10^ 3/uL (0.2-0.9) Eos # (Auto) 0.3 10^3/uL 10^3/ uL (0.0-0.8) Baso # (Auto) 0.1 10^3/uL 10^3/ uL (0.0-0.1) Nucleated RBC % (a uto) 0 % % Nucleated RBCs # 0.0 /100WBC /100W BC PT 26.10 SECONDS H S ECONDS (12.1-14.9) INR 2.34 H (0.8-1.2) APTT 46.6 SECONDS H SE CONDS (23.9-36.7) Sodium 134 mmol/L L mmol /L (136-145) Potassium 4.0 mmol/L mmol/L (3.5-5.1) Chloride 95 mmol/L L mmol/ L (98-107) Carbon Dioxide 25 mmol/L mmol/L (22-29) Anion Gap 18.0 (5-19) BUN 9 mg/dL mg/dL (8-23) Creatinine 0.5 mg/dL L mg/dL (0.7-1.2) GFR Calculation 166.4 mL/min H mL /min (90-130) Glucose 130 mg/dL H mg/dL (65-115) Calculated Osmolal ity 278 mOsm/kg L mOs m/kg (285-295) Calcium 8.1 mg/dL L mg/dL (8.5-10.5) Total Bilirubin 0.3 mg/dL mg/dL (0.15-1.2) Direct Bilirubin 0.20 mg/dL mg/dL (0.00-0.30) AST 19 U/L U/L (0-40) ALT 10 U/L U/L (0-41) Alkaline Phosphata se 83 IU/L IU/L (40-130) Total Protein 6.4 g/dL L g/dL (6.6-8.7) Albumin 3.2 g/dL L g/dL (3.5-5.2) Globulin 3.2 g/dL g/dL (1.3-4.6) Discharge Plan Discharge Patient Disposition: Admitted As Inpatient Clinical Impression: Malignant ascites CHF (congestive heart failure) Qualifiers: Heart failure type: systolic Heart failure chronicity: acute on chronic Qualified Code(s): I50.23 - Acute on chronic systolic (congestive) heart failure Condition: Stable Coding Level of Care Code 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
[2021-09-09] MEDS: FUROsemide 10 mg/mL SDV 10mL 60 MG IVP (22:29)
[2021-09-09 22:33] VITALS: BP 130/83; PULSE 68; RESP 21; O2SAT 95
[2021-09-09 23:30] VITALS: BP 158/94; PULSE 76; RESP 16; TEMP 36.6; O2SAT 97
[2021-09-09 23:35] VITALS: BMI 36.8
[2021-09-09 23:52] VITALS: PULSE 78; RESP 22; O2SAT 95
[2021-09-09 23:57] VITALS: PULSE 84
[2021-09-10] VITALS (15 sets, daily range): BP systolic 125–145; BP diastolic 80–89; PULSE 66–81; RESP 17–20; TEMP 36.7–36.9; O2SAT 93–97
--- NOTE | 2021-09-10 00:36 | PC.NURSE ---
Received report from [facility]. Patient arrived to room at 2335. Patient rates pain at a 8/10. Fentanyl patch R upper shoulder. 12mcg. Will administer PRN pain medications. No other needs voiced at this time.
--- NOTE | 2021-09-10 00:54 | PC.NURSE ---
clarified IV lasix ordered for 09/[address] De Oliveira as patient had received sixty mL in ER. Medication needs to be twelve hours apart. Will hold at this time.
--- NOTE | 2021-09-10 02:55 | P.HP_ITS ---
Providers/Chief Complaint Admitting Physician: Paulette De Oliveira MD Primary Care Provider: Nan Sellers MD Chief Complaint: FLUID OVERLOAD: SENT BY PCPMAR[facility]EL[facility] ADMITTED History of Present Illness Santos Escalera is a 66 year old male with past medical history of stage IV colon cancer on home hospice, DVT, diabetes, CHF and possible COPD who presents to emergency room with complaints of shortness of breath, increasing anasarca and malignant ascites. His last paracentesis was approximately 3 weeks ago.Denies fever, cough, chills,dysuria. Mild abdominal pain + which he attributes to distension. No c/o chets pain, dyspnea, palpitations or sycope at this time. Review of Systems General: Reports: 10 or more systems reviewed and unremarkable except in HPI and below Const: Denies: fever(s), chills or body aches Eyes: Denies: change in vision, blurry vision or photophobia ENMT: Reports: hoarseness; Denies: throat pain, enlarged tonsils, odynophagia or nasal congestion Card: Denies: chest pain, palpitations, irregular heart rhythm, edema, swelling of feet/ankles, lightheadedness, pre-syncope, dyspnea on exertion or orthopnea Resp: Denies: dyspnea, productive cough, non-productive cough, wheezing, stridor, pain on inspiration, change in phlegm color, hemoptysis or chest con gestion GI: Denies: abdominal pain, nausea, vomiting, hematemesis, coffee ground emesis, dysphagia, heartburn, diarrhea, constipation, GI cramping, change in stool character, hematochezia or melena : Denies: flank pain, dysuria, urinary frequency, urinary urgency, urinary hesitancy or hematuria Musc: Denies: neck pain, back pain, extremity pain, joint swelling, joint warmth or deformity Neuro: Denies: headache(s), numbness in extremities, weakness in extremities, sensory changes, difficulty walking, frequent falls, dizziness, vertigo, behavioral changes, Slurred speech present or seizure-like activity Psych: Denies: anxiety, depression, suicidal ideation or homicidal ideation Endo: Denies: polyuria, polydipsia, tired all the time, cold intolerance or hot flashes Oswaldo/Lymph: Denies: easy bruising or easy bleeding Medications/Allergies Home Medications Medication Instructions Recorded Confirmed Last Taken Type albuterol sulfate 2.5 mg INHALATION Q4H PRN #180 ml 10/06/20 08/18/21 08/10/21 Rx miscellaneous medical supply See Rx Instructions MISCELLANEOUS 10/06/20 08/11/21 08/10/21 Rx .COMPLEX #1 ea magnesium 1 tab PO DAILY@0700 01/25/21 08/18/21 08/11/21 History miscellaneous medical supply See Rx Instructions MISCELLANEOUS 02/25/21 08/11/21 08/10/21 Rx .COMPLEX #1 ea Diabetic Shoes #1 ea 04/18/21 08/11/21 08/11/21 Rx albuterol sulfate 90 mcg/actuation 2 puff INHALATION Q6H PRN #8.5 g 06/21/21 08/18/21 08/10/21 Rx aerosol inhaler gabapentin 300 mg capsule 300 mg PO TID PRN 30 Days #90 cap 06/21/21 08/18/21 08/11/21 Rx metformin 500 mg tablet See Rx Instructions .ROUTE 06/21/21 08/18/21 08/11/21 Rx .COMPLEX #60 tablet metoprolol succinate 25 mg 25 mg PO DAILY 30 Days #30 tab 06/21/21 08/18/21 08/11/21 Rx tablet,extended release 24 hr warfarin 4 mg tablet See Rx Instructions .ROUTE 07/21/21 08/23/21 08/14/21 Rx .COMPLEX #60 tab oxycodone 5 mg tablet 5 mg PO TID PRN 30 Days #90 tab 08/01/21 08/18/21 08/11/21 Rx fentanyl 12 mcg/hr transdermal 1 patch TRANSDERMAL Q72H 15 Days 08/04/21 08/18/21 08/11/21 Rx patch #5 ea spironolactone 25 mg tablet 25 mg PO DAILY 30 Days #30 tab 08/04/21 08/18/21 08/11/21 Rx zolpidem 10 mg tablet 10 mg PO .at bedtime 30 Days #30 08/04/21 08/18/21 08/11/21 Rx tab montelukast 10 mg PO DAILY 08/11/21 08/18/21 08/10/21 History amoxicillin 500 mg-potassium 1 tab PO BID 08/17/21 08/18/21 Unknown History clavulanate 125 mg tablet furosemide 40 mg tablet 40 mg PO BID 08/18/21 Unknown History hydromorphone 2 mg tablet 2 mg PO Q4H PRN 7 Days #30 tab 08/30/21 Unknown Rx hyoscyamine sulfate 0.125 mg 0.125 mg SUBLINGUAL Q4H PRN #30 tab 08/30/21 Unknown Rx sublingual tablet lorazepam 2 mg/mL oral concentrate 0.25 mg PO Q4H PRN #30 ml 08/30/21 Unknown Rx warfarin 5 mg tablet 5 mg PO 1400 #30 tab 09/05/21 Unknown Rx Allergies Allergy/AdvReac Type Severity Reaction Status Date / Time aspirin Allergy ALGY-Hives Verified 09/09/21 15:50 morphine Allergy ALGY-Rash Verified 09/09/21 15:50 shellfish derived Allergy hives Verified 09/09/21 15:50 PFSH Acute PFSH: Medical History Allergy CHF (congestive heart failure) Colon cancer COPD (chronic obstructive pulmonary disease) Diabetes DVT (deep venous thrombosis) Hypertension Insomnia Neuropathy GENIE (obstructive sleep apnea) Surgical History H/O hemorrhoidectomy Social History Smoking and tobacco status: former smoker Alcohol intake: never Vitals/I&O/Wt Last Vital Signs Temp 97.9 F 09/09/21 23:30 Pulse 84 09/09/21 23:57 Resp 20 H 09/10/21 00:49 BP 158/94 09/09/21 23:30 Pulse Ox 95 09/10/21 00:49 09/09/21 09/09/21 09/10/21 14:59 22:59 06:59 Output Total 400 / 400 Balance -400 / -400 Weight last 48 hrs Weight 130.181 kg Weight 130.181 kg Physical Exam Narrative: EXAM NARRATIVE: General: No acute distress, AO x3 HEENT: PERRLA, pupils bilaterally equal and reactive, pallors not present Chest: Normal vesicular breath sounds, no added sounds, equal good air entry bilaterally CVS: S1-S2 regular, no murmurs, no tachycardia, no gallops, no rubs Abdomen: Soft, nontender, no organomegaly, bowel sounds present Neuro: No focal deficits, no facial deformity, AO x3, power 5/5 in all limbs Extremities:Anasarca Data : 09/09/21 17:30 09/09/21 17:30 Other Labs: Laboratory Results WBC 10.2 10^3/uL (4.0-10.0) H 09/10/21 02:44 RBC 4.36 10^6/uL (4.1-5.3) 09/10/21 02:44 Hgb 12.1 g/dL (11.7-16.6) 09/10/21 02:44 Hct 40.2 % (42.0-52.0) L 09/10/21 02:44 MCV 92.2 fl (80-94) 09/10/21 02:44 MCH 27.8 pg (28.0-34.0) L 09/10/21 02:44 MCHC 30.1 g/dL (30.0-36.0) 09/10/21 02:44 RDW 15.7 % (12.1-15.1) H 09/10/21 02:44 Plt Count 258 10^3/cmm (130-400) 09/10/21 02:44 MPV 9.7 fL (7.4-10.4) 09/10/21 02:44 Neut % (Auto) 71.1 % 09/10/21 02:44 Lymph % (Auto) 12.0 % 09/10/21 02:44 [place] % (Auto) 13.8 % 09/10/21 02:44 Eos % (Auto) 2.1 % 09/10/21 02:44 Baso % (Auto) 0.6 % 09/10/21 02:44 Neut # (Auto) 7.28 10^3/uL (1.8-7.7) 09/10/21 02:44 Lymph # (Auto) 1.2 10^3/uL (0.8-4.8) 09/10/21 02:44 [place] # (Auto) 1.4 10^3/uL (0.2-0.9) H 09/10/21 02:44 Eos # (Auto) 0.2 10^3/uL (0.0-0.8) 09/10/21 02:44 Baso # (Auto) 0.1 10^3/uL (0.0-0.1) 09/10/21 02:44 Nucleated RBC % (auto) 0 % 09/10/21 02:44 Nucleated RBCs # 0.0 /100WBC 09/10/21 02:44 PT 26.10 SECONDS (12.1-14.9) H 09/09/21 17:30 INR 2.34 (0.8-1.2) H 09/09/21 17:30 APTT 46.6 SECONDS (23.9-36.7) H 09/09/21 17:30 Sodium 134 mmol/L (136-145) L 09/09/21 17:30 Potassium 4.0 mmol/L (3.5-5.1) 09/09/21 17:30 Chloride 95 mmol/L (98-107) L 09/09/21 17:30 Carbon Dioxide 25 mmol/L (22-29) 09/09/21 17:30 Anion Gap 18.0 (5-19) 09/09/21 17:30 BUN 9 mg/dL (8-23) 09/09/21 17:30 Creatinine 0.5 mg/dL (0.7-1.2) L 09/09/21 17:30 GFR Calculation 166.4 mL/min (90-130) H 09/09/21 17:30 Glucose 130 mg/dL (65-115) H 09/09/21 17:30 Calculated Osmolality 278 mOsm/kg (285-295) L 09/09/21 17:30 Calcium 8.1 mg/dL (8.5-10.5) L 09/09/21 17:30 Total Bilirubin 0.3 mg/dL (0.15-1.2) 09/09/21 17:30 Direct Bilirubin 0.20 mg/dL (0.00-0.30) 09/09/21 17:30 AST 19 U/L (0-40) 09/09/21 17:30 ALT 10 U/L (0-41) 09/09/21 17:30 Alkaline Phosphatase 83 IU/L (40-130) 09/09/21 17:30 Total Protein 6.4 g/dL (6.6-8.7) L 09/09/21 17:30 Albumin 3.2 g/dL (3.5-5.2) L 09/09/21 17:30 Globulin 3.2 g/dL (1.3-4.6) 09/09/21 17:30 Impressions Chest X-Ray 09/09/21 16:45 IMPRESSION: 1. Marked cardiomegaly. 2. The basilar infiltrates and bilateral pleural effusions. Radiation Dose CTDIVOL = (mGy): DLP = (mGy-cm) A&P Assessment and plan (1) Malignant ascites: Status: Acute (2) Colon cancer: Status: Acute Qualifiers: Colon location: unspecified part of colon Qualified Code(s): C18.9 - Malignant neoplasm of colon, unspecified (3) CHF (congestive heart failure): Status: Acute Qualifiers: Heart failure type: systolic Heart failure chronicity: acute on chronic Qualified Code(s): I50.23 - Acute on chronic systolic (congestive) heart failure Additional A&P Information Patient with CHF, malignant ascites and anasarca on home hospice presenting with worsening dyspnea, likely related to increased abdominal distension and pleural effusions. Patient will likely need paracentesis vs placement of intraperitoneal drain for frequent drainage and comfort. Lasix 40mg iv q12h in the nterim to help with diuresis will likely need restarting if hospice services Hold COumadin to allow for procedures. Recheck INR with am labs Attestations Medical Necessity Statement*: Anticipate less than 2 midnight stay for above defied care Coding Level of Care Code Acute Feather Separator for Chg Fwd Diagnoses Malignant ascites R18.0 Colon cancer C18.9 Colon location: unspecified part of colon CHF (congestive heart failure) I50.23 Heart failure type: systolic Heart failure chronicity: acute on chronic
--- NOTE | 2021-09-10 05:10 | PC.NURSE ---
patient rates pain at a 03/17/ PRN medication at this time.
[2021-09-10 05:40] LABS: Basophils # 0.1 10^3/uL (0.0-0.1); Basophils % 0.6 %; Eosinophils # 0.2 10^3/uL (0.0-0.8); Eosinophils % 2.1 %; Hematocrit 40.2 % (42.0-52.0); Hemoglobin 12.1 g/dL (11.7-16.6); Lymphocytes # 1.2 10^3/uL (0.8-4.8); Mean Corpuscular HGB Conc 30.1 g/dL (30.0-36.0); Mean Corpuscular Hemoglobin 27.8 pg (28.0-34.0); Mean Corpuscular Volume 92.2 fl (80-94); Mean Platelet Volume 9.7 fL (7.4-10.4); Monocytes # 1.4 10^3/uL (0.2-0.9); Monocytes % 13.8 %; Neutrophils # 7.28 10^3/uL (1.8-7.7); Neutrophils % 71.1 %; Nucleated Red Blood Cells % 0 %; Platelet Count 258 10^3/cmm (130-400); Red Blood Count 4.36 10^6/uL (4.1-5.3); Red Cell Distribution Width 15.7 % (12.1-15.1); White Blood Count 10.2 10^3/uL (4.0-10.0)
[2021-09-10 06:25] LABS: Alanine Aminotransferase 10 U/L (0-41); Alkaline Phosphatase 80 IU/L (40-130); Anion Gap 14.8 (5-19); Aspartate Amino Transferase 20 U/L (0-40); Blood Urea Nitrogen 8 mg/dL (8-23); Calcium 8.2 mg/dL (8.5-10.5); Carbon Dioxide 30 mmol/L (22-29); Chloride 94 mmol/L (98-107); Globulin 3.5 g/dL (1.3-4.6); Glomerular Filtration Rate 166.4 mL/min (90-130); Glucose 111 mg/dL (65-115); Osmolality Calculated 279 mOsm/kg (285-295); Potassium 3.8 mmol/L (3.5-5.1); Sodium 135 mmol/L (136-145); Total Bilirubin 0.4 mg/dL (0.15-1.2); Total Protein 6.5 g/dL (6.6-8.7)
[2021-09-10] MEDS: spironolactone 25 mg Tablet PO (08:55)
[2021-09-10] MEDS: metoprolol succinate ER (24 HR) 25 mg Tablet PO (08:55)
[2021-09-10] MEDS: pantoprazole DR 40 mg Tablet PO (08:55)
[2021-09-10] MEDS: FUROsemide 10 mg/mL SDV 4mL 40 MG IVP ×2 (11:21→22:49)
[2021-09-10 11:54] LABS: INR 1.99 (0.8-1.2)
[2021-09-10] MEDS: HYDROmorphone 1 mg/mL INJ 1 mL 0.5 MG IVP ×3 (14:29→23:33)
--- NOTE | 2021-09-10 14:53 | PM.PN ---
Subjective Subjective: Interval history: Patient was seen this morning, he tells me he is on hospice, for his stage IV colon cancer, continues to have abdominal distention, abdominal tightness, Vitals/I&O/Wt Last Vital Signs Temp 98.2 F 09/10/21 11:20 Pulse 75 09/10/21 11:20 Resp 18 09/10/21 14:29 BP 138/86 09/10/21 11:20 Pulse Ox 94 09/10/21 11:20 09/09/21 09/10/21 09/10/21 22:59 06:59 14:59 Intake Total 120 / 120 Output Total 575 / 575 400 / 400 Balance -575 / -575 -280 / -280 Weight last 48 hrs Weight 129.727 kg Weight 130.181 kg Weight 130.181 kg Physical Exam Const: COMMON NORMALS: no acute distress and patient oriented x3 Resp: COMMON NORMALS: normal respiratory effort, No retractions, No use of accessory muscles and clear to auscultation bilaterally AUSCULTATION: clear to auscultation bilaterally Cardio: COMMON NORMALS: regular rate, regular rhythm, S1 normal heart sound present and S2 normal heart sound present RATE: regular rate RHYTHM: regular rhythm HEART SOUNDS: S1 normal heart sound present and S2 normal heart sound present GI: INSPECTION: Yes normal to inspection and Yes abdominal distension PALPATION: Yes Firmness to palpation present (GI), Yes Tenderness to palpation present (GI) (Generalized tenderness), No Guarding due to palpation present (GI), No Rigid due to palpation and Yes Ascites present Extremity: COMMON NORMALS: no pedal edema Neuro: COMMON NORMALS: patient oriented x3 Psych: COMMON NORMALS: mental status grossly normal Data : 09/10/21 02:44 09/10/21 02:44 A&P Assessment and plan (1) Malignant ascites: Status: Acute (2) Colon cancer: Status: Acute Qualifiers: Colon location: unspecified part of colon Qualified Code(s): C18.9 - Malignant neoplasm of colon, unspecified (3) CHF (congestive heart failure): Status: Acute Qualifiers: Heart failure type: systolic Heart failure chronicity: acute on chronic Qualified Code(s): I50.23 - Acute on chronic systolic (congestive) heart failure Additional A&P Information Patient with CHF, malignant ascites and anasarca on home hospice presenting with worsening dyspnea, likely related to increased abdominal distension and pleural effusions. Patient will likely need paracentesis vs placement of intraperitoneal drain for frequent drainage and comfort. Lasix 40mg iv q12h in the nterim to help with diuresis will likely need restarting if hospice services Hold COumadin to allow for procedures, switch to therapeutic Lovenox. Recheck INR with am labs Attestations Medical Necessity Statement*: Patient requires hospitalization for malignant ascites, CHF exacerbation, diastolic, Coding Level of Care Code Acute Steam Press Tender for g Fwd Diagnoses Malignant ascites R18.0 Colon cancer C18.9 Colon location: unspecified part of colon CHF (congestive heart failure) I50.23 Heart failure type: systolic Heart failure chronicity: acute on chronic
[2021-09-10] MEDS: enoxaparin 120 mg/0.8 mL Syringe SUBCUT (16:19)
--- NOTE | 2021-09-10 19:34 | PC.NURSE ---
Shift report received from Lesvia NUÑEZ. Patient sitting on sit of bed/watching TV. Patient rates pain at a 8/10/will administer PRN per request. Fentanyl patch 12mcgs R upper shoulder. O2 4L NC. No other needs voiced at this time.
[2021-09-10] MEDS: zolpidem 5 mg Tablet 10 MG PO (22:49)
[2021-09-11] VITALS (13 sets, daily range): BP systolic 122–147; BP diastolic 83–92; PULSE 69–84; RESP 14–23; TEMP 36.4–37.1; O2SAT 91–97
[2021-09-11] MEDS: enoxaparin 120 mg/0.8 mL Syringe SUBCUT ×2 (03:45→14:51)
[2021-09-11] MEDS: HYDROmorphone 1 mg/mL INJ 1 mL 0.5 MG IVP (03:47)
[2021-09-11 06:09] LABS: Anion Gap 11.6 (5-19); Blood Urea Nitrogen 8 mg/dL (8-23); Calcium 8.3 mg/dL (8.5-10.5); Carbon Dioxide 34 mmol/L (22-29); Chloride 94 mmol/L (98-107); Glomerular Filtration Rate 166.4 mL/min (90-130); Glucose 122 mg/dL (65-115); Osmolality Calculated 282 mOsm/kg (285-295); Potassium 3.6 mmol/L (3.5-5.1); Sodium 136 mmol/L (136-145)
[2021-09-11] MEDS: metoprolol succinate ER (24 HR) 25 mg Tablet PO (11:04)
[2021-09-11] MEDS: spironolactone 25 mg Tablet PO (11:04)
[2021-09-11] MEDS: fentaNYL 12 mcg Patch 1 PATCH TRANSDERMA (11:04)
[2021-09-11] MEDS: pantoprazole DR 40 mg Tablet PO (11:04)
[2021-09-11] MEDS: FUROsemide 10 mg/mL SDV 4mL 40 MG IVP ×2 (11:05→21:46)
--- NOTE | 2021-09-11 12:30 | PM.PN ---
Subjective Subjective: Interval history: Patient is abdominal swelling has improved, his lower extremity edema persists, still a bit short of breath, is on 5 L, no nausea, no vomiting, chest pain, palpitations, pain is controlled Vitals/I&O/Wt Last Vital Signs Temp 97.6 F 09/11/21 11:29 Pulse 76 09/11/21 11:29 Resp 19 H 09/11/21 11:29 BP 147/85 09/11/21 11:29 Pulse Ox 92 09/11/21 11:29 09/10/21 09/11/21 09/11/21 22:59 06:59 14:59 Intake Total 240 / 360 240 / 600 480 / 480 Output Total 300 / 700 800 / 1500 Balance -60 / -340 -560 / -900 480 / 480 Weight last 48 hrs Weight 128.503 kg Weight 129.727 kg Weight 130.181 kg Weight 130.181 kg Physical Exam Const: COMMON NORMALS: no acute distress and patient oriented x3 Resp: COMMON NORMALS: normal respiratory effort, No retractions, No use of accessory muscles and clear to auscultation bilaterally AUSCULTATION: clear to auscultation bilaterally Cardio: COMMON NORMALS: regular rate, regular rhythm, S1 normal heart sound present and S2 normal heart sound present RATE: regular rate RHYTHM: regular rhythm HEART SOUNDS: S1 normal heart sound present and S2 normal heart sound present GI: COMMON NORMALS: non-tender INSPECTION: Yes abdominal distension AUSCULTATION: Yes normoactive bowel sounds Extremity: COMMON NORMALS: no pedal edema Neuro: COMMON NORMALS: patient oriented x3 Psych: COMMON NORMALS: mental status grossly normal Data : 09/10/21 02:44 09/11/21 04:32 A&P Assessment and plan (1) Malignant ascites: Status: Acute (2) Colon cancer: Status: Acute Qualifiers: Colon location: unspecified part of colon Qualified Code(s): C18.9 - Malignant neoplasm of colon, unspecified (3) CHF (congestive heart failure): Status: Acute Qualifiers: Heart failure type: systolic Heart failure chronicity: acute on chronic Qualified Code(s): I50.23 - Acute on chronic systolic (congestive) heart failure Additional A&P Information Patient with CHF, malignant ascites and anasarca on home hospice presenting with worsening dyspnea, likely related to increased abdominal distension and pleural effusions. Patient will likely need paracentesis vs placement of intraperitoneal drain for frequent drainage and comfort. Lasix 40mg iv q12h i, with metolazone to help with diuresis Currently on home hospice Hold COumadin to allow for procedures, switch to therapeutic Lovenox. Recheck INR with am labs Will need to consult interventional radiology tomorrow morning for paracentesis Attestations Medical Necessity Statement*: Patient requires hospitalization for malignant ascites, fluid overload Coding Level of Care Code Acute Weight Tester for Chg Fwd Diagnoses Malignant ascites R18.0 Colon cancer C18.9 Colon location: unspecified part of colon CHF (congestive heart failure) I50.23 Heart failure type: systolic Heart failure chronicity: acute on chronic
[2021-09-11] MEDS: metOLazone 5 MG Tablet 10 MG PO (12:50)
[2021-09-11] MEDS: oxyCODONE 5 mg IR Tab/Cap PO ×2 (12:50→21:44)
[2021-09-11] MEDS: LORazepam 0.5 mg Tablet 0.25 MG PO ×2 (15:21→17:50)
[2021-09-11] MEDS: zolpidem 5 mg Tablet 10 MG PO (20:53)
[2021-09-12] VITALS (12 sets, daily range): BP systolic 119–136; BP diastolic 81–88; PULSE 66–81; RESP 16–20; TEMP 36.4–37; O2SAT 92–96
[2021-09-12] MEDS: enoxaparin 120 mg/0.8 mL Syringe SUBCUT ×2 (03:13→15:40)
[2021-09-12 06:26] LABS: Anion Gap 16.1 (5-19); Blood Urea Nitrogen 8 mg/dL (8-23); Calcium 8.4 mg/dL (8.5-10.5); Carbon Dioxide 33 mmol/L (22-29); Chloride 88 mmol/L (98-107); Glomerular Filtration Rate 134.8 mL/min (90-130); Glucose 133 mg/dL (65-115); Osmolality Calculated 278 mOsm/kg (285-295); Potassium 3.1 mmol/L (3.5-5.1); Sodium 134 mmol/L (136-145)
[2021-09-12] MEDS: metoprolol succinate ER (24 HR) 25 mg Tablet PO (08:31)
[2021-09-12] MEDS: spironolactone 25 mg Tablet PO (08:31)
[2021-09-12] MEDS: pantoprazole DR 40 mg Tablet PO (08:31)
[2021-09-12] MEDS: oxyCODONE 5 mg IR Tab/Cap PO ×2 (08:31→18:13)
--- NOTE | 2021-09-12 10:35 | PC.SOCIAL ---
IMM update IMM updated with patient. Copy Pg two provided. Initialled, dated, timed and placed in chart.
[2021-09-12] MEDS: lidocaine 1% 5 ML in potassium chloride premix 100 ML 25 ML IV (11:06)
[2021-09-12] MEDS: FUROsemide 10 mg/mL SDV 4mL 40 MG IVP ×2 (11:07→23:03)
--- NOTE | 2021-09-12 11:39 | US_ITS ---
WS: [id number] ULTRASOUND-GUIDED THERAPEUTIC PARACENTESIS Procedure, risks, and complications have been explained to the patient. Consent is obtained. Utilizing aseptic technique and 1% buffered lidocaine, a small dermatome was made through which a 5 F rench Yueh catheter was inserted. Approximately 3200 ml of dark yellow peritoneal fluid was obtained without difficulty. No complications encountered. US/US paracentesis abd w [id number] IMPRESSION: Uncomplicated paracentesis yielding 4200 ml of peritoneal fluid.
--- NOTE | 2021-09-12 11:42 | P.PN_ITS ---
Subjective Subjective: Interval history: Patient was seen and examined this morning,s/p paracentesis with 4.2 Ls fluid removed. Patient tolerated the procedure well. Medications: Reviewed: Yes Vitals/I&O/Wt Last Vital Signs Temp 98.1 F 09/12/21 10:55 Pulse 70 09/12/21 10:55 Resp 16 09/12/21 10:55 BP 119/81 09/12/21 10:55 Pulse Ox 92 09/12/21 10:55 09/11/21 09/12/21 09/12/21 22:59 06:59 14:59 Intake Total 200 / 930 360 / 1290 Output Total 1200 / 1200 1375 / 2575 Balance -1000 / -270 -1015 / -1285 Weight last 48 hrs Weight 128.503 kg Physical Exam Const: COMMON NORMALS: patient oriented x3 HENMT: COMMON NORMALS: normocephalic and atraumatic HEAD & SCALP: normocephalic and atraumatic Resp: OTHER: Diminished air entry b/l Cardio: COMMON NORMALS: regular rate, regular rhythm, S1 normal heart sound present, S2 normal heart sound present, No gallops present (Cardio), No murmurs present (Cardio), No rub (Cardio) and Peripheral pulses 2+ throughout RATE: regular rate RHYTHM: regular rhythm HEART SOUNDS: S1 normal heart sound present and S2 normal heart sound present PERIPHERAL PULSES: Peripheral pulses 2+ throughout GI: OTHER: Abdominal distension with fluid thrills present. Extremity: COMMON NORMALS: no clubbing, cyanosis or edema and no pedal edema Neuro: COMMON NORMALS: patient oriented x3 Data : 09/10/21 02:44 09/12/21 04:20 A&P Assessment and plan (1) Malignant ascites: s/p Ultrasound guided paracentesis with 4.2 Ls fluid removed. Continue Lasix 40 mg I.V Q12 H daily as well as spironlactone 25 mg po daily Patient tolerated the procedure well. Status: Acute (2) Colon cancer: Status: Acute Qualifiers: Colon location: unspecified part of colon Qualified Code(s): C18.9 - Malignant neoplasm of colon, unspecified (3) CHF (congestive heart failure): HFrEF Currently compensated Status: Acute Qualifiers: Heart failure chronicity: acute on chronic Heart failure type: systolic Qualified Code(s): I50.23 - Acute on chronic systolic (congestive) heart failure (4) Hypertension: Status: Acute Qualifiers: Hypertension type: essential hypertension Qualified Code(s): I10 - Essential (primary) hypertension (5) DVT (deep venous thrombosis): Continue Lovenox Status: Acute Qualifiers: DVT location: lower extremity Affected thrombotic vein of extremity: unspecified vein of extremity Chronicity: chronic Laterality: bilateral Qualified Code(s): I82.503 - Chronic embolism and thrombosis of unspecified deep veins of lower extremity, bilateral (6) Pleural effusion: B/L 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 Follow u/s Chest follow xray chest. Status: Acute Additional A&P Information Patient with CHF, malignant ascites and anasarca on home hospice presenting with worsening dyspnea, likely related to increased abdominal distension and pleural effusions. Patient will likely need paracentesis vs placement of intraperitoneal drain for frequent drainage and comfort. Lasix 40mg iv q12h i, with metolazone to help with diuresis Currently on home hospice Hold COumadin to allow for procedures, switch to therapeutic Lovenox. Recheck INR with am labs Will need to consult interventional radiology tomorrow morning for paracentesis Attestations Medical Necessity Statement*: Patient needs to be in hospital for the management symptomatic ascites. Coding Level of Care Code Acute Carbon Paper Machine Operator for Chg Fwd Diagnoses Malignant ascites R18.0 Colon cancer C18.9 Colon location: unspecified part of colon CHF (congestive heart failure) I50.23 Heart failure chronicity: acute on chronic Heart failure type: systolic Hypertension I10 Hypertension type: essential hypertension DVT (deep venous thrombosis) I82.503 DVT location: lower extremity Affected thrombotic vein of extremity: unspecified vein of extremity Chronicity: chronic Laterality: bilateral Pleural effusion J90
[2021-09-12] MEDS: ondansetron 2 mg/ML SDV 2 mL 4 MG IVP (12:34)
[2021-09-12 13:55] LABS: INR 1.62 (0.8-1.2)
[2021-09-12] MEDS: zolpidem 5 mg Tablet 10 MG PO (20:24)
[2021-09-13] VITALS (14 sets, daily range): BP systolic 114–166; BP diastolic 64–92; PULSE 58–97; RESP 16–20; TEMP 36.5–37.1; O2SAT 91–98; BMI 34.7
[2021-09-13] MEDS: enoxaparin 120 mg/0.8 mL Syringe SUBCUT ×2 (04:26→15:31)
--- NOTE | 2021-09-13 06:00 | XR_ITS ---
WS: [id number] Exam: XR chest 1V portable [id number] Date/Time of Exam: 09/13/2021 6:34 AM Reason For Exam: SOB Comparison 09/09/2021. Marked cardiac enlargement unchanged. Bibasal pleural effusions noted. Effusion on the right has impr tyson. There is compressive atelectasis of both lower lobes. No pneumothorax is noted. A right-sided s ubclavian port ends at the cavoatrial junction. Regional bony structures are intact. The mediastinum is not widened. XR/XR chest 1V portable [id number] IMPRESSION: 1. Bibasal pleural effusions and compressive atelectasis of both lower lobes. E ffusion on the right has improved. 2. Marked cardiac enlargement unchanged.
[2021-09-13 06:10] LABS: Basophils # 0.1 10^3/uL (0.0-0.1); Basophils % 0.4 %; Eosinophils # 0.1 10^3/uL (0.0-0.8); Eosinophils % 0.9 %; Hemoglobin 14.2 g/dL (11.7-16.6); Lymphocytes # 1.5 10^3/uL (0.8-4.8); Lymphocytes % 12.5 %; Mean Corpuscular HGB Conc 30.9 g/dL (30.0-36.0); Mean Corpuscular Hemoglobin 27.2 pg (28.0-34.0); Mean Corpuscular Volume 88.1 fl (80-94); Mean Platelet Volume 9.5 fL (7.4-10.4); Monocytes # 1.8 10^3/uL (0.2-0.9); Monocytes % 15.3 %; Neutrophils # 8.22 10^3/uL (1.8-7.7); Neutrophils % 70.7 %; Nucleated Red Blood Cells % 0 %; Platelet Count 398 10^3/cmm (130-400); Red Blood Count 5.22 10^6/uL (4.1-5.3); Red Cell Distribution Width 15.6 % (12.1-15.1); White Blood Count 11.6 10^3/uL (4.0-10.0)
[2021-09-13 06:30] LABS: Alanine Aminotransferase 13 U/L (0-41); Albumin Level 3.4 g/dL (3.5-5.2); Alkaline Phosphatase 94 IU/L (40-130); Anion Gap 19.9 (5-19); Aspartate Amino Transferase 24 U/L (0-40); Blood Urea Nitrogen 11 mg/dL (8-23); Calcium 8.5 mg/dL (8.5-10.5); Carbon Dioxide 32 mmol/L (22-29); Chloride 85 mmol/L (98-107); Globulin 3.5 g/dL (1.3-4.6); Glomerular Filtration Rate 134.8 mL/min (90-130); Glucose 133 mg/dL (65-115); Osmolality Calculated 277 mOsm/kg (285-295); Potassium 3.9 mmol/L (3.5-5.1); Sodium 133 mmol/L (136-145); Total Bilirubin 0.5 mg/dL (0.15-1.2); Total Protein 6.9 g/dL (6.6-8.7)
[2021-09-13 06:37] LABS: INR 1.59 (0.8-1.2)
[2021-09-13] MEDS: oxyCODONE 5 mg IR Tab/Cap PO ×2 (07:58→13:47)
[2021-09-13] MEDS: pantoprazole DR 40 mg Tablet PO (07:59)
[2021-09-13] MEDS: metoprolol succinate ER (24 HR) 25 mg Tablet PO (07:59)
[2021-09-13] MEDS: spironolactone 25 mg Tablet PO (07:59)
[2021-09-13] MEDS: FUROsemide 10 mg/mL SDV 4mL 40 MG IVP ×2 (11:09→22:51)
--- NOTE | 2021-09-13 19:57 | US_ITS ---
WS: [id number] Ultrasound chest, bilateral. HISTORY: Evaluate for effusions. COMPARISON: Chest radiograph 09/09/2021. Small RIGHT pleural effusion. Atelectatic lung is noted floating within the effusion. There is a slightly larger LEFT pleural effus ion with atelectatic lung. Mild pleural thickening is noted bilaterally. US/US chest [id number] IMPRESSION: Small bilateral pleural effusions, LEFT greater than RIGHT. Each of these pleur al effusions contains mobile atelectatic lung.
--- NOTE | 2021-09-13 20:03 | PM.PN ---
Subjective Subjective: Interval history: Patient was seen and examined this morning, still has significant bilateral lower extremity swelling,US chest:Small bilateral pleural effusions, LEFT greater than RIGHT. XR chest:Effusion on the right has improved. His other vitals and labs have been reviewed. Medications: Reviewed: Yes Vitals/I&O/Wt Last Vital Signs Temp 98.0 F 09/13/21 17:15 Pulse 58 L 09/13/21 17:15 Resp 16 09/13/21 19:52 BP 166/90 09/13/21 17:15 Pulse Ox 95 09/13/21 19:52 09/13/21 09/13/21 09/13/21 06:59 14:59 22:59 Intake Total 360 / 1105 120 / 120 360 / 480 Output Total 625 / 2300 700 / 700 150 / 850 Balance -265 / -1195 -580 / -580 210 / -370 Weight last 48 hrs Weight 122.697 kg Physical Exam Const: COMMON NORMALS: patient oriented x3 HENMT: COMMON NORMALS: normocephalic and atraumatic HEAD & SCALP: normocephalic and atraumatic Resp: OTHER: Diminished air entry b/l Cardio: COMMON NORMALS: regular rate, regular rhythm, S1 normal heart sound present, S2 normal heart sound present, No gallops present (Cardio), No murmurs present (Cardio), No rub (Cardio) and Peripheral pulses 2+ throughout RATE: regular rate RHYTHM: regular rhythm HEART SOUNDS: S1 normal heart sound present and S2 normal heart sound present PERIPHERAL PULSES: Peripheral pulses 2+ throughout GI: COMMON NORMALS: Normal to inspection, nondistended, normoactive bowel sounds present, Soft to palpation, non-tender and No hepatosplenomegaly present PALPATION: Yes Soft to palpation and Yes No hepatosplenomegaly present Extremity: COMMON NORMALS: no clubbing, cyanosis or edema and no pedal edema Neuro: COMMON NORMALS: patient oriented x3 Data : 09/13/21 04:45 09/13/21 04:45 A&P Assessment and plan (1) Malignant ascites: s/p Ultrasound guided paracentesis with 4.2 Ls fluid removed. Continue Lasix 40 mg I.V Q12 H daily as well as spironlactone 25 mg po daily Patient tolerated the procedure well. Status: Acute (2) Colon cancer: Status: Acute Qualifiers: Colon location: unspecified part of colon Qualified Code(s): C18.9 - Malignant neoplasm of colon, unspecified (3) CHF (congestive heart failure): HFrEF Currently compensated Continue Lasix 40 mg IV every 12 hours daily Status: Acute Qualifiers: Heart failure type: systolic Heart failure chronicity: acute on chronic Qualified Code(s): I50.23 - Acute on chronic systolic (congestive) heart failure (4) Hypertension: Status: Acute Qualifiers: Hypertension type: essential hypertension Qualified Code(s): I10 - Essential (primary) hypertension (5) DVT (deep venous thrombosis): Continue Lovenox Status: Acute Qualifiers: DVT location: lower extremity Affected thrombotic vein of extremity: unspecified vein of extremity Chronicity: chronic Laterality: bilateral Qualified Code(s): I82.503 - Chronic embolism and thrombosis of unspecified deep veins of lower extremity, bilateral (6) Pleural effusion: B/L 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 US chest:Small bilateral pleural effusions, LEFT greater than RIGHT. XR chest:Effusion on the right has improved. Continue IV diuresis Status: Acute Additional A&P Information Patient with CHF, malignant ascites and anasarca on home hospice presenting with worsening dyspnea, likely related to increased abdominal distension and pleural effusions. Patient will likely need paracentesis vs placement of intraperitoneal drain for frequent drainage and comfort. Lasix 40mg iv q12h i, with metolazone to help with diuresis Currently on home hospice Hold COumadin to allow for procedures, switch to therapeutic Lovenox. Recheck INR with am labs Will need to consult interventional radiology tomorrow morning for paracentesis Attestations Medical Necessity Statement*: Patient needs to be in hospital for management of, symptomatic ascites, significant bilateral lower extremity swelling, need for IV diuresis. Coding Level of Care Code Acute Hydro Station Operator for Chg Fwd Diagnoses Malignant ascites R18.0 Colon cancer C18.9 Colon location: unspecified part of colon CHF (congestive heart failure) I50.23 Heart failure type: systolic Heart failure chronicity: acute on chronic Hypertension I10 Hypertension type: essential hypertension DVT (deep venous thrombosis) I82.503 DVT location: lower extremity Affected thrombotic vein of extremity: unspecified vein of extremity Chronicity: chronic Laterality: bilateral Pleural effusion J90
[2021-09-13] MEDS: zolpidem 5 mg Tablet 10 MG PO (21:34)
[2021-09-14] VITALS: BP 145/96; PULSE 86; RESP 22; TEMP 36.6; O2SAT 91
[2021-09-14] MEDS: enoxaparin 120 mg/0.8 mL Syringe SUBCUT (03:32)
[2021-09-14] MEDS: acetaminophen 325 mg Tablet 650 MG PO (03:36)
[2021-09-14 04:00] VITALS: BP 132/68; PULSE 76; RESP 18; TEMP 36.9; O2SAT 94
[2021-09-14 06:23] LABS: Basophils % 0.4 %; Eosinophils # 0.1 10^3/uL (0.0-0.8); Eosinophils % 1.2 %; Hematocrit 40.2 % (42.0-52.0); Hemoglobin 12.6 g/dL (11.7-16.6); Lymphocytes # 1.1 10^3/uL (0.8-4.8); Mean Corpuscular HGB Conc 31.3 g/dL (30.0-36.0); Mean Corpuscular Hemoglobin 27.2 pg (28.0-34.0); Mean Corpuscular Volume 86.8 fl (80-94); Mean Platelet Volume 9.6 fL (7.4-10.4); Monocytes % 18.8 %; Neutrophils # 7.46 10^3/uL (1.8-7.7); Neutrophils % 69.3 %; Nucleated Red Blood Cells % 0 %; Platelet Count 348 10^3/cmm (130-400); Red Blood Count 4.63 10^6/uL (4.1-5.3); Red Cell Distribution Width 15.9 % (12.1-15.1); White Blood Count 10.8 10^3/uL (4.0-10.0)
[2021-09-14 06:29] LABS: INR 1.32 (0.8-1.2)
[2021-09-14 06:37] LABS: Alanine Aminotransferase 14 U/L (0-41); Albumin Level 3.1 g/dL (3.5-5.2); Alkaline Phosphatase 91 IU/L (40-130); Anion Gap 17.2 (5-19); Aspartate Amino Transferase 21 U/L (0-40); Blood Urea Nitrogen 12 mg/dL (8-23); Calcium 8.4 mg/dL (8.5-10.5); Carbon Dioxide 35 mmol/L (22-29); Chloride 82 mmol/L (98-107); Globulin 3.2 g/dL (1.3-4.6); Glomerular Filtration Rate 134.8 mL/min (90-130); Glucose 141 mg/dL (65-115); Osmolality Calculated 274 mOsm/kg (285-295); Potassium 3.2 mmol/L (3.5-5.1); Sodium 131 mmol/L (136-145); Total Bilirubin 0.7 mg/dL (0.15-1.2); Total Protein 6.3 g/dL (6.6-8.7)
[2021-09-14 07:11] VITALS: BP 133/89; PULSE 78; RESP 18; TEMP 36.6; O2SAT 93
[2021-09-14 07:23] VITALS: PULSE 76; RESP 17; O2SAT 93
[2021-09-14] MEDS: metoprolol succinate ER (24 HR) 25 mg Tablet PO (08:39)
[2021-09-14] MEDS: lidocaine 1% 5 ML in potassium chloride premix 100 ML 25 ML IV (08:39)
[2021-09-14] MEDS: spironolactone 25 mg Tablet PO (08:39)
[2021-09-14] MEDS: pantoprazole DR 40 mg Tablet PO (08:39)
[2021-09-14 10:00] VITALS: BMI 34.7
--- NOTE | 2021-09-14 10:11 | PM.DCS ---
Discharge Providers Date of Admission: 09/09/21 23:04 Date of Discharge: September 14, 2021 Attending Provider at Admission: Paulette De Oliveira MD Attending Provider at Discharge: Garland Alfaro MD Primary Care Provider: Nan Sellers MD Diagnoses at Discharge Discharge Diagnosis (1) Malignant ascites: Status: Acute (2) Colon cancer: Status: Acute Qualifiers: Colon location: unspecified part of colon Qualified Code(s): C18.9 - Malignant neoplasm of colon, unspecified (3) CHF (congestive heart failure): Status: Acute Qualifiers: Heart failure chronicity: acute on chronic Heart failure type: systolic Qualified Code(s): I50.23 - Acute on chronic systolic (congestive) heart failure (4) Hypertension: Status: Acute Qualifiers: Hypertension type: essential hypertension Qualified Code(s): I10 - Essential (primary) hypertension (5) DVT (deep venous thrombosis): Status: Acute Qualifiers: Affected thrombotic vein of extremity: unspecified vein of extremity Chronicity: chronic DVT location: lower extremity Laterality: bilateral Qualified Code(s): I82.503 - Chronic embolism and thrombosis of unspecified deep veins of lower extremity, bilateral (6) Pleural effusion: Status: Acute Reason for Visit Reason for Visit: FLUID OVERLOAD: SENT BY PCPMARISELA ADMITTED Hospital Course Hospital Course 66 year old male with past medical history of stage IV colon cancer on home hospice, DVT, diabetes, systolic CHF and possible COPD who presents to emergency room with complaints of shortness of breath, increasing anasarca and malignant ascites. His last paracentesis was approximately 3 weeks ago.During this hospital stay he was managed for shortness of breath 2/2 symptomatic malignant ascites, s/p ultrasound-guided paracentesis with 4.2 Ls fluid removed, he was also continued on aggressive IV diuresis, he was also managed for heart failure with reduced ejection fraction, for his b/l pleural effusion likely secondary to hepatic hydrothorax, with possible contusion from heart failure , ultrasound chest was done Small bilateral pleural effusions, LEFT greater than RIGHT. Follow-up XR chest:Effusion on the right has improved.Pleural effusion was not tapped as it is a good possibility that he will respond to continued diuresis. Patient was continued to be managed for DVT he was kept on therapeutic Lovenox, was discharged on home dose of warfarin. Patient responded well to above medical management and is being discharged in stable condition to home, his Lasix dose has been increased from 20 p.o. daily to 40 mg p.o. twice daily oral potassium has been added.Patient will follow up with the primary care physician as an outpatient. He has been continued on his other home medications. Physical Exam Const: COMMON NORMALS: patient oriented x3 HENMT: COMMON NORMALS: normocephalic and atraumatic HEAD & SCALP: normocephalic and atraumatic Resp: OTHER: Diminished air entry b/l Cardio: COMMON NORMALS: regular rate, regular rhythm, S1 normal heart sound present, S2 normal heart sound present, No gallops present (Cardio), No murmurs present (Cardio), No rub (Cardio) and Peripheral pulses 2+ throughout RATE: regular rate RHYTHM: regular rhythm HEART SOUNDS: S1 normal heart sound present and S2 normal heart sound present PERIPHERAL PULSES: Peripheral pulses 2+ throughout GI: COMMON NORMALS: Normal to inspection, nondistended, normoactive bowel sounds present, Soft to palpation, non-tender and No hepatosplenomegaly present PALPATION: Yes Soft to palpation and Yes No hepatosplenomegaly present Extremity: NARRATIVE EXTREMITY EXAM: 2 + bilateral lower extremity pitting edema Neuro: COMMON NORMALS: patient oriented x3 Discharge Data Data Completed and Pending: Completed Studies During Hospitalization Category Date Time Status XR chest 1V nenita ble [id number] Routine Exams 09/13/21 06:00 Completed XR chest 1V nenita ble [id number] Urgent Exams 09/09/21 16:45 Completed US chest [id number] Ro utine Ultrasound 09/13/21 19:57 [place]acent[place] bd w [id number] Routine Ultrasound 09/12/21 11:39 Completed Pending at discharge Category Date Time Status Complete Blood Co unt w/Auto AM LABS Lab 09/15/21 04:00 Ordered Comprehensive Met abolic Panel AM LA BS Lab 09/15/21 04:00 Ordered Labs from last 24 hours 09/14/21 09/14/21 09/14/21 04:54 04:54 04:54 WBC 10.8 H RBC 4.63 Hgb 12.6 Hct 40.2 L MCV 86.8 MCH 27.2 L MCHC 31.3 RDW 15.9 H Plt Count 348 MPV 9.6 Neut % (Auto) 69.3 Lymph % (Auto) 10.0 [place] % (Auto) 18.8 Eos % (Auto) 1.2 Baso % (Auto) 0.4 Neut # (Auto) 7.46 Lymph # (Auto) 1.1 [place] # (Auto) 2.0 H Eos # (Auto) 0.1 Baso # (Auto) 0.0 Nucleated RBC % (a uto) 0 Nucleated RBCs # 0.0 PT 16.80 H INR 1.32 H Sodium 131 L Potassium 3.2 L Chloride 82 L Carbon Dioxide 35 H Anion Gap 17.2 BUN 12 Creatinine 0.6 L GFR Calculation 134.8 H Glucose 141 H Calculated Osmolal ity 274 L Calcium 8.4 L Total Bilirubin 0.7 AST 21 ALT 14 Alkaline Phosphata se 91 Total Protein 6.3 L Albumin 3.1 L Globulin 3.2 Vitals: Last Vital Signs Temp 97.9 F 09/14/21 07:11 Pulse 76 09/14/21 07:23 Resp 17 09/14/21 07:23 BP 133/89 09/14/21 07:11 Pulse Ox 93 09/14/21 07:23 Discharge Plan Discharge Patient Disposition: Home Condition: Stable Prescriptions: New Klor-Con M20 20 mEq tablet,ER particles/crystals 20 meq PO DAILY Qty: 30 RF: 1 Lasix 40 mg tablet 40 mg PO BID Qty: 60 RF: 3 Continued albuterol sulfate 2.5 mg /3 mL (0.083 %) solution for nebulization 2.5 mg inhalation Q4H PRN (Reason: shortness of breath or wheezing) Qty: 180 RF: 0 miscellaneous medical supply Misc See Rx Instructions miscellaneous .COMPLEX Qty: 1 RF: 0 zolpidem 10 mg tablet 10 mg PO .at bedtime 30 Days Qty: 30 RF: 2 fentanyl 12 mcg/hr patch 72 hour 1 patch transdermal Q72H 15 Days Qty: 5 RF: 0 spironolactone 25 mg tablet 25 mg PO DAILY 30 Days Qty: 30 RF: 0 albuterol sulfate [Ventolin HFA] 90 mcg/actuation HFA aerosol inhaler 2 puff INHALATION Q6H PRN (Reason: Shortness Of Breath) Qty: 8.5 RF: 5 gabapentin 300 mg capsule 300 mg PO TID PRN (Reason: pain) 30 Days Qty: 90 RF: 2 metoprolol succinate 25 mg tablet extended release 24 hr 25 mg PO DAILY 30 Days Qty: 30 RF: 2 metformin 500 mg tablet See Rx Instructions .ROUTE .COMPLEX Qty: 60 RF: 2 miscellaneous medical supply Misc See Rx Instructions miscellaneous .COMPLEX Qty: 1 RF: 0 (DME) Diabetic Shoes See Rx Instructions .Route .MEDSUPPLY Qty: 1 RF: 0 warfarin 4 mg tablet See Rx Instructions mg .ROUTE .COMPLEX Qty: 60 RF: 2 oxycodone 5 mg tablet 5 mg PO TID PRN (Reason: pain) 30 Days Qty: 90 RF: 0 lorazepam [Lorazepam Intensol] 2 mg/mL concentrate 0.25 mg PO Q4H PRN (Reason: anxiety) Qty: 30 RF: 0 hyoscyamine sulfate 0.125 mg tablet, sublingual 0.125 mg sublingual Q4H PRN (Reason: secretions) Qty: 30 RF: 1 warfarin 5 mg tablet 5 mg PO 1400 Qty: 30 RF: 0 hydromorphone 2 mg tablet 2 mg PO Q4H PRN (Reason: pain) 5 Days Qty: 30 RF: 0 magnesium 1 tab PO DAILY@0700 RF: 0 montelukast 10 mg tablet 10 mg PO DAILY RF: 0 Discontinued furosemide 20 mg tablet 20 mg PO DAILY RF: 0 Discharge Orders: Discharge Order (Routine); Ordered 09/14/21 Ordered By: Garland Alfaro Referrals: Nan Sellers MD [Primary Care Provider] - 09/20/21 3:00 pm Discharge Diet: Diabetic Discharge Activity: Increase activity as tolerated Patient Instructions: Malignant Ascites, Furosemide (By mouth) (Lasix), Potassium Chloride (By mouth), Pleural Effusion (DC), Opioid Safety Discharge Attestations Time Spent in Discharge Care*: less than 30 min Specific Discharge Activities: educating patient, educating and/or supporting family/caregiver, discussing with pcp/other providers, discussing with insurance case manager/social workers/dc planners, documenting/other paperwork and evaluating patient/reviewing data Status at Discharge: Cognitive status at discharge: cognitively intact, Behavioral status at discharge: cooperative, Quality Metrics Clinical Quality Measures During this hospital stay, did patient experience: None Coding Level of Care Code Acute Chg FW DC note Exam Expanded Problem Focused Diagnoses Malignant ascites R18.0 Colon cancer C18.9 Colon location: unspecified part of colon CHF (congestive heart failure) I50.23 Heart failure chronicity: acute on chronic Heart failure type: systolic Hypertension I10 Hypertension type: essential hypertension DVT (deep venous thrombosis) I82.503 Affected thrombotic vein of extremity: unspecified vein of extremity Chronicity: chronic DVT location: lower extremity Laterality: bilateral Pleural effusion J90
--- NOTE | 2021-09-14 11:10 | PC.SOCIAL ---
IMM UPDATED IMM dated and initialed and copy given to patient
[2021-09-14 12:01] VITALS: PULSE 76; RESP 17; O2SAT 93
== END 2021-09-14 11:50 | disposition hospice, home (50) | DRG 374 ==
LOC: ER 22:10 → MEDSURG 23:04
PROVIDERS: Emergency Medicine; Family Medicine; Admitting Provider Student in an Organized Health Care Education/Training Program; Emergency Provider Emergency Medicine; PCP Family Medicine; Visit Provider Internal Medicine
DX: C18.9 Malignant neoplasm of colon, unspecified (principal); I50.23 Acute on chronic systolic (congestive) heart failure; R18.0 Malignant ascites; C78.00 Secondary malignant neoplasm of unspecified lung; I82.503 Chronic embolism and thrombosis of unspecified deep veins of lower extremity, bilateral; J94.8 Other specified pleural conditions; J91.8 Pleural effusion in other conditions classified elsewhere; I11.0 Hypertensive heart disease with heart failure; J44.9 Chronic obstructive pulmonary disease, unspecified; G47.00 Insomnia, unspecified; G47.33 Obstructive sleep apnea (adult) (pediatric); E11.40 Type 2 diabetes mellitus with diabetic neuropathy, unspecified; Z79.891 Long term (current) use of opiate analgesic; Z79.01 Long term (current) use of anticoagulants; Z79.84 Long term (current) use of oral hypoglycemic drugs; Z87.891 Personal history of nicotine dependence
CPT/HCPCS: 36415; 49083; 71045; 76604; 80048; 80053; 82248; 85025; 85610; 85730; 94640; 96372; 96374; 99285; J1170; J1650; J1940; J2405; J3480; J7611

== ENCOUNTER → 2021-09-20 10:05 | Outpatient (BNVA) | payer MEDICARE, SELFPAY | PROVIDERS: PCP Family Medicine; Visit Provider Family Medicine | DX: Z79.01 Long term (current) use of anticoagulants (principal); I82.503 Chronic embolism and thrombosis of unspecified deep veins of lower extremity, bilateral; Z51.81 Encounter for therapeutic drug level monitoring | CPT/HCPCS: 85610 ==

== ENCOUNTER 2021-09-21 17:38 | Emergency (ER) | payer MEDICARE, SELFPAY ==
--- NOTE | 2021-09-21 17:39 | ED_ITS ---
HPI - Head Injury General: Chief complaint: Wound/Laceration Stated complaint: HEAD LAC POST FALL Time Seen by Provider: 09/21/21 17:38 History of Present Illness: HPI Narrative: Mr. Escalera is a 66-year-old gentleman with history of metastatic cancer, COPD, history of DVT on warfarin who presents to the emergency department due to fall. Fall was just prior to coming in. Reports simply bending over too far to pick something up and falling landing on his head. There was head strike but no loss of consciousness. He does have mild pain. Intensity of head discomfort is mild. Course has remained similar. No specific reading chest pain, shortness of breath, dizziness, lightheadedness. He is currently holding his warfarin for a paracentesis on Sunday. Otherwise he has been in his baseline health which is relatively poor. No new symptoms reported. No increase in oxygen demand. No other specific exacerbating relieving factors. Review of Systems General: Reports: 10 or more systems reviewed and unremarkable except in HPI and below PFSH ED PFSH: Medical History Allergy CHF (congestive heart failure) Colon cancer COPD (chronic obstructive pulmonary disease) Diabetes DVT (deep venous thrombosis) Hypertension Insomnia Neuropathy GENIE (obstructive sleep apnea) Surgical History H/O hemorrhoidectomy Social History Smoking and tobacco status: former smoker Alcohol intake: never Physical Exam Narrative: EXAM NARRATIVE: GENERAL/CONSTITUTIONAL - chronically ill-appearing. Eyes - PERRL, no conjunctival injection ENMT - L-shaped laceration with longest segment being approximately 3 cm with leg being 1 cm on the right scalp just posterior to the hairline. Atraumatic external nose and ears. Moist mucous membranes NECK - trachea midline CARDIOVASCULAR - regular rate and rhythm. Peripheral pulses 2+ and equal RESPIRATORY - diminished at the left mid and base. Baseline oxygen in place ABDOMEN/GI - Nontender/Nondistended. MSK - Extremities without obvious deformity or tenderness to palpation SKIN - Warm, Dry NEURO - alert and appropriately oriented. No focal neurologic deficit moves all extremities equally. Procedures Laceration Laceration 1: Site: scalp Side (If applicable): right Size (cm): 4 Description: irregular Depth: simple, single layer Local Anesthetic: lidocaine 1% and with epi Amount of anesthesia used (mL): 4 Pre-repair: wound explored, irrigated extensively and deep structures inta ct Size (cm): other (tonny) Number of sutures: 5 Course ED course: - Patient was seen and evaluated by me at bedside - Vital signs obtained - Initial evaluation notable for exam as noted above - Imaging notable for CT head and neck negative for acute traumatic injury, effusion appears similar to prior and clinically patient feels similar. - Laceration repaired with 5 tonny - Upon serial reexamination after treatment the patient was improved - Based on patient history, evaluation, labs, and imaging as interpreted the most likely cause of the patient's condition is mechanical fall with laceration - The results of ED evaluation were discussed with the patient including prescriptions and/or symptomatic cares (if applicable) including appropriate and responsible use, followup plan, and return precautions. The patient verbalized understanding and felt safe for discharge. - Patient discharged in satisfactory condition. Vital Signs: Vital signs: Vital Signs Temperature 99.3 F 09/21/21 17:41 Pulse Rate 96 09/21/21 18:44 Respiratory Rate 16 09/21/21 18:44 Blood Pressure 150/104 09/21/21 18:44 Pulse Oximetry 92 09/21/21 18:44 MDM - Head Injury Medical Records: Attestation: I reviewed the patient's medical records. Lab Data: Attestation: I reviewed the patient's lab results. Discharge Plan Discharge Patient Disposition: Home Clinical Impression: Fall, Laceration of scalp, Pleural effusion Condition: Stable Prescriptions: No Action albuterol sulfate 2.5 mg /3 mL (0.083 %) solution for nebulization 2.5 mg inhalation Q4H PRN (Reason: shortness of breath or wheezing) Qty: 180 RF: 0 miscellaneous medical supply Misc See Rx Instructions miscellaneous .COMPLEX Qty: 1 RF: 0 zolpidem 10 mg tablet 10 mg PO .at bedtime 30 Days Qty: 30 RF: 2 metoprolol succinate 25 mg tablet extended release 24 hr 25 mg PO DAILY 30 Days Qty: 30 RF: 2 gabapentin 300 mg capsule 300 mg PO TID PRN (Reason: pain) 30 Days Qty: 90 RF: 2 albuterol sulfate [Ventolin HFA] 90 mcg/actuation HFA aerosol inhaler 2 puff INHALATION Q6H PRN (Reason: Shortness Of Breath) Qty: 8.5 RF: 5 fentanyl 25 mcg/hr patch 72 hour 1 patch transdermal Q72H 15 Days Qty: 1 RF: 0 hydromorphone 2 mg tablet 2 mg PO Q2H PRN (Reason: pain) 7 Days Qty: 84 RF: 0 ipratropium-albuterol 0.5 mg-3 mg(2.5 mg base)/3 mL solution for nebulization 3 ml inhalation Q4H PRN (Reason: wheezing) Qty: 180 RF: 2 metformin 500 mg tablet See Rx Instructions .ROUTE .COMPLEX Qty: 60 RF: 2 miscellaneous medical supply Misc See Rx Instructions miscellaneous .COMPLEX Qty: 1 RF: 0 (DME) Diabetic Shoes See Rx Instructions .Route .MEDSUPPLY Qty: 1 RF: 0 warfarin 4 mg tablet See Rx Instructions mg .ROUTE .COMPLEX Qty: 60 RF: 2 lorazepam [Lorazepam Intensol] 2 mg/mL concentrate 0.25 mg PO Q4H PRN (Reason: anxiety) Qty: 30 RF: 0 hyoscyamine sulfate 0.125 mg tablet, sublingual 0.125 mg sublingual Q4H PRN (Reason: secretions) Qty: 30 RF: 1 warfarin 5 mg tablet 5 mg PO 1400 Qty: 30 RF: 0 spironolactone 25 mg tablet See Rx Instructions .ROUTE .COMPLEX Qty: 30 RF: 2 magnesium 1 tab PO DAILY@0700 RF: 0 Klor-Con M20 20 mEq tablet,ER particles/crystals 20 meq PO DAILY Qty: 30 RF: 1 Lasix 40 mg tablet 40 mg PO BID Qty: 60 RF: 3 Discharge Orders: Discharge ED (Routine); Ordered 09/21/21 Ordered By: Sanju Mas Referrals: Nan Sellers MD [Primary Care Provider] - Discharge Diet: Usual diet Discharge Activity: Limit activity as instructed Patient Instructions: Scalp Laceration, Staple Care (ED), Fall Prevention (ED), Pleural Effusion Activity Restrictions/Additional Instructions: Thank you for visiting the emergency department. You were seen and evaluated for fall with laceration. This was repaired with tonny. [place] need to be removed in 7 to 10 days. Please watch for signs of infection including but not limited to increased redness, drainage, uncontrolled pain, fever, chills, or any other symptoms that you are concerned about and feel need emergency department evaluation. You were again noted to have a pleural effusion. Please follow-up with your physician regarding this. Return as needed. Coding Level of Care Code ED Crossword Puzzle Maker for Molina Henry
[2021-09-21 17:41] VITALS: BP 132/85; PULSE 89; RESP 20; TEMP 37.4; O2SAT 96; BMI 36.9
--- NOTE | 2021-09-21 17:46 | CTR_ITS ---
PROCEDURE INFORMATION: Exam: CT Head Without Contrast Exam date and time: 09/21/2021 5:46 PM Age: 66 years old Clinical indication: Injury or trauma; Fall; Blunt trauma (contusions or hematomas); Additional info: Fall, headstrike right forehead, warfarin TECHNIQUE: Imaging protocol: Computed tomography of the head without contrast. Radiation optimization: All CT scans at this facility use at least one of these dose optimization techniques: automated exposure control; mA and/or kV adjustment per patient size (includes targeted exams where dose is matched to clinical indication); or iterative reconstruction. COMPARISON: No relevant prior studies available. RADIATION DOSE METRICS: Total DLP (mGy-cm): 1810.49 FINDINGS: Brain: No hemorrhage. Mild diffuse cerebral atrophy and sequela of chronic small vessel ischemic disease. No mass effect. Cerebral ventricles: No ventriculomegaly. Paranasal sinuses: Visualized sinuses are unremarkable. No fluid levels. Mastoid air cells: Visualized mastoid air cells are well aerated. Bones/joints: Unremarkable. No acute fracture. Soft tissues: Unremarkable. CT/CT head wo con* [id number] IMPRESSION: No acute intracranial abnormality.
--- NOTE | 2021-09-21 17:46 | CTR_ITS ---
PROCEDURE INFORMATION: Exam: CT Cervical Spine Without Contrast Exam date and time: 09/21/2021 5:46 PM Age: 66 years old Clinical indication: Injury or trauma; Fall; Blunt trauma; Additional info: Fall, head injury TECHNIQUE: Imaging protocol: Computed tomography images of the cervical spine without contrast. Radiation optimization: All CT scans at this facility use at least one of these dose optimization techniques: automated exposure control; mA and/or kV adjustment per patient size (includes targeted exams where dose is matched to clinical indication); or iterative reconstruction. COMPARISON: CT head wo con* [id number] 09/21/2021 6:00 PM RADIATION DOSE METRICS: Total DLP (mGy-cm): 726.06 FINDINGS: Bones/joints: No acute fracture. Normal alignment. Discs/Spinal canal/Neural foramina: Degenerative disc disease with bulky endplate osteophyte formation predominantly centered along the mid and lower cervical spine. Lungs: Large volume left pleural effusion extending to the left lung apex. Soft tissues: Unremarkable. CT/CT cervical spin wo con* [id number] IMPRESSION: 1. No acute osseous abnormalities of the cervical spine. 2. Large volume left pleural effusion extending to the left lung apex.
[2021-09-21 18:44] VITALS: BP 150/104; PULSE 96; RESP 16; O2SAT 92
--- NOTE | 2021-09-21 18:54 | XRR_ITS ---
PROCEDURE INFORMATION: Exam: XR Chest Exam date and time: 09/21/2021 6:54 PM Age: 66 years old Clinical indication: Other: Effusion; Additional info: Abnormal CT, eval degree of effusion TECHNIQUE: Imaging protocol: XR of the chest. Views: 1 view. COMPARISON: CR XR chest 1V portable [id number] 09/13/2021 6:38 AM FINDINGS: Tubes, catheters and devices: Right-sided Port-A-Cath with tip at the atrial caval junction. Lungs: Bibasilar atelectasis versus infiltrate. Pleural spaces: Small left and moderate left pleural effusions again seen similar to prior exam. Heart/Mediastinum: Unremarkable. No cardiomegaly. Bones/joints: Unremarkable. XR/XR chest 1V portable [id number] IMPRESSION: 1. Small left and moderate left pleural effusions again seen similar to prior exam. 2. Bibasilar atelectasis versus infiltrate.
--- NOTE | 2021-09-21 19:30 | PC.NURSE ---
patient states he leaned over to picker and packer object and lost balance and fell forward striking his head. He denies LOC. has approx 3 cm lac to right frontal. bleeding has been controlled. awaiting staple placement. family at bedside.
[2021-09-21 20:11] VITALS: BP 141/89; PULSE 99; RESP 18; TEMP 36.8; O2SAT 94
[2021-09-21 20:54] VITALS: BP 145/89; PULSE 80; RESP 18; O2SAT 94
== END 2021-09-21 20:50 | disposition home or self-care (01) ==
PROVIDERS: Emergency Provider Emergency Medicine; PCP Family Medicine
DX: S01.01XA Laceration without foreign body of scalp, initial encounter (principal); J90 Pleural effusion, not elsewhere classified; Z79.01 Long term (current) use of anticoagulants; Z79.84 Long term (current) use of oral hypoglycemic drugs; I50.9 Heart failure, unspecified; Z85.038 Personal history of other malignant neoplasm of large intestine; J44.9 Chronic obstructive pulmonary disease, unspecified; E11.40 Type 2 diabetes mellitus with diabetic neuropathy, unspecified; Z87.891 Personal history of nicotine dependence; W19.XXXA Unspecified fall, initial encounter
CPT/HCPCS: 70450; 71045; 72125; 99283

== ENCOUNTER 2021-09-23 09:53 | Outpatient (CLI) | payer OTHER, SELFPAY ==
[2021-09-23 10:18] VITALS: BP 141/111; PULSE 87; RESP 18; TEMP 36.1; O2SAT 95; BMI 36.9
[2021-09-23 11:17] LABS: INR 1.25 (0.8-1.2)
--- NOTE | 2021-09-23 11:30 | US_ITS ---
WS: [id number] ULTRASOUND-GUIDED THERAPEUTIC PARACENTESIS Procedure, risks, and complications have been explained to the patient. Consent is obtained. Utilizing aseptic technique and 1% buffered lidocaine, a small dermatome was made through which a 5 F rench Yueh catheter was inserted. Approximately 4800 ml of clear yellow peritoneal fluid was obtained without difficulty. No complications encountered. US/US paracentesis abd w [id number] IMPRESSION: Uncomplicated paracentesis yielding 4800 ml of peritoneal fluid.
== END 2021-09-23 09:54 | disposition home or self-care (01) ==
LOC: GILAB 09:57
PROVIDERS: PCP Family Medicine; Visit Provider Family Medicine
DX: C18.9 Malignant neoplasm of colon, unspecified (principal); R18.0 Malignant ascites; G89.3 Neoplasm related pain (acute) (chronic)
CPT/HCPCS: 49083; 85610